=== PATIENT | male | born 1945 | race Caucasian/White ===

== ENCOUNTER → 2018-01-30 14:11 | Outpatient (CLI) | payer MEDICARE, OTHER, SELFPAY ==
[2018-01-30 15:28] LABS: Protein, Urine (Random) < 6.0 mg/dL (<11.9)
[2018-01-30 15:48] LABS: Albumin, Serum 3.8 g/dL (3.2-5.0); BUN 21 mg/dL (7-18); Calcium,Total 9.2 mg/dL (8.5-10.1); Chloride 103 mmol/L (98-107); EST Glomerular Filtration Rate 53 mL/min (>60); Est Glom Filt Rate - Afr Amer 64 mL/min (>60); Glucose 179 mg/dL (74-106); Phosphorus 3.5 mg/dL (2.5-4.9); Potassium 4.8 mmol/L (3.5-5.1); Sodium Level 140 mmol/L (136-145)
== END ==
PROVIDERS: Family Provider Family Medicine Geriatric Medicine; PCP Family Medicine Geriatric Medicine; Visit Provider Internal Medicine Nephrology
DX: E11.22 Type 2 diabetes mellitus with diabetic chronic kidney disease (principal); N18.3 Chronic kidney disease, stage 3 (moderate)
CPT/HCPCS: 36415; 80069; 82570; 84156

== ENCOUNTER → 2018-02-04 13:36 | Outpatient (CLI) | payer MEDICARE, OTHER, SELFPAY ==
[2018-02-04 14:59] LABS: Absolute Lymphocyte Count 1.59 X10^3/ul (0.83-4.51); Absolute Neutrophil Count 5.8 X10^3/uL (2.0-7.7); Basophil# 0.03 X10^3/uL; Basophil% 0.3 % (0-1); Eosinophil# 0.44 X10^3/uL; Eosinophils% 4.9 % (0-5); Hematocrit 45.6 % (40-54); Hemoglobin 15.1 g/dl (13.0-16.5); Lymphocyte # 1.59 X10^3/ul (4.0); Lymphocyte % 17.8 % (19-41); Mean Corp Hgb Conc 33.1 g/gl (32-36); Mean Corpuscular Hgb 29.5 pg (27.0-32.0); Mean Corpuscular Volume 89.1 fL (80-94); Mean Platelet Vol. 10.4 fl (6.2-12.0); Monocyte# 1.11 X10^3/uL; Monocyte% 12.4 % (0-10); Neutrophil # 5.75 X10^3/uL (2.7-7.7); Neutrophil % 64.5 % (47-70); Platelet Count 227 K/mm3 (150-450); RBC Distribution Width SD 45.8 fl (35.1-43.9); Red Blood Count 5.12 M/mm3 (4.6-6.2); White Blood Count 8.9 K/mm3 (4.4-11.0)
[2018-02-04 15:07] LABS: POSITIVE COUNT NO; POSITIVE DIFFERENTIAL NO; POSITIVE MORPHOLOGY NO
[2018-02-04 15:29] LABS: AST(SGOT) 20 U/L (15-37); Alanine Aminotransfer ALT/SGPT 24 U/L (16-61); Albumin, Serum 3.6 g/dL (3.2-5.0); Alkaline Phosphatase 62 U/L (45-117); Anion Gap 12 (5-15); BUN 24 mg/dL (7-18); BUN/Creat Ratio 16.7 RATIO (10-20); Calcium,Total 8.9 mg/dL (8.5-10.1); Chloride 101 mmol/L (98-107); Creatinine, Serum 1.44 mg/dL (0.70-1.30); EST Glomerular Filtration Rate 51 mL/min (>60); Est Glom Filt Rate - Afr Amer 62 mL/min (>60); Globulin 3.6 g/dL (2.2-4.2); Glucose 164 mg/dL (74-106); PSA,Total - Annual Screen 0.02 ng/mL (0.00-4.00); Potassium 4.7 mmol/L (3.5-5.1); Protein, Total 7.2 g/dL (6.4-8.2); Sodium Level 139 mmol/L (136-145); Thyroid Stim Hormone (TSH) 1.94 uIU/mL (0.358-3.74)
[2018-02-05 08:32] LABS: Vitamin D,25 Hydroxy 28.2 ng/mL (29.95-100.01)
== END ==
PROVIDERS: Family Provider Family Medicine Geriatric Medicine; PCP Family Medicine Geriatric Medicine; Visit Provider Family Medicine Geriatric Medicine
DX: E11.9 Type 2 diabetes mellitus without complications (principal); E55.9 Vitamin D deficiency, unspecified; F52.8 Other sexual dysfunction not due to a substance or known physiological condition
CPT/HCPCS: 36415; 80053; 82306; 84153; 84403; 84443; 85025; G0103

== ENCOUNTER → 2018-08-15 09:44 | Outpatient (CLI) | payer MEDICARE, OTHER, SELFPAY ==
[2018-08-15 12:05] LABS: Absolute Lymphocyte Count 2.57 X10^3/ul (0.83-4.51); Absolute Neutrophil Count 3.7 X10^3/uL (2.0-7.7); Basophil# 0.05 X10^3/uL; Basophil% 0.7 % (0-1); Eosinophil# 0.56 X10^3/uL; Eosinophils% 7.3 % (0-5); Hematocrit 44.8 % (40-54); Lymphocyte # 2.57 X10^3/ul (4.0); Lymphocyte % 33.5 % (19-41); Mean Corp Hgb Conc 33.5 g/gl (32-36); Mean Corpuscular Hgb 30.1 pg (27.0-32.0); Mean Platelet Vol. 10.5 fl (6.2-12.0); Monocyte# 0.75 X10^3/uL; Monocyte% 9.8 % (0-10); Neutrophil # 3.73 X10^3/uL (2.7-7.7); Neutrophil % 48.4 % (47-70); Platelet Count 255 K/mm3 (150-450); RBC Distribution Width CV 14.3 % (11.6-14.6); RBC Distribution Width SD 46.4 fl (35.1-43.9); Red Blood Count 4.98 M/mm3 (4.6-6.2); White Blood Count 7.7 K/mm3 (4.4-11.0)
[2018-08-15 12:08] LABS: POSITIVE COUNT NO; POSITIVE DIFFERENTIAL NO; POSITIVE MORPHOLOGY NO
[2018-08-15 12:19] LABS: Vitamin D,25 Hydroxy 33.4 ng/mL (29.95-100.01)
[2018-08-15 12:21] LABS: ALB/GLOB Ratio 1.1 RATIO (0.9-2.4); AST(SGOT) 19 U/L (15-37); Alanine Aminotransfer ALT/SGPT 30 U/L (16-61); Albumin, Serum 3.7 g/dL (3.2-5.0); Alkaline Phosphatase 68 U/L (45-117); Anion Gap 8 (5-15); BUN 21 mg/dL (7-18); BUN/Creat Ratio 13.5 RATIO (10-20); Calcium,Total 8.7 mg/dL (8.5-10.1); Chloride 103 mmol/L (98-107); Creatinine, Serum 1.55 mg/dL (0.70-1.30); EST Glomerular Filtration Rate 47 mL/min (>60); Est Glom Filt Rate - Afr Amer 57 mL/min (>60); Globulin 3.4 g/dL (2.2-4.2); Glucose 254 mg/dL (74-106); Potassium 4.9 mmol/L (3.5-5.1); Protein, Total 7.1 g/dL (6.4-8.2); Sodium Level 138 mmol/L (136-145); Thyroid Stim Hormone (TSH) 1.96 uIU/mL (0.358-3.74)
== END ==
PROVIDERS: Family Provider Family Medicine Geriatric Medicine; PCP Family Medicine Geriatric Medicine; Visit Provider Family Medicine Geriatric Medicine
DX: E11.9 Type 2 diabetes mellitus without complications (principal); E55.9 Vitamin D deficiency, unspecified; I10 Essential (primary) hypertension; F52.8 Other sexual dysfunction not due to a substance or known physiological condition; Z12.5 Encounter for screening for malignant neoplasm of prostate
CPT/HCPCS: 36415; 80053; 82306; 84403; 84443; 85025

== ENCOUNTER → 2018-10-10 12:17 | Outpatient (CLI) | payer MEDICARE, OTHER, SELFPAY ==
[2018-10-10 13:29] LABS: Albumin, Serum 3.8 g/dL (3.2-5.0); BUN 18 mg/dL (7-18); BUN/Creat Ratio 12.2 RATIO (10-20); Calcium,Total 9.1 mg/dL (8.5-10.1); Chloride 103 mmol/L (98-107); Creatinine, Serum 1.47 mg/dL (0.70-1.30); EST Glomerular Filtration Rate 50 mL/min (>60); Est Glom Filt Rate - Afr Amer 61 mL/min (>60); Glucose 274 mg/dL (74-106); Phosphorus 3.5 mg/dL (2.5-4.9); Potassium 4.5 mmol/L (3.5-5.1); Sodium Level 139 mmol/L (136-145)
== END ==
PROVIDERS: Family Provider Family Medicine Geriatric Medicine; PCP Family Medicine Geriatric Medicine; Referring Provider Internal Medicine Nephrology; Visit Provider Internal Medicine Nephrology
DX: N18.3 Chronic kidney disease, stage 3 (moderate) (principal)
CPT/HCPCS: 36415; 80069

== ENCOUNTER → 2018-10-14 12:13 | Outpatient (CLI) | payer MEDICARE, OTHER, SELFPAY ==
[2018-10-14 14:15] LABS: Protein:Creat Ratio 62 mg/g CRE (0-200)
--- OUTSIDE RECORDS SUMMARY | 2018-11-30 14:27 | XMS RPT_ITS ---
:1945 Author Organization [place] Support Name Relationship Address Phone SUZANNA SOUZA Unavailable [address] + [place] [address] [facility] Unavailable [address] + [place] [address] JAGDEEP VILLEGAS Unavailable [address] + [address] [place] [address] HARLEY SUZANNA Unavailable [address] + [place] [address] [facility] [place] Unavailable [address] + [place] [address] JAGDEEP VILLEGAS Unavailable [address] + [address] [place] [address] SUZANNA SOUZA Unavailable [address] + [facility] [address] [facility] [place] Unavailable [address] + [place] [address] JAGDEEP VILLEGAS Unavailable [address] + [address] [place] [address] SUZANNA SOUZA Unavailable [address] + [facility] [address] [facility] [place] Unavailable [address] + [place] [address] JAGDEEP VILLEGAS Unavailable [address] + [address] [place] [address] SUZANNA SOUZA Unavailable [address] + [facility] [place] [address] [facility] [place] Unavailable [address] + [place] [address] JAGDEEP VILLEGAS Unavailable [address] + [address] [place] [address] SUZANNA SOUZA Unavailable [address] + [place] [address] [facility] [place] Unavailable [address] + [place] [address] MAI VILLEGASH Unavailable [address] + [address] [place] [address] SUZANNA SOUZA Unavailable [address] + [place] [address] [facility] [place] Unavailable [address] + [place] [address] JAGDEEP VILLEGAS Unavailable [address] + [address] [place] [address] Care Team Providers Name Role Phone Jai, Zack Chi Primary Care Unavailable Kasia Allen Attending Unavailable Jai, Zack Chi Attending Unavailable Jai, Zack Chi Primary Care Unavailable AlejandroKasia Attending Unavailable Jai, Zack Chi Primary Care Unavailable Jai, Zack Chi Attending Unavailable Jai, Zack Chi Primary Care Unavailable Kasia Allen Attending Unavailable Jai, Zack Chi Primary Care Unavailable Alejandro Kasia Referring Unavailable Alejandro, Kasia Attending Unavailable Jai, Zack Chi Primary Care Unavailable Jai, Zack Chi Attending Unavailable Jai, Zack Chi Primary Care Unavailable PROBLEMS PROBLEMS DATE TYPE CONDITION / CODE ATTENDING STATUS SOURCE 10/14/2018 Unknown N18.3 - Chronic Jai, Zack Chi Active [place] kidney disease, Community stage 3 (moderate) Hospital / N18.3(ICD-10) Repository 02/04/2018 Unknown E11.9 - Type 2 Jai, Zack Chi Active [facility] diabetes mellitus Community without Hospital complications / Repository E11.9(ICD-10) 02/04/2018 Unknown E55.9 - Vitamin D Jai, Zack Chi Active [place] deficiency, Community unspecified / Hospital E55.9(ICD-10) Repository 02/04/2018 Unknown 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 mg/dL Normal UR CREAT 113.00 LAB L501.1930 <11.9 mg/dL Normal 7.0 PROTEIN,UR.R AN. LAB L501.1940 0-200 mg/g CRE Normal PROT:CRE 62 RATIO Performed By: #### L501.0900 #### [facility] [address] [facility] [place], [address] RENAL PROFILE Collected: 10/10/2018 Status: F Source: CHRISTIAN 12:24 PM [facility] REPOSITORY TYPE CODE TESTS RESULT OUT OF RANGE REFERENCE UNITS LAB L501.0100 74-106 mg/dL High GLU 274 Result Comment: Glucose result greater than or equal to 200 mg/dL suggests DIABETES MELLITUS per A.D.A. criteria. Please note revised GLUCOSE reference range effective 2017. LAB L501.1000 7-18 mg/dL Normal BUN 18 LAB L501.1100 0.70-1.30 mg/dL High CREAT,SERUM 1.47 Result Comment: The validity of the calculated GFR AND GFRAA in patients over 70 years has not been determined. Clinical correlation is essential. LAB L501.1110 >60 mL/min Low EST GFR 50 Result Comment: Non- GFR Calc LAB L501.1115 >60 mL/min Normal EST GFR - AA 61 Result Comment: GFR Calc LAB L501.1300 10-20 RATIO Normal BUN/CRE 12.2 LAB L501.1800 3.2-5.0 g/dL Normal ALB 3.8 LAB L501.2200 8.5-10.1 mg/dL CA Normal 9.1 LAB L501.2300 2.5-4.9 mg/dL Normal PHOS 3.5 LAB L501.5300 136-145 mmol/L NA Normal 139 LAB L501.5600 3.5-5.1 mmol/L K Normal 4.5 LAB L501.5900 98-107 mmol/L CL Normal 103 LAB L501.6100 21.0-32.0 mmol/L Normal CO2 29.0 Performed By: #### L500.3600 #### [facility] [address] [place], [place], [address] CBC W/DIFF, AUTOMATED Collected: 08/15/2018 Status: F Source: SCIO 9:45 AM [facility] REPOSITORY TYPE CODE TESTS RESULT OUT OF RANGE REFERENCE UNITS LAB L100.1000 4.4-11.0 K/mm3 Normal WBC 7.7 LAB L100.1200 4.6-6.2 M/mm3 Normal RBC 4.98 LAB L100.1300 13.0-16.5 g/dl Normal HGB 15.0 LAB L100.1400 40-54 % Normal HCT 44.8 LAB L100.1500 80-94 fL Normal MCV 90.0 LAB L100.1600 27.0-32.0 pg Normal MCH 30.1 LAB L100.1700 32-36 g/gl Normal MCHC 33.5 LAB L100.1810 11.6-14.6 % Normal RDW CV 14.3 LAB L100.1820 35.1-43.9 fl High RDW SD 46.4 LAB L100.1900 150-450 K/mm3 Normal PLT 255 LAB L100.2000 6.2-12.0 fl Normal MPV 10.5 LAB L100.2100 47-70 % Normal NEUT% 48.4 LAB L100.2200 19-41 % Normal LY% 33.5 LAB L100.2300 0-10 % Normal MONO% 9.8 LAB L100.2400 0-5 % High EO% 7.3 LAB L100.2500 0-1 % Normal BASO% 0.7 LAB L100.2550 0.0-0.9 % Normal IM GRAN % 0.300 Result Comment: IG% - Immature Granulocytes (promyelocytes, myelocytes and metamyelocytes) > 1% indicates that a LEFT SHIFT is Present. LAB L100.2620 2.0-7.7 X10 3/uL Normal Absolute Neut 3.7 LAB L100.2720 0.83-4.51 X10 3/ul Normal Absolute Lymph 2.57 Performed By: #### L100.0100 #### [facility] [address] [place], [address] VITAMIN D,25 HYDROXY Collected: 08/15/2018 Status: F Source: SCIO 9:45 AM [facility] REPOSITORY TYPE CODE TESTS RESULT OUT OF RANGE REFERENCE UNITS LAB L506.1000 29.95-100.01 ng/mL Normal Vitamin D 33.4 25-OH Result Comment: Vitamin D 25(OH) Status Range Deficiency <20 ng/mL (50nmol/L) Insuffciency 20 - 30 ng/mL (50 - 75 nmol/L) Sufficiency 30 - 100 ng/mL (75 - 250 nmol/L) Toxicity >100 ng/mL (>250 nmol/L) Performed By: #### L506.1000, L509.3000 #### [facility] [address] [place], [address] TESTOSTERONE, SERUM TOTAL Collected: 08/15/2018 Status: F Source: CHRISTIAN 9:45 AM [facility] REPOSITORY TYPE CODE TESTS RESULT OUT OF REFERENCE UNITS RANGE LAB L509.3000 ng/dL Testosterone Normal 95.76 Result Comment: NORMAL REFERENCE RANGES MALE AGE <50 123.06 - 813.86 ng/dL MALE AGE >50 89.98 - 780.10 ng/dL FEMALE PREMENOPAUSE AGE 21 - 60 9.01 - 47.94 ng/dL FEMALE POSTMENOPAUSE AGE 45 - 89 <7.00 - 45.62 ng/dL REFERENCE RANGE AND METHODOLOGY CHANGED 10/23/2017 Performed By: #### L506.1000, L509.3000 #### [facility] [address] [place], [address] COMPREHENSIVE METABOLIC Collected: 08/15/2018 Status: F Source: CHRISTIAN [facility] 9:45 AM [facility] REPOSITORY TYPE CODE TESTS RESULT OUT OF RANGE REFERENCE UNITS LAB L501.0100 74-106 mg/dL High GLU 254 Result Comment: Glucose result greater than or equal to 200 mg/dL suggests DIABETES MELLITUS per A.D.A. criteria. Please note revised GLUCOSE reference range effective 2017. LAB L501.1000 7-18 mg/dL High BUN 21 LAB L501.1100 0.70-1.30 mg/dL High CREAT,SERUM 1.55 Result Comment: The validity of the calculated GFR AND GFRAA in patients over 70 years has not been determined. Clinical correlation is essential. LAB L501.1110 >60 mL/min Low EST GFR 47 Result Comment: Non- GFR Calc LAB L501.1115 >60 mL/min Low EST GFR - AA 57 Result Comment: GFR Calc LAB L501.1300 10-20 RATIO Normal BUN/CRE 13.5 LAB L501.1500 6.4-8.2 g/dL T Normal PROT 7.1 LAB L501.1800 3.2-5.0 g/dL Normal ALB 3.7 LAB L501.1950 2.2-4.2 g/dL Normal GLOB 3.4 LAB L501.2000 0.9-2.4 RATIO Normal A/G 1.1 LAB L501.2200 8.5-10.1 mg/dL CA Normal 8.7 LAB L501.4100 15-37 U/L Normal AST 19 Result Comment: Slight Hemolysis, Result may be falsely increased. LAB L501.4305 45-117 U/L Normal ALK P 68 LAB L501.4405 16-61 U/L Normal ALT 30 LAB L501.4600 0.20-1.00 mg/dL Normal T BILI 0.50 LAB L501.5300 136-145 mmol/L Normal NA 138 LAB L501.5600 3.5-5.1 mmol/L Normal K 4.9 Result Comment: Slight Hemolysis, Result may be falsely increased. LAB L501.5900 98-107 mmol/L Normal CL 103 LAB L501.6100 21.0-32.0 mmol/L Normal CO2 27.0 LAB L501.6200 5-15 Normal 8 GAP Performed By: #### L500.4050, L501.9520 #### [facility] [address] [facility] [place], [place], [address] THYROID STIM HORMONE Collected: 08/15/2018 Status: F Source: SCIO (TSH) 9:45 AM [facility] REPOSITORY TYPE CODE TESTS RESULT OUT OF RANGE REFERENCE UNITS LAB L501.9520 0.358-3.74 uIU/mL Normal TSH 1.96 Performed By: #### L500.4050, L501.9520 #### [facility] [address] [facility]. [place], [place], [address] CBC W/DIFF, AUTOMATED Collected: 02/04/2018 Status: F Source: CHRISTIAN 1:39 PM [facility] REPOSITORY TYPE CODE TESTS RESULT OUT OF RANGE REFERENCE UNITS LAB L100.1000 4.4-11.0 K/mm3 Normal WBC 8.9 LAB L100.1200 4.6-6.2 M/mm3 Normal RBC 5.12 LAB L100.1300 13.0-16.5 g/dl Normal HGB 15.1 LAB L100.1400 40-54 % Normal HCT 45.6 LAB L100.1500 80-94 fL Normal MCV 89.1 LAB L100.1600 27.0-32.0 pg Normal MCH 29.5 LAB L100.1700 32-36 g/gl Normal MCHC 33.1 LAB L100.1810 11.6-14.6 % Normal RDW CV 14.0 LAB L100.1820 35.1-43.9 fl High RDW SD 45.8 LAB L100.1900 150-450 K/mm3 Normal PLT 227 LAB L100.2000 6.2-12.0 fl Normal MPV 10.4 LAB L100.2100 47-70 % Normal NEUT% 64.5 LAB L100.2200 19-41 % Low LY% 17.8 LAB L100.2300 0-10 % High MONO% 12.4 LAB L100.2400 0-5 % Normal EO% 4.9 LAB L100.2500 0-1 % Normal BASO% 0.3 LAB L100.2550 0.0-0.9 % Normal IM GRAN % 0.100 Result Comment: IG% - Immature Granulocytes (promyelocytes, myelocytes and metamyelocytes) > 1% indicates that a LEFT SHIFT is Present. LAB L100.2620 2.0-7.7 X10 3/uL Normal Absolute Neut 5.8 LAB L100.2720 0.83-4.51 X10 3/ul Normal Absolute Lymph 1.59 Performed By: #### L100.0100 #### [facility] [address] [place], [place], [address] COMPREHENSIVE METABOLIC Collected: 02/04/2018 Status: F Source: [facility]RISTIAN [facility] 1:39 PM [facility] REPOSITORY TYPE CODE TESTS RESULT OUT OF RANGE REFERENCE UNITS LAB L501.0100 74-106 mg/dL High GLU 164 Result Comment: Fasting Glucose result greater than or equal to 126 mg/dL suggests DIABETES MELLITUS per A.D.A. criteria. Please note revised GLUCOSE reference range effective 2017. LAB L501.1000 7-18 mg/dL High BUN 24 LAB L501.1100 0.70-1.30 mg/dL High CREAT,SERUM 1.44 Result Comment: The validity of the calculated GFR AND GFRAA in patients over 70 years has not been determined. Clinical correlation is essential. LAB L501.1110 >60 mL/min Low EST GFR 51 Result Comment: Non- GFR Calc LAB L501.1115 >60 mL/min Normal EST GFR - AA 62 Result Comment: GFR Calc LAB L501.1300 10-20 RATIO Normal BUN/CRE 16.7 LAB L501.1500 6.4-8.2 g/dL T Normal PROT 7.2 LAB L501.1800 3.2-5.0 g/dL Normal ALB 3.6 LAB L501.1950 2.2-4.2 g/dL Normal GLOB 3.6 LAB L501.2000 0.9-2.4 RATIO Normal A/G 1.0 LAB L501.2200 8.5-10.1 mg/dL CA Normal 8.9 LAB L501.4100 15-37 U/L Normal AST 20 LAB L501.4305 45-117 U/L Normal ALK P 62 LAB L501.4405 16-61 U/L Normal ALT 24 Result Comment: Please note revised ALT reference range effective 2017. LAB L501.4600 0.20-1.00 mg/dL Normal T BILI 0.40 LAB L501.5300 136-145 mmol/L Normal NA 139 LAB L501.5600 3.5-5.1 mmol/L Normal K 4.7 LAB L501.5900 98-107 mmol/L Normal CL 101 LAB L501.6100 21.0-32.0 mmol/L Normal CO2 26.0 LAB L501.6200 5-15 Normal GAP 12 Performed By: #### L500.4050, L501.9520, L501.9910 #### [facility] [address] [place], [place], [address] THYROID STIM HORMONE Collected: 02/04/2018 Status: F Source: CHRISTIAN (TSH) 1:39 PM [facility] REPOSITORY TYPE CODE TESTS RESULT OUT OF RANGE REFERENCE UNITS LAB L501.9520 0.358-3.74 uIU/mL Normal TSH 1.94 Performed By: #### L500.4050, L501.9520, L501.9910 #### [facility] [address] [place], [address] PSA,TOTAL - ANNUAL Collected: 02/04/2018 Status: F Source: CHRISTIAN SCREEN 1:39 PM [facility] REPOSITORY TYPE CODE TESTS RESULT OUT OF RANGE REFERENCE UNITS LAB L501.9910 0.00-4.00 ng/mL Normal PSA,TOT 0.02 SCREEN Result Comment: This test was performed using the TPSA assay method for the EvalYou chemistry system. Values obtained with different assay methods cannot be used interchangably. When changing PSA assays in the course of monitoring a patient, additional sequential testing should be carried out to confirm baseline values. Performed By: #### L500.4050, L501.9520, L501.9910 #### [facility] [address] [place], [address] VITAMIN D,25 HYDROXY Collected: 02/04/2018 Status: F Source: [facility]STIAN 1:39 PM [facility] REPOSITORY TYPE CODE TESTS RESULT OUT OF REFERENCE UNITS RANGE LAB L506.1000 29.95-100.01 ng/mL Low Vitamin D 28.2 25-OH Result Comment: Vitamin D 25(OH) Status Range Deficiency <20 ng/mL (50nmol/L) Insuffciency 20 - 30 ng/mL (50 - 75 nmol/L) Sufficiency 30 - 100 ng/mL (75 - 250 nmol/L) Toxicity >100 ng/mL (>250 nmol/L) Performed By: #### L506.1000, L509.3000 #### [facility] [address] [place], [address] TESTOSTERONE, SERUM TOTAL Collected: 02/04/2018 Status: F Source: [facility]STIAN 1:39 PM [facility] REPOSITORY TYPE CODE TESTS RESULT OUT OF REFERENCE UNITS RANGE LAB L509.3000 ng/dL Testosterone Normal 93.26 Result Comment: NORMAL REFERENCE RANGES MALE AGE <50 123.06 - 813.86 ng/dL MALE AGE >50 89.98 - 780.10 ng/dL FEMALE PREMENOPAUSE AGE 21 - 60 9.01 - 47.94 ng/dL FEMALE POSTMENOPAUSE AGE 45 - 89 <7.00 - 45.62 ng/dL REFERENCE RANGE AND METHODOLOGY CHANGED 10/23/2017 Performed By: #### L506.1000, L509.3000 #### [facility] [address] [facility] [place], [address] PROTEIN+CREATININE Collected: Status: F Source: SCIO RATIO,URINE 01/30/2018 2:37 PM [facility] REPOSITORY TYPE CODE TESTS RESULT OUT OF RANGE REFERENCE UNITS LAB L501.1200 NO RANGE EST. mg/dL 52.60 Normal UR CREAT LAB L501.1930 <11.9 mg/dL < 6.0 Normal PROTEIN,UR. RAN. LAB L501.1940 0-200 mg/g CRE Test Normal not performed PROT:CRE RATIO Performed By: #### L501.0900 #### [facility] [address] [place], [address] RENAL PROFILE Collected: 01/30/2018 Status: F Source: SCIO 2:37 PM [facility] REPOSITORY TYPE CODE TESTS RESULT OUT OF RANGE REFERENCE UNITS LAB L501.0100 74-106 mg/dL High GLU 179 Result Comment: Fasting Glucose result greater than or equal to 126 mg/dL suggests DIABETES MELLITUS per A.D.A. criteria. Please note revised GLUCOSE reference range effective 2017. LAB L501.1000 7-18 mg/dL High BUN 21 LAB L501.1100 0.70-1.30 mg/dL High CREAT,SERUM 1.40 Result Comment: The validity of the calculated GFR AND GFRAA in patients over 70 years has not been determined. Clinical correlation is essential. LAB L501.1110 >60 mL/min Low EST GFR 53 Result Comment: Non- GFR Calc LAB L501.1115 >60 mL/min Normal EST GFR - AA 64 Result Comment: GFR Calc LAB L501.1300 10-20 RATIO Normal BUN/CRE 15.0 LAB L501.1800 3.2-5.0 g/dL Normal ALB 3.8 LAB L501.2200 8.5-10.1 mg/dL CA Normal 9.2 LAB L501.2300 2.5-4.9 mg/dL Normal PHOS 3.5 LAB L501.5300 136-145 mmol/L NA Normal 140 LAB L501.5600 3.5-5.1 mmol/L K Normal 4.8 LAB L501.5900 98-107 mmol/L CL Normal 103 LAB L501.6100 21.0-32.0 mmol/L Normal CO2 31.0 Performed By: #### L500.3600 #### [facility] [address] [place], [address] ALLERGIES ALLERGIES DATE TYPE / CODE NAME / CODE REACTION SEVERITY SOURCE 10/13/2013 Drug Penicillins/ Rash Unknown [facility] Allergy/4160 [id number]([facility] 33171(SNOMED XNORM) Repository CT) ENCOUNTERS ENCOUNTERS ADMIT/DISCHARGE ACCOUNT ADMITTING ENCOUNTER LOCATION SOURCE NUMBER CLASS 10/14/2018 [id number] [facility] Repository 10/14/2018 [id number] Ambulatory [facility] ing:LAB.FUTUR Repository E 10/10/2018 [id number] [facility] ing:LAB.FUTUR Repository E 08/15/2018 [id number] Ambulatory [place] [facility] ing:POLAB3 Repository 02/10/2018 [id number] [facility] [place] [facility] ing:LAB.FUTUR Repository E 02/04/2018 [id number] [facility] [place] [facility] ing:POLAB3 Repository 01/30/2018 [id number] [facility]ulatory [facility] [place] [facility] ing:LAB Repository PAYERS PAYERS ENCOUNTER GUARANTOR PAYER SUBSCRIBER SOURCE 10/14/2018 RENATA Kimble Primary RENATA Shyanne [place] [id number] Insurance:MEDICARE FISHTERDOB: [facility] PART A [facility] [id number] Number: Repository [id number]: [phone] [id number] [phone] () Date:2018-10-14 10/14/2018 Secondary RENATA Gonzales Insurance:PHYSICIAN FISHTERDOB: Community MUTUAL INS [employer]icy [id number] Hospital Number: Repository [id number] Date:1672-10-91SN[address] [address]BO: 10/14/2018 Tertiary NOT GIVENUNK [facility] Insurance:SELF PAY [facility] Number: Effective Repository Date:2018-10-14 10/14/2018 RENATA Kimble Primary RENATA Gonzales [id number] Insurance:MEDICARE [facility] [id number] Number: Repository [id number]: [phone] [id number] [phone] () Date:2018-10-14 10/14/2018 Secondary RENATA Gonzales Insurance:PHYSICIAN FISHTERDOB: [facility] MUTUAL INS COPolicy [id number] Hospital Number: Repository [id number] Date:0611-64-79SX[address] [address]DE: 10/14/2018 Tertiary NOT GIVENUNK [place] Insurance:SELF PAY [facility] Number: Effective Repository Date:2018-10-14 10/10/2018 RENATA Kimble Primary RENATA oGnzales [id number] Insurance:MEDICARE FISHTERDOB[facility] [id number] Number: Repository [id number]: 330 [id number] [phone] () Date:2018-02-05 10/10/2018 Secondary RENATA Gonzales Insurance:PHYSICIAN FISHTERDOB: Community M[employer]UAL INS [employer] [id number] Hospital Number: Repository [id number] Date:6108-85-35SY[address] [address]HV: 10/10/2018 Tertiary NOT GIVENUNK [facility] Insurance:SELF PAY [facility] Effective Repository Date:2018-02-05 08/15/2018 RENATA Kimble Primary RENATA Gonzales [id number] Insurance:MEDICARE FISHTERDOB: Community [address] [facility] [id number] Number: Repository [id number]: [phone] [id number] [phone] (HP) Date:2018-08-15 08/15/2018 Secondary RENATA Kimble [facility] Insurance:PHYSICIAN FISHTERDOB: Community [facility] [id number] Hospital Number: Repository [id number] Date:7855-12-33JL [address] [address]ZV: 08/15/2018 Tertiary NOT GIVENUNK [facility] Insurance:SELF PAY [facility]: Effective Repository Date:2018-08-15 02/10/2018 RENATA Kimble Primary RENATA Gonzales [id number] Insurance:MEDICARE FISHTERDOB: Community [address] [facility] [id number] [place] Number: Repository [id number]: [id number] [phone] Date:2018-02-10 () 02/10/2018 Secondary RENATA Gonzales Insurance:PHYSICIAN FISHTERDOB: Community [facility] [id number] Hospital Number: Repository [id number] Date:2041-26-02OD [address] [address]PG: 02/10/2018 Tertiary NOT GIVENUNK [facility] Insurance:SELF PAY [facility] Hospital Number: Effective Repository Date:2018-02-10 02/04/2018 RENATA Kimble Primary RENATA Gonzales [id number] Insurance:MEDICARE FISHTERDOB: Community [address] [facility] [id number] [place] Number: Repository [id number]: [id number] [phone] Date:2018-02-04 () 02/04/2018 Secondary RENATA Gonzales Insurance:PHYSICIAN FISHTERDOB: Community [facility] INS [facility] [id number] Hospital Number: Repository [id number] Date:5799-69-18AI [address] [address]VD: 02/04/2018 Tertiary NOT GIVENUNK [facility] Insurance:SELF PAY [facility] Number: Effective Repository Date:2018-02-04 01/30/2018 RENATA Kimble Primary RENATA Gonzales [id number] Insurance:MEDICARE FISHTERDOB: [facility] [id number] Number: Repository [id number]: [id number] [phone] Date:2018-01-306 () 01/30/2018 Secondary RENATA Gonzales Insurance:PHYSICIAN FISHTERDOB: Community [facility] INS [facility] [id number] Hospital Number: Repository [id number] Date:5788-21-46DW [address] [address]TJ: 01/30/2018 Tertiary NOT GIVENUNK [place] Insurance:SELF PAY [facility] Number: Effective Repository Date:2018-01-30
== END ==
PROVIDERS: Family Provider Family Medicine Geriatric Medicine; PCP Family Medicine Geriatric Medicine; Visit Provider Internal Medicine Nephrology
DX: E11.22 Type 2 diabetes mellitus with diabetic chronic kidney disease (principal)
CPT/HCPCS: 82570; 84156

== ENCOUNTER → 2019-02-24 | Outpatient (CLI) | payer MEDICARE, OTHER, SELFPAY ==
[2019-02-24 16:57] LABS: Absolute Lymphocyte Count 2.71 X10^3/ul (0.83-4.51); Absolute Neutrophil Count 5.1 X10^3/uL (2.0-7.7); Basophil# 0.03 X10^3/uL; Basophil% 0.3 % (0-1); Eosinophil# 0.14 X10^3/uL; Eosinophils% 1.6 % (0-5); Hematocrit 45.6 % (40-54); Hemoglobin 15.3 g/dl (13.0-16.5); Lymphocyte # 2.71 X10^3/ul (4.0); Lymphocyte % 30.2 % (19-41); Mean Corp Hgb Conc 33.6 g/gl (32-36); Mean Corpuscular Hgb 29.8 pg (27.0-32.0); Mean Corpuscular Volume 88.7 fL (80-94); Mean Platelet Vol. 10.2 fl (6.2-12.0); Monocyte# 0.96 X10^3/uL; Monocyte% 10.7 % (0-10); Neutrophil # 5.12 X10^3/uL (2.7-7.7); Neutrophil % 57.1 % (47-70); Platelet Count 256 K/mm3 (150-450); RBC Distribution Width CV 13.8 % (11.6-14.6); RBC Distribution Width SD 44.6 fl (35.1-43.9); Red Blood Count 5.14 M/mm3 (4.6-6.2)
[2019-02-24 17:17] LABS: POSITIVE COUNT NO; POSITIVE DIFFERENTIAL NO; POSITIVE MORPHOLOGY NO
[2019-02-24 17:23] LABS: ALB/GLOB Ratio 1.2 RATIO (0.9-2.4); AST(SGOT) 17 U/L (15-37); Alanine Aminotransfer ALT/SGPT 28 U/L (16-61); Albumin, Serum 4.1 g/dL (3.2-5.0); Alkaline Phosphatase 75 U/L (45-117); Anion Gap 6 (5-15); BUN 22 mg/dL (7-18); BUN/Creat Ratio 14.8 RATIO (10-20); Calcium,Total 9.4 mg/dL (8.5-10.1); Chloride 103 mmol/L (98-107); Creatinine, Serum 1.49 mg/dL (0.70-1.30); EST Glomerular Filtration Rate 49 mL/min (>60); Est Glom Filt Rate - Afr Amer 60 mL/min (>60); Globulin 3.4 g/dL (2.2-4.2); Glucose 233 mg/dL (74-106); PSA,Total - Annual Screen 0.06 ng/mL (0.00-4.00); Potassium 4.7 mmol/L (3.5-5.1); Protein, Total 7.5 g/dL (6.4-8.2); Sodium Level 138 mmol/L (136-145); Thyroid Stim Hormone (TSH) 1.12 uIU/mL (0.358-3.74)
[2019-02-24 17:24] LABS: Vitamin D,25 Hydroxy 20.3 ng/mL (29.95-100.01)
== END | disposition home or self-care (01) ==
LOC: POLAB3 15:32
PROVIDERS: Family Provider Family Medicine Geriatric Medicine; PCP Family Medicine Geriatric Medicine; Visit Provider Family Medicine Geriatric Medicine
DX: I12.9 Hypertensive chronic kidney disease with stage 1 through stage 4 chronic kidney disease, or unspecified chronic kidney disease (principal); E55.9 Vitamin D deficiency, unspecified; F52.8 Other sexual dysfunction not due to a substance or known physiological condition; E11.22 Type 2 diabetes mellitus with diabetic chronic kidney disease; N18.3 Chronic kidney disease, stage 3 (moderate)
CPT/HCPCS: 36415; 80053; 82306; 84153; 84403; 84443; 85025; G0103

== ENCOUNTER 2019-05-01 22:42 | Emergency (ER) | payer MEDICARE, OTHER, SELFPAY ==
[2019-05-01 22:43] VITALS: BP 164/88; PULSE 95; RESP 16; TEMP 36.2; O2SAT 97; BMI 26.0
--- NOTE | 2019-05-01 23:04 | RAD_ITS ---
STUDY: X-RAY CHEST REASON FOR EXAM: Male, 74 years old. Chest pain. TECHNIQUE: Single AP portable view of the chest. COMPARISON: Prior comparison studies are not available for review at this time. FINDINGS: The lungs are clear and expanded. There is no demonstrated pleural abnormality. Normal size heart. Normal mediastinum and arleth. Normal visualized pulmonary arteries. There is atherosclerotic calcification of the aortic arch with tortuosity. There is dextroscoliosis of the thoracic spine. There is no demonstrated abnormality of the visualized soft tissue structures of the upper abdomen. RAD/Chest 1 View (Portable) IMPRESSION: No active pulmonary disease. Electronically Signed: Luis Miguel Parker MD at 15:10 EDT Tel , Service support ,
--- NOTE | 2019-05-01 23:04 | EKG12_ITS ---
Test Reason : PALPITATIONS Blood Pressure : / mmHG Vent. Rate : 093 BPM Atrial Rate : 093 BPM P-R Int : 166 ms QRS Dur : 086 ms QT Int : 358 ms P-R-T Axes : 035 026 040 degrees QTc Int : 445 ms Sinus rhythm with frequent Premature ventricular complexes Otherwise normal ECG Confirmed by NANI PEREA, DEIDRA ([id number]), field map editor AUSTIN TURNER ([id number]) on 05/04/2019 1:29:30 PM Referred By: CARINA PADILLA Confirmed By:DEIDRA CARDOZA MD
[2019-05-01 23:06] VITALS: BP 158/72; PULSE 89; RESP 17; O2SAT 98
[2019-05-01 23:12] VITALS: O2SAT 97
[2019-05-01] MEDS: Aspirin 81 MG TAB.CHEW 324 MG PO (23:17)
[2019-05-01 23:24] LABS: Absolute Lymphocyte Count 3.18 X10^3/ul (0.83-4.51); Absolute Neutrophil Count 4.7 X10^3/uL (2.0-7.7); Basophil# 0.04 X10^3/uL; Basophil% 0.4 % (0-1); Eosinophil# 0.16 X10^3/uL; Eosinophils% 1.8 % (0-5); Hemoglobin 14.8 g/dl (13.0-16.5); Lymphocyte # 3.18 X10^3/ul (4.0); Lymphocyte % 35.2 % (19-41); Mean Corp Hgb Conc 33.6 g/gl (32-36); Mean Corpuscular Hgb 29.7 pg (27.0-32.0); Mean Corpuscular Volume 88.2 fL (80-94); Mean Platelet Vol. 9.8 fl (6.2-12.0); Monocyte# 0.91 X10^3/uL; Monocyte% 10.1 % (0-10); Neutrophil # 4.72 X10^3/uL (2.7-7.7); Neutrophil % 52.3 % (47-70); Platelet Count 225 K/mm3 (150-450); RBC Distribution Width CV 13.7 % (11.6-14.6); RBC Distribution Width SD 43.6 fl (35.1-43.9); Red Blood Count 4.99 M/mm3 (4.6-6.2)
[2019-05-01 23:25] LABS: POSITIVE COUNT NO; POSITIVE DIFFERENTIAL NO; POSITIVE MORPHOLOGY NO
[2019-05-01 23:38] LABS: Anion Gap 6 (5-15); BUN 29 mg/dL (7-18); BUN/Creat Ratio 16.3 RATIO (10-20); Calcium,Total 8.5 mg/dL (8.5-10.1); Chloride 103 mmol/L (98-107); Creatinine, Serum 1.78 mg/dL (0.70-1.30); EST Glomerular Filtration Rate 40 mL/min (>60); Est Glom Filt Rate - Afr Amer 49 mL/min (>60); Estimated Creatinine Clearance 41.17 ml/min; Glucose 306 mg/dL (74-106); Sodium Level 135 mmol/L (136-145)
[2019-05-02] MEDS: 0.9% Normal Saline 1,000 ML 999 ML IV (00:13)
--- NOTE | 2019-05-02 00:32 | ED.DCSUM_ITS ---
- ER Visit Summary Date of Service: 05/02/19 Chief Complaint: Palpitations History of Present Illness: The patient is a 74 M who presents with palpitations. Is been ongoing for about 3 hours. He feels intermittently. He denies any chest pain, tightness or squeezing with this. He states his tinnitus is a little bit worse but denies any other symptoms. No shortness of breath. This has never happened previously. He felt his pulse and it was irregular at home and he was concerned. He is a diabetic. Physical Examination: Vital signs reviewed. HEENT exam unremarkable. Heart is regular rate and rhythm without murmurs. PVCs are noted. Lungs are clear to auscultation. Abdomen is soft and nontender. Extremities reveal no edema. Peripheral pulses are equal. Skin exam normal. Neurologic exam normal. Test Results: EKG is sinus rhythm with rate of 93. PVCs are noted. The morphology is unchanged from previous EKGs. Labs show a sodium 135, creatinine 1.78, troponin normal. Glucose 306 Emergency Department Course and Treatment: The patient was given aspirin. He was given IV fluids. At times he is in bigeminy on the monitor. Currently his monitor shows no PVCs. This is benign. Patient will be given follow-up with cardiology. Treatment Plan: [] Disposition: Discharge Impression: PVCs, hyperglycemia This note was generated with [employer] dictation software. It may contain incorrect words, spelling, and punctuation that were not noted in review of the chart prior to signing ED Disposition - Plan for ED Patient: Referrals: Zack Vergara Chi, MD [Primary Care Provider] -
--- NOTE | 2019-05-02 00:34 | ED.DEP ---
ED Disposition - Plan for ED Patient: Disposition: Home or Assisted Living Instructions: Premature Ventricular Contractions Referrals: Zack Vergara Chi, MD [Primary Care Provider] - Norm Treviño MD [STAFF PHYSICIAN] -
[2019-05-02 00:47] VITALS: BP 129/66; PULSE 81; RESP 14; O2SAT 96
== END 2019-05-02 00:47 | disposition home or self-care (01) ==
PROVIDERS: Emergency Provider Emergency Medicine; Family Provider Family Medicine Geriatric Medicine; PCP Family Medicine Geriatric Medicine
DX: I49.3 Ventricular premature depolarization (principal); E11.65 Type 2 diabetes mellitus with hyperglycemia; Z79.4 Long term (current) use of insulin
CPT/HCPCS: 71045; 80048; 84484; 85025; 93005; 96360; 99284; J7030; A4216

== ENCOUNTER → 2019-05-05 | Outpatient (CLI) | payer MEDICARE, OTHER, SELFPAY ==
[2019-05-01 22:43] VITALS: BMI 26.0
[2019-05-05 17:25] LABS: Anion Gap 9 (5-15); BUN 18 mg/dL (7-18); BUN/Creat Ratio 12.2 RATIO (10-20); Calcium,Total 9.7 mg/dL (8.5-10.1); Chloride 101 mmol/L (98-107); Creatinine, Serum 1.47 mg/dL (0.70-1.30); EST Glomerular Filtration Rate 50 mL/min (>60); Est Glom Filt Rate - Afr Amer 61 mL/min (>60); Glucose 90 mg/dL (74-106); Potassium 4.8 mmol/L (3.5-5.1); Sodium Level 140 mmol/L (136-145)
== END | disposition home or self-care (01) ==
LOC: POLAB3 15:31
PROVIDERS: Family Provider Family Medicine Geriatric Medicine; PCP Family Medicine Geriatric Medicine; Visit Provider Family Medicine Geriatric Medicine
DX: N18.3 Chronic kidney disease, stage 3 (moderate) (principal)
CPT/HCPCS: 36415; 80048

== ENCOUNTER → 2019-08-14 | Outpatient (CLI) | payer MEDICARE, OTHER, SELFPAY ==
[2019-08-14 13:35] LABS: Absolute Lymphocyte Count 2.11 X10^3/uL (0.83-4.51); Absolute Neutrophil Count 4.1 X10^3/uL (2.0-7.7); Basophil# 0.05 X10^3/uL; Basophil% 0.7 % (0-1); Eosinophil# 0.13 X10^3/uL; Eosinophils% 1.8 % (0-5); Hematocrit 45.2 % (40-54); Hemoglobin 14.9 g/dL (13.0-16.5); Lymphocyte # 2.11 X10^3/ul (4.0); Lymphocyte % 29.9 % (19-41); Mean Corpuscular Hgb 29.4 pg (27.0-32.0); Mean Corpuscular Volume 89.2 fL (80-94); Mean Platelet Vol. 10.3 fl (6.2-12.0); Monocyte# 0.65 X10^3/uL; Monocyte% 9.2 % (0-10); NRBC Flagged by Analyzer 0 % (0-5); Neutrophil # 4.11 X10^3/uL (2.7-7.7); Neutrophil % 58.3 % (47-70); Platelet Count 245 K/mm3 (150-450); RBC Distribution Width CV 13.6 % (11.6-14.6); RBC Distribution Width SD 43.8 fl (35.1-43.9); Red Blood Count 5.07 M/mm3 (4.6-6.2); White Blood Count 7.1 K/mm3 (4.4-11.0)
[2019-08-14 13:59] LABS: Microalbumin,Random Urine < 5.0 mg/L (NO RANGE EST.); Protein, Urine (Random) < 6.0 mg/dL (<11.9)
[2019-08-14 14:12] LABS: Hemoglobin A1c 7.7 % (4.2-6.3)
[2019-08-14 14:13] LABS: ALB/GLOB Ratio 1.2 RATIO (0.9-2.4); AST(SGOT) 18 U/L (15-37); Alanine Aminotransfer ALT/SGPT 29 U/L (16-61); Albumin, Serum 3.8 g/dL (3.2-5.0); Alkaline Phosphatase 78 U/L (45-117); Anion Gap 9 (5-15); BUN 20 mg/dL (7-18); BUN/Creat Ratio 13.3 RATIO (10-20); Calcium,Total 8.8 mg/dL (8.5-10.1); Chloride 104 mmol/L (98-107); Cholesterol 122 mg/dL (200); EST Glomerular Filtration Rate 49 mL/min (>60); Est Glom Filt Rate - Afr Amer 59 mL/min (>60); Globulin 3.3 g/dL (2.2-4.2); Glucose 235 mg/dL (74-106); High Density Lipoprotein 36 mg/dL; Phosphorus 3.7 mg/dL (2.5-4.9); Potassium 4.6 mmol/L (3.5-5.1); Protein, Total 7.1 g/dL (6.4-8.2); Sodium Level 140 mmol/L (136-145); Thyroid Stim Hormone (TSH) 1.45 uIU/mL (0.358-3.74); Triglycerides 220 mg/dL; Very Low Density Lipoprotein 44 mg/dL (5-40)
[2019-08-14 14:15] LABS: Vitamin D,25 Hydroxy 33.1 ng/mL (29.95-100.01)
[2019-08-14 14:16] LABS: PTHIN 79.7 pg/mL (18.4-80.1)
== END | disposition home or self-care (01) ==
PROVIDERS: Family Provider Family Medicine Geriatric Medicine; PCP Family Medicine Geriatric Medicine; Referring Provider Internal Medicine Nephrology; Visit Provider Internal Medicine Nephrology
DX: E55.9 Vitamin D deficiency, unspecified (principal); I12.9 Hypertensive chronic kidney disease with stage 1 through stage 4 chronic kidney disease, or unspecified chronic kidney disease; N18.3 Chronic kidney disease, stage 3 (moderate); E11.22 Type 2 diabetes mellitus with diabetic chronic kidney disease; E78.5 Hyperlipidemia, unspecified
CPT/HCPCS: 36415; 80053; 80061; 82043; 82306; 82570; 83036; 83970; 84100; 84156; 84443; 85025

== ENCOUNTER → 2019-11-16 11:15 | Outpatient (CLI) | payer MEDICARE, OTHER, SELFPAY ==
[2019-11-16 13:05] LABS: Absolute Lymphocyte Count 2.93 X10^3/uL (0.83-4.51); Absolute Neutrophil Count 4.6 X10^3/uL (2.0-7.7); Basophil# 0.06 X10^3/uL; Basophil% 0.7 % (0-1); Eosinophil# 0.18 X10^3/uL; Eosinophils% 2.1 % (0-5); Hematocrit 48.6 % (40-54); Lymphocyte # 2.93 X10^3/ul (4.0); Lymphocyte % 33.8 % (19-41); Mean Corp Hgb Conc 32.9 g/dL (32-36); Mean Corpuscular Hgb 29.3 pg (27.0-32.0); Mean Corpuscular Volume 88.8 fL (80-94); Mean Platelet Vol. 10.1 fl (6.2-12.0); Monocyte# 0.85 X10^3/uL; Monocyte% 9.8 % (0-10); NRBC Flagged by Analyzer 0 % (0-5); Neutrophil # 4.62 X10^3/uL (2.7-7.7); Neutrophil % 53.3 % (47-70); Platelet Count 303 K/mm3 (150-450); RBC Distribution Width CV 13.2 % (11.6-14.6); RBC Distribution Width SD 42.9 fl (35.1-43.9); Red Blood Count 5.47 M/mm3 (4.6-6.2); White Blood Count 8.7 K/mm3 (4.4-11.0)
[2019-11-16 13:23] LABS: Vitamin D,25 Hydroxy 23.5 ng/mL (29.95-100.01)
[2019-11-16 13:28] LABS: ALB/GLOB Ratio 1.1 RATIO (0.9-2.4); AST(SGOT) 18 U/L (15-37); Alanine Aminotransfer ALT/SGPT 39 U/L (16-61); Alkaline Phosphatase 88 U/L (45-117); Anion Gap 5 (5-15); BUN 22 mg/dL (7-18); BUN/Creat Ratio 13.9 RATIO (10-20); Calcium,Total 9.6 mg/dL (8.5-10.1); Chloride 104 mmol/L (98-107); Creatinine, Serum 1.58 mg/dL (0.70-1.30); EST Glomerular Filtration Rate 46 mL/min (>60); Est Glom Filt Rate - Afr Amer 56 mL/min (>60); Globulin 3.6 g/dL (2.2-4.2); Glucose 179 mg/dL (74-106); Protein, Total 7.6 g/dL (6.4-8.2); Sodium Level 139 mmol/L (136-145); Thyroid Stim Hormone (TSH) 2.32 uIU/mL (0.358-3.74)
== END ==
PROVIDERS: Family Provider Family Medicine Geriatric Medicine; PCP Family Medicine Geriatric Medicine; Visit Provider Family Medicine Geriatric Medicine
DX: E11.9 Type 2 diabetes mellitus without complications (principal); E55.9 Vitamin D deficiency, unspecified; I10 Essential (primary) hypertension; F52.8 Other sexual dysfunction not due to a substance or known physiological condition
CPT/HCPCS: 36415; 80053; 82306; 84403; 84443; 85025

== ENCOUNTER → 2020-05-10 | Outpatient (CLI) | payer MEDICARE, OTHER, SELFPAY ==
[2020-05-10 15:40] LABS: Absolute Lymphocyte Count 2.56 X10^3/uL (0.83-4.51); Absolute Neutrophil Count 5.2 X10^3/uL (2.0-7.7); Basophil# 0.05 X10^3/uL; Basophil% 0.6 % (0-1); Eosinophil# 0.27 X10^3/uL; Hematocrit 44.3 % (40-54); Hemoglobin 14.5 g/dL (13.0-16.5); Lymphocyte # 2.56 X10^3/ul (4.0); Lymphocyte % 28.6 % (19-41); Mean Corp Hgb Conc 32.7 g/dL (32-36); Mean Corpuscular Hgb 29.8 pg (27.0-32.0); Mean Corpuscular Volume 91.2 fL (80-94); Monocyte# 0.86 X10^3/uL; Monocyte% 9.6 % (0-10); NRBC Flagged by Analyzer 0 % (0-5); Neutrophil # 5.18 X10^3/uL (2.7-7.7); Neutrophil % 57.9 % (47-70); Platelet Count 308 K/mm3 (150-450); RBC Distribution Width CV 13.6 % (11.6-14.6); RBC Distribution Width SD 45.1 fl (35.1-43.9); Red Blood Count 4.86 M/mm3 (4.6-6.2)
[2020-05-10 15:55] LABS: Vitamin D,25 Hydroxy 26.5 ng/mL
[2020-05-10 16:05] LABS: AST(SGOT) 18 U/L (15-37); Alanine Aminotransfer ALT/SGPT 36 U/L (16-61); Albumin, Serum 3.8 g/dL (3.2-5.0); Alkaline Phosphatase 102 U/L (45-117); Anion Gap 6 (5-15); BUN 27 mg/dL (7-18); BUN/Creat Ratio 13.2 RATIO (10-20); Calcium,Total 9.1 mg/dL (8.5-10.1); Chloride 101 mmol/L (98-107); Creatinine, Serum 2.04 mg/dL (0.70-1.30); EST Glomerular Filtration Rate 34 mL/min (>60); Est Glom Filt Rate - Afr Amer 41 mL/min (>60); Globulin 3.7 g/dL (2.2-4.2); Glucose 202 mg/dL (74-106); PSA,Total - Annual Screen 0.91 ng/mL (0.00-4.00); Potassium 5.3 mmol/L (3.5-5.1); Protein, Total 7.5 g/dL (6.4-8.2); Sodium Level 136 mmol/L (136-145); Thyroid Stim Hormone (TSH) 1.67 uIU/mL (0.358-3.74)
== END | disposition home or self-care (01) ==
LOC: POLAB3 14:08
PROVIDERS: PCP Family Medicine Geriatric Medicine; Visit Provider Family Medicine Geriatric Medicine
DX: E11.9 Type 2 diabetes mellitus without complications (principal); E55.9 Vitamin D deficiency, unspecified; F52.8 Other sexual dysfunction not due to a substance or known physiological condition; I10 Essential (primary) hypertension
CPT/HCPCS: 36415; 80053; 82306; 84153; 84403; 84443; 85025; G0103

== ENCOUNTER → 2020-05-13 | Outpatient (CLI) | payer MEDICARE, OTHER, SELFPAY ==
[2020-05-13 14:19] LABS: Anion Gap 8 (5-15); BUN 29 mg/dL (7-18); BUN/Creat Ratio 14.5 RATIO (10-20); Calcium,Total 8.8 mg/dL (8.5-10.1); Chloride 101 mmol/L (98-107); EST Glomerular Filtration Rate 35 mL/min (>60); Est Glom Filt Rate - Afr Amer 42 mL/min (>60); Glucose 293 mg/dL (74-106); Potassium 4.1 mmol/L (3.5-5.1); Sodium Level 136 mmol/L (136-145)
== END | disposition home or self-care (01) ==
LOC: LAB 13:31
PROVIDERS: PCP Family Medicine Geriatric Medicine; Referring Provider Family Medicine Geriatric Medicine; Visit Provider Family Medicine Geriatric Medicine
DX: I10 Essential (primary) hypertension (principal)
CPT/HCPCS: 36415; 80048

== ENCOUNTER → 2020-05-24 | Outpatient (CLI) | payer MEDICARE, OTHER, SELFPAY ==
[2020-05-24 18:04] LABS: Absolute Lymphocyte Count 3.33 X10^3/uL (0.83-4.51); Absolute Neutrophil Count 6.5 X10^3/uL (2.0-7.7); Basophil# 0.06 X10^3/uL; Basophil% 0.5 % (0-1); Eosinophil# 0.23 X10^3/uL; Hematocrit 44.9 % (40-54); Hemoglobin 14.6 g/dL (13.0-16.5); Lymphocyte # 3.33 X10^3/ul (4.0); Lymphocyte % 28.8 % (19-41); Mean Corp Hgb Conc 32.5 g/dL (32-36); Mean Corpuscular Hgb 29.9 pg (27.0-32.0); Mean Corpuscular Volume 91.8 fL (80-94); Mean Platelet Vol. 9.4 fl (6.2-12.0); Monocyte# 1.42 X10^3/uL; Monocyte% 12.3 % (0-10); NRBC Flagged by Analyzer 0 % (0-5); Neutrophil # 6.49 X10^3/uL (2.7-7.7); Neutrophil % 56.2 % (47-70); Platelet Count 341 K/mm3 (150-450); RBC Distribution Width CV 13.2 % (11.6-14.6); RBC Distribution Width SD 44.6 fl (35.1-43.9); Red Blood Count 4.89 M/mm3 (4.6-6.2); White Blood Count 11.6 K/mm3 (4.4-11.0)
[2020-05-24 19:00] LABS: ALB/GLOB Ratio 0.8 RATIO (0.9-2.4); AST(SGOT) 20 U/L (15-37); Alanine Aminotransfer ALT/SGPT 24 U/L (16-61); Albumin, Serum 3.7 g/dL (3.2-5.0); Alkaline Phosphatase 117 U/L (45-117); Amylase 144 U/L (25-115); Anion Gap 5 (5-15); BUN 28 mg/dL (7-18); BUN/Creat Ratio 15.2 RATIO (10-20); Calcium,Total 9.5 mg/dL (8.5-10.1); Chloride 102 mmol/L (98-107); Creatinine, Serum 1.84 mg/dL (0.70-1.30); EST Glomerular Filtration Rate 39 mL/min (>60); Est Glom Filt Rate - Afr Amer 47 mL/min (>60); Globulin 4.6 g/dL (2.2-4.2); Glucose 76 mg/dL (74-106); Lipase 304 U/L (73-393); Protein, Total 8.3 g/dL (6.4-8.2); Sodium Level 136 mmol/L (136-145)
== END | disposition home or self-care (01) ==
PROVIDERS: PCP Family Medicine Geriatric Medicine; Referring Provider Family Medicine Geriatric Medicine; Visit Provider Family Medicine Geriatric Medicine
DX: N18.3 Chronic kidney disease, stage 3 (moderate) (principal)
CPT/HCPCS: 36415; 80053; 82150; 83690; 84443; 85025; 87086

== ENCOUNTER → 2020-05-27 | Outpatient (CLI) | payer MEDICARE, OTHER, SELFPAY ==
--- NOTE | 2020-05-27 13:44 | CT_ITS ---
STUDY: CT LUMBAR SPINE WITHOUT CONTRAST REASON FOR EXAM: Male, 75 years old. LOW BACK and sacral pain. Hx of prostate cancer with prostatectomy. No heart, lung, stroke or sz RADIATION DOSAGE (If Supplied By Facility): CTDIvol = ( 31.38 ) mGy, DLP = ( 1092.30 ) mGycm TECHNIQUE: The patient was scanned in a multi detector CT scanner. High resolution transaxial imaging was performed. Images were obtained from L1 to L5. Sagittal and coronal images were reconstructed. Individualized dose optimization techniques were used for this CT. COMPARISON: None FINDINGS: Normal lumbar lordosis. There is no substantial scoliosis. Normal vertebrae of the lumbar spine. L1-2: Normal endplates. Normal disc height and morphology. Normal bilateral facet joints. Normal central canal and bilateral lateral recesses. Normal bilateral intervertebral neural foramina. L2-3: Normal endplates. Normal disc height and morphology. Normal bilateral facet joints. Normal central canal and bilateral lateral recesses. Normal bilateral intervertebral neural foramina. L3-4: Bulging annulus with mild central canal stenosis. L4-5: Bulging annulus and bilateral facet hypertrophy with moderate central canal and bilateral foraminal stenoses. L5-S1: Disc osteophyte complex with moderate left foraminal stenosis. Normal visualized paraspinous soft tissue structures. 10 mm sclerotic focus in the left ilium could be related to a blastic metastatic lesion. Vascular calcifications. Left sided hydroureteronephrosis. CT/Spine Lumbar without Contrast IMPRESSION: Multilevel degenerative disease as described. Moderate foraminal stenoses are present bilaterally at L4-5 and on the left at L5-S1. 10 mm sclerotic focus in the left ilium could be related to a blastic metastatic lesion. Left sided hydroureteronephrosis. Electronically Signed: Radames Grijalva MD at 21:25 EDT Tel , Service support ,
--- NOTE | 2020-05-27 13:45 | US_ITS ---
STUDY: SUPERFICIAL ULTRASOUND - RIGHT LOWER BACK REASON FOR EXAM: Male, 75 years old. Dx:lipoma, soft tissue lump x 30 years TECHNIQUE: A superficial ultrasound was performed with real-time and static whiting-scale imaging. COMPARISON: None. FINDINGS: Multiple ultrasound images of the right lower back soft tissues were obtained in the region of palpable lump. No masses or fluid collections are seen. US/Ext Non Vasc Limited/Soft Tiss IMPRESSION: No masses or fluid collections are detected by ultrasound in the region of interest. Electronically Signed: Radames Grijalva MD at 19:35 EDT Tel , Service support ,
== END | disposition home or self-care (01) ==
LOC: US 13:42
PROVIDERS: PCP Family Medicine Geriatric Medicine; Referring Provider Family Medicine Geriatric Medicine; Visit Provider Family Medicine Geriatric Medicine
DX: M54.5 Low back pain (principal); D17.9 Benign lipomatous neoplasm, unspecified
CPT/HCPCS: 72131; 76882

== ENCOUNTER → 2020-05-30 | Outpatient (CLI) | payer MEDICARE, OTHER, SELFPAY ==
[2020-05-30 15:11] LABS: Amylase 154 U/L (25-115); Anion Gap 7 (5-15); BUN 32 mg/dL (7-18); BUN/Creat Ratio 15.3 RATIO (10-20); Calcium,Total 8.9 mg/dL (8.5-10.1); Chloride 101 mmol/L (98-107); Creatinine, Serum 2.09 mg/dL (0.70-1.30); EST Glomerular Filtration Rate 33 mL/min (>60); Est Glom Filt Rate - Afr Amer 40 mL/min (>60); Glucose 296 mg/dL (74-106); Potassium 4.8 mmol/L (3.5-5.1); Sodium Level 135 mmol/L (136-145)
== END | disposition home or self-care (01) ==
LOC: POLAB3 13:34
PROVIDERS: PCP Family Medicine Geriatric Medicine; Visit Provider Family Medicine Geriatric Medicine
DX: R94.4 Abnormal results of kidney function studies (principal)
CPT/HCPCS: 36415; 80048; 82150

== ENCOUNTER → 2020-06-06 | Outpatient (CLI) | payer MEDICARE, OTHER, SELFPAY ==
--- NOTE | 2020-06-06 09:55 | NM_ITS ---
CLINICAL: 75-year-old male with reported history of carcinoma of the prostate with elevation of the serum PSA level. WHOLE BODY 99m Tc MDP RADIONUCLIDE BONE SCINTIGRAPHY COMPARISON: Previous whole body bone scintigraphy study dated 08/19/2013 FINDINGS: Following the intravenous administration of 25.6 mCi of 99m Tc MDP, whole body bone images reveal: 1. Intense increased radiopharmaceutical concentration is newly identified in the left acetabulum-inferior pubic ramus, left ischium, right anterior iliac wing, left sacroiliac joint. 2. Facilitated tracer uptake is defined in the dorsal lateral compartment of the right ankle, acromioclavicular compartments of both shoulders, mid cervical spine posteriorly on the right. 3. The remaining skeletal structures are scintigraphically unremarkable with right-left renal images and urinary bladder activity identified. The left kidney demonstrates an overall increase in tracer distribution. NM/Bone Scan Whole Body IMPRESSION: 1. The increase in radiopharmaceutical distribution currently identified in the left acetabulum, left inferior pubic ramus, left posterior ischium, right anterior iliac wing and left sacroiliac joint is most consistent with osteoblastic turnover attributed to skeletal metastatic disease. Plain film radiography correlation may be of benefit. 2. Degenerative arthritis is defined in the right ankle, bilateral shoulders, cervical spine. 3. Overall compared to the previous whole body bone scintigraphy study dated 08/19/2013, there is apparent interim development of defined skeletal metastatic disease. Electronically Signed: Art Cuevas DO at 23:01 EDT Tel , Service support ,
== END | disposition home or self-care (01) ==
LOC: NM 09:54
PROVIDERS: PCP Family Medicine Geriatric Medicine; Referring Provider Family Medicine Geriatric Medicine; Visit Provider Family Medicine Geriatric Medicine
DX: C76.51 Malignant neoplasm of right lower limb (principal)
CPT/HCPCS: 78306

== ENCOUNTER → 2020-06-14 16:27 | Outpatient (CLI) | payer MEDICARE, OTHER, SELFPAY ==
[2020-06-14 17:29] LABS: Anion Gap 4 (5-15); BUN 33 mg/dL (7-18); BUN/Creat Ratio 15.3 RATIO (10-20); Calcium,Total 9.2 mg/dL (8.5-10.1); Chloride 109 mmol/L (98-107); Creatinine, Serum 2.15 mg/dL (0.70-1.30); EST Glomerular Filtration Rate 32 mL/min (>60); Est Glom Filt Rate - Afr Amer 39 mL/min (>60); Glucose 60 mg/dL (74-106); Potassium 4.4 mmol/L (3.5-5.1); Sodium Level 141 mmol/L (136-145)
== END ==
PROVIDERS: PCP Family Medicine Geriatric Medicine; Visit Provider Family Medicine Geriatric Medicine
DX: E87.5 Hyperkalemia (principal)
CPT/HCPCS: 36415; 80048

== ENCOUNTER → 2020-06-17 | Outpatient (CLI) | payer MEDICARE, OTHER, SELFPAY ==
--- NOTE | 2020-06-17 07:45 | MRI_ITS ---
STUDY: MRI BILATERAL HIPS T PELVIS REASON FOR EXAM: Prostate carcinoma, left back/hip pain, status post prostatectomy, evaluate for osseous metastatic disease. TECHNIQUE: Standardized fat and water weighted pulse sequences were obtained in all 3 orthogonal planes. COMPARISON: Bone scan 06/06/2020. FINDINGS: RIGHT HIP Normal hip joint without articular joint space narrowing. Normal right acetabulum. Normal right labrum. Normal right femoral head. Normal right femoral neck and intratrochanteric region. Normal right gluteus minimus, medius and iliopsoas tendons and distal insertions. Normal right superior and inferior pubic rami. Normal right pubic symphysis. Normal right ischial tuberosity. Normal origin of the right hamstring tendons. Normal visualized right iliac wing, sacroiliac joint, and sacral ala. There is a soft tissue mass at the posterior aspect of the urinary bladder (T2 sagittal images 23-26; T2 axial images 24-26) measuring 3.8 cm in length and approximately 3.1 cm in transverse dimension. LEFT HIP Normal left hip joint without articular joint space narrowing. Normal left acetabulum. Normal left labrum. Normal left femoral head. Normal left femoral neck and intratrochanteric region. Normal left gluteus minimus, medius and iliopsoas tendons and distal insertions. There is bone marrow replacement of the left inferior pubic ramus and left ischial tuberosity (T1 axial series 31-34; inversion recovery coronal images 9-12) consistent with metastatic disease. Normal origin of the left hamstring tendons. There is a lesion in the left iliac wing adjacent to the sacroiliac joint measuring 1.2 cm in length (T1 coronal images 7, 8; inversion recovery coronal images 7, 8) consistent with metastatic disease. MRI/Pelvis (Routine) IMPRESSION: Metastatic disease involving the left inferior pubic ramus, left ischial tuberosity and left ilium. Soft tissue mass at the posterior aspect of the urinary bladder. Electronically Signed: Jayesh Craig MD at 9:11 EDT Tel , Service support ,
== END | disposition home or self-care (01) ==
LOC: MRI 07:10
PROVIDERS: PCP Family Medicine Geriatric Medicine; Referring Provider Radiology Radiation Oncology; Visit Provider Radiology Radiation Oncology
DX: C79.51 Secondary malignant neoplasm of bone (principal); Z85.46 Personal history of malignant neoplasm of prostate; Z79.51 Long term (current) use of inhaled steroids
CPT/HCPCS: 72195

== ENCOUNTER → 2020-07-12 | Outpatient (CLI) | payer MEDICARE, OTHER, SELFPAY ==
[2020-07-12 12:25] LABS: Absolute Lymphocyte Count 2.09 X10^3/uL (0.83-4.51); Absolute Neutrophil Count 4.6 X10^3/uL (2.0-7.7); Basophil# 0.05 X10^3/uL; Basophil% 0.7 % (0-1); Eosinophil# 0.22 X10^3/uL; Eosinophils% 2.9 % (0-5); Hematocrit 41.3 % (40-54); Hemoglobin 13.7 g/dL (13.0-16.5); Lymphocyte # 2.09 X10^3/ul (4.0); Lymphocyte % 27.3 % (19-41); Mean Corp Hgb Conc 33.2 g/dL (32-36); Mean Corpuscular Hgb 29.8 pg (27.0-32.0); Mean Platelet Vol. 10.2 fl (6.2-12.0); Monocyte# 0.69 X10^3/uL; NRBC Flagged by Analyzer 0 % (0-5); Neutrophil # 4.57 X10^3/uL (2.7-7.7); Neutrophil % 59.6 % (47-70); Platelet Count 316 K/mm3 (150-450); RBC Distribution Width CV 13.4 % (11.6-14.6); RBC Distribution Width SD 43.8 fl (35.1-43.9); Red Blood Count 4.59 M/mm3 (4.6-6.2); White Blood Count 7.7 K/mm3 (4.4-11.0)
[2020-07-12 12:36] LABS: Creatinine, Serum 2.29 mg/dL (0.70-1.30); EST Glomerular Filtration Rate 30 mL/min (>60); Est Glom Filt Rate - Afr Amer 36 mL/min (>60)
== END | disposition home or self-care (01) ==
LOC: BIMLAB 10:40
PROVIDERS: PCP Family Medicine Geriatric Medicine; Visit Provider Radiology Radiation Oncology
DX: Z01.818 Encounter for other preprocedural examination (principal); C61 Malignant neoplasm of prostate
CPT/HCPCS: 36415; 82565; 85025

== ENCOUNTER → 2020-07-13 | Outpatient (CLI) | payer MEDICARE, OTHER, SELFPAY ==
--- NOTE | 2020-07-13 10:26 | CT_ITS ---
STUDY: CT PELVIS WITHOUT CONTRAST REASON FOR EXAM: Male, 75 years old. Prostate cancer radiation treatment planning. Prior prostatectomy, diabetes. RADIATION DOSAGE (If Supplied By Facility): CTDIvol = ( 24.30 ) mGy, DLP = ( 839.35 ) mGycm TECHNIQUE: Transaxial imaging of the pelvis was performed with oral contrast, and without intravenous administration of contrast material. Individualized dose optimization techniques were used for this CT. COMPARISON: None. FINDINGS: Asymmetrical enlargement of the prostate. It measures 3.6 cm x 4.2 cm. This is more prominent on the left side with involvement of the base of the bladder on the left side. There is diffuse bladder wall thickening more prominent along its left lateral wall. Calcifications are seen within the prostate. Metallic radiation seeds are seen along the posterior left side of the prostate. Normal visualized small intestine. There are multiple colonic diverticula of the sigmoid colon consistent with chronic diverticulosis. There is no pelvic fluid. There is no pelvic mass lesion or lymphadenopathy. There is diffuse atherosclerotic calcification of the pelvic arteries. Normal abdominal wall. Sclerotic changes are seen along the left inferior pubic ramus extending into the posterior aspect of the left acetabulum. There is a 1.2 cm sclerotic focus along the medial aspect of the left iliac wing adjacent to the left sacroiliac joint. CT/CT Pelvis w/o Cont/Therapy IMPRESSION: Irregular enlargement of the prostate as described with involvement of the left side of the bladder and diffuse bladder wall thickening worse on the left side. Sclerosis of the inferior pubic ramus on the left side as well as focal sclerotic focus in the medial aspect of the left ilium at the level of the sacroiliac joint. Electronically Signed: Bartolome Berrios, at 14:48 EDT , Service support ,
== END | disposition home or self-care (01) ==
PROVIDERS: PCP Family Medicine Geriatric Medicine; Referring Provider Radiology Radiation Oncology; Visit Provider Radiology Radiation Oncology
DX: C61 Malignant neoplasm of prostate (principal)
CPT/HCPCS: 51600; 72192; Q9965

== ENCOUNTER 2020-08-03 10:00 | Day surgery (SDC) | payer MEDICARE, OTHER, SELFPAY ==
--- NOTE | 2020-07-27 16:09 | EKG12_ITS ---
Test Reason : PRE OP Blood Pressure : / mmHG Vent. Rate : 077 BPM Atrial Rate : 077 BPM P-R Int : 164 ms QRS Dur : 086 ms QT Int : 386 ms P-R-T Axes : 047 039 052 degrees QTc Int : 436 ms Normal sinus rhythm with sinus arrhythmia Normal ECG Confirmed by ELEN PEREA, MARIO ([id number]), film editor AUSTIN TURNER ([id number]) on 08/04/2020 8:32:08 AM Referred By: Tani Grey Confirmed By:CHRISTIE MYRICK MD
--- NOTE | 2020-08-03 | IMM_PTH ---
PATIENT: RENATA SOUZA [place] [facility] [place][id number] AGE/SX: 75/M ROOM: RE08/03/[address]: Dr. Tani Grey MD : 1945 BED: DIS: 08/03/2020 SPEC #: [id number] RECD: 08/05/20 12:06 STATUS: ANNAMARIA REQ #: [id number] CORAL: 08/03/20 00:[address]: Tani Grey DEPT: IMMUNOHISTOCHEMISTRY RECD BY: Estelle Hand ENTERED: 08/05/20 12:07 SP TYPE: IMMUNO OTHR DR: Dr. Zack Vergara MD Tissues: Pelvis, NOS Procedures: RCC (add) NAPSIN A (add) CK20 (add) CK5-6 (add) CK7 (add) CK8 (add) HEP PAR (add) TTF1 (add) Pankeratin (initial) P40 (add) PSAP (add) PHYSICIAN & [address] [address] SPECIMEN INFORMATION: Tissue Source: Pelvic mass Clinical Info: Recurrent prostate cancer Specimen Number: [id number] CPT code: 47078, 86623 x10 METHODOLOGY: Deparaffinized sections of prefer/formalin-fixed tissue or PAP/DQ stained slides are incubated with monoclonal/polyclonal antibodies/oligonucleotide probes. Localization is made via biotin free immunoperoxidase method. Appropriate controls are performed and reacted as expected. Results on target cell population are indicated in the following table: RESULTS: ANTIBODY / CLONE RESULT AE1-3 (AE1/AE3/PCK26) positive CK7 (OV-TL12/30) positive CK8 (11fzpeC52) positive CK20 (KS20.8) positive, focal TTF-1 (8G7G3/1) negative Napsin A (Rabbit Polyclonal) negative HepPar (OCh1E5) negative RCC (PN-15) negative PSAP (PASE/4LJ) positive, focal, dim CK5-6 (D5 & 1684) positive, rare P40 (BC28) negative These tests were developed and their performance characteristics determined by [facility]. They may not have been cleared or approved by the U.S. Food and Drug Administration. The FDA has determined that such clearance or approval is not necessary. The above immunohistochemical/dualISH markers are ordered and reviewed by the Pathologist. INTERPRETATION: Pelvic mass, core biopsy: Metastatic adenocarcinoma. See comment. AM:braeden 08/08/20 Comment: A prostatic primary is likely.
[2020-08-03 10:17] VITALS: BP 148/80; PULSE 87; RESP 16; TEMP 36.3; O2SAT 99; BMI 25.9
[2020-08-03] MEDS: Lactated Ringers 1,000 ML 100 ML IV ×2 (10:38→14:04)
[2020-08-03 10:45] LABS: Bedside Glucose 249 mg/dL (70-110)
[2020-08-03] MEDS: Insulin Lispro 100 UNIT/ML INSULN.PEN SC (11:27)
--- NOTE | 2020-08-03 11:55 | MASS_PTH ---
PATIENT: RENATA SOUZA LOC: [facility] – [place] U#:[id number] AGE/SX: 75/M ROOM: RE08/03/[address]: Dr. Tani Grey MD : 1945 BED: DIS: 08/03/2020 SPEC #: [id number] RECD: 08/04/20 07:39 STATUS: ANNAMARIA REChele #: [id number] CORAL: 08/03/20 11:[address]: Tani Grey DEPT: SURGICAL PATHOLOGY RECD BY: José Miguel Hernandez ENTERED: 08/04/20 09:16 SP TYPE: Mass OTHR DR: Dr. Zack Vergara MD Tissues: Pelvis, NOS Procedures: Surgery Specimen Level IV HEADER OPERATION: Cysto, transrectal biopsy of mass finger guided PRE-OP DIAGNOSIS: Recurrent prostate cancer TISSUE SUBMITTED: Biopsy of pelvic mass MICROSCOPIC DIAGNOSIS Pelvic mass, core biopsy: Metastatic non-small cell carcinoma. See comment. SJ:braeden 08/05/20 COMMENT Immunohistochemistry ([id number]) is consistent with a metastatic prostate carcinoma. Please make reference to previous specimen ([id number]), radical prostatectomy with diagnosis of prostatic adenocarcinoma. Case has been reviewed in consultation with Dr. Lee who concurs with the above diagnosis. IDC:[email or web address] MICROSCOPIC DESCRIPTION Slides are reviewed. GROSS DESCRIPTION Received in fixative is one container labeled with the patient's name and designated biopsy of pelvic mass. The specimen consists of multiple elongated fragments of ga soft tissue that in aggregate measure 2 x 0.2 x 0.1 cm. The specimen is totally submitted in one cassette. / Ej 08/04/20 TC:0 CPT: 78877
--- NOTE | 2020-08-03 13:03 | DCINST_ITS ---
Discharge Diet: No Restrictions Discharge Activity: Return to Normal Activity, May Not Drive - for 2 days. Instructions: Ureteral Stents Allergies/Adverse Reactions: Allergies Penicillins Allergy (Verified 07/27/20 08:12) Rash tadalafil [From Cialis] Adverse Reaction (Verified 07/27/20 08:14) PT UNSURE OF REACTION HEADACHE,BLURRY VISION Medications to take at Discharge Insulin Detemir [Levemir] 60 units SC DAILY 10/13/13 Lisinopril 2.5 mg PO DAILY 10/13/13 Multivitamins,Therapeutic [Multivitamin] 1 tablet PO DAILY 10/13/13 Glimepiride [Amaryl] 4 mg PO BID 05/02/19 Insulin Detemir [Levemir (BKC)] 63 units SUBCUT QHS 05/02/19 Rosuvastatin Calcium [Crestor] 20 mg PO QHS 05/02/19 Ascorbic Acid [Vitamin C] 500 mg PO BID 07/27/20 Calcium Carbonate/Vitamin D3 [Calcium 500 mg-Vit D3 5 Mcg Tb] 1 ea PO DAILY 07/27/20 Enzalutamide [Xtandi] 160 mg PO DAILY 07/27/20 Glutamine [Endari] 5 gm PO DAILY 07/27/20 Leuprolide Acetate [Eligard] 7.5 mg SQ X1 07/27/20 Semaglutide [Ozempic] 1 mg SQ QWEEK 07/27/20 Primary Care Physician: Zack Vergara Chi, MD [Primary Care Provider] - Test Results: Test results from this visit will be discussed in further detail at your follow- up appointment, if applicable. Please Follow Up With: Tani Grey MD When: in 2 weeks, please call to make an appointment.
--- NOTE | 2020-08-03 13:04 | PCM.HP.STD ---
History of Present Illness Date of Admission: 08/03/20 Chief Complaint: Recurrent prostate cancer The patient is a 75 year old male with a history of prostate cancer underwent a radical prostatectomy about 10 years ago and suddenly the PSA has gone up a little bit on CAT scan he has a mass prostate rectal area bone scan was positive with metastatic disease he was started on salvage radiation therapy and he started on hormone deprivation therapy plus Xtandi. Today working to place a stent on the left side because he is got some hydronephrosis and obstruction of the left kidney there also could do a transrectal prostate biopsy of the mass next to the bladder. Past Medical History Allergies Penicillins Allergy (Verified 07/27/20 08:12) Rash tadalafil [From Cialis] Adverse Reaction (Verified 07/27/20 08:14) PT UNSURE OF REACTION HEADACHE,BLURRY VISION Home Medications: Ambulatory Orders Medication Instructions Recorded Insulin Detemir [Levemir] 60 units SC DAILY 10/13/13 Lisinopril 2.5 mg PO DAILY 10/13/13 Multivitamins,Therapeutic 1 tablet PO DAILY 10/13/13 [Multivitamin] Glimepiride [Amaryl] 4 mg PO BID 05/02/19 Insulin Detemir [Levemir (BKC)] 63 units SUBCUT QHS 05/02/19 Rosuvastatin Calcium [Crestor] 20 mg PO QHS 05/02/19 Ascorbic Acid [Vitamin C] 500 mg PO BID 07/27/20 Calcium Carbonate/Vitamin D3 1 ea PO DAILY 07/27/20 [Calcium 500 mg-Vit D3 5 Mcg Tb] Enzalutamide [Xtandi] 160 mg PO DAILY 07/27/20 Glutamine [Endari] 5 gm PO DAILY 07/27/20 Leuprolide Acetate [Eligard] 7.5 mg SQ X1 07/27/20 Semaglutide [Ozempic] 1 mg SQ QWEEK 07/27/20 Surgical History: no surgical history Smoking Status: Never smoker Review of Systems Constitutional: Denies: Chills, Fever, Weight Change HEENT: Denies: Head Aches, Sinus Congestion, Sinus Drainage Cardiovascular: Denies: Chest Pain, Palpitations Respiratory: Denies: Cough, Shortness of breath at rest, Sputum production Gastrointestinal: Denies: Abdominal Pain, Nausea, Vomiting Genitourinary: Denies: Dysuria Musculoskeletal: Denies: Joint Pain, Joint Tenderness Skin: Denies: Rash, Wounds Neurological: Denies: Numbness, Tingling, Focal weakness Psychiatric: Denies: Anxiety, Depression, Homicidal Ideations, Suicidal Ideations Hematologic/ Lymphatic: Denies: Easy Bruising, Easy Bleeding VTE Information - Inpt Only VTE Present on Admission: No - Physical Exam Vitals/I&O's: Vital Signs Temp Pulse Resp BP Pulse Ox 97.3 F L 87 16 148/80 H 99 08/03/20 10:17 08/03/20 10:17 08/03/20 10:17 08/03/20 10:17 08/03/20 10:17 Oxygen Delivery Method Room Air Weight: 86.6 kg Body Mass Index (BMI) 25.9 Finger Stick Blood Glucose 335 General: Alert, Oriented x3, Cooperative HEENT: Atraumatic, PERRLA, EOMI, Normocephalic Neck: Supple, No JVD, Negative Carotid Bruits Lungs: Clear to auscultation, Normal air movement Cardiovascular: Regular rate, No murmurs Abdomen: Bowel Sounds Present, Soft, Non Tender Extremities: No edema, Capillary Refill Less than 3 Seconds Skin: No rashes, No breakdown Musculoskeletal: No Tenderness to Palpation of Joints or Extremities Neurological: Cranial nerves II-XII grossly intact Psych/Mental Status: Normal Affect, Appropriate Laboratory Results 08/03/20 10:33: POC Glucose 249 H Current Medications Lactated Ringer's () 1,000 mls @ 100 mls/hr IV .Q10H HAILE Last Admin: 08/03/20 10:38 Dose: 100 mls/hr Documented by: Assessment/Plan 75-year-old male with recurrent prostate cancer positive metastatic disease positive bone scan he is undergoing salvage radiation therapy right now we are going to biopsy a mass in the pelvis to confirm the diagnosis of prostate cancer he also has hydronephrosis of the left side we will place a stent to relieve obstruction of the left kidney. We also look in the bladder and check the bladder.
[2020-08-03] MEDS: Cefazolin 2 GM in 0.9% Normal Saline 100 ML IV (13:15)
--- NOTE | 2020-08-03 13:37 | OP.PCM_ITS ---
Report of Operation Date of Procedure: 08/03/20 Pre-Operative Diagnosis: Recurrent prostate cancer Post-Operative Diagnosis: Same Surgery/Procedure Performed:: Cystoscopy and left retrograde pyelogram interpretation fluoroscopic images and left stent placement. Transrectal finger guided biopsy of pelvic mass next the bladder Description of Surgical Findings:: 75-year-old male who underwent a radical prostatectomy for prostate cancer long time ago on follow-up he was found to have a rising PSA bone scan was done that demonstrated positive bony metastasis he had a CAT scan done that demonstrated left hydronephrosis with signs of obstruction of the left distal ureter and a mass in the pelvis next of the bladder compressing the ureters. Today we plan to place a stent on the left side to alleviate the obstruction and also do a transrectal finger guided biopsy of this pelvic mass to confirm the diagnosis of suspected recurrent prostate cancer. Patient was taken back to the operating room after smooth induction of general anesthesia he was placed in dorsolithotomy position, the penis and testicles are prepped and draped in usual sterile fashion went into the bladder with a 21 Maltese rigid cystourethroscope, once in the bladder the trigone had some trigonitis identified the left and right ureteral orifice the left ureteral orifice was cannulated with a Glidewire retrograde was performed to see contrast going up there is a column of fluid within the ureter consistent with obstruction when the catheter was removed there was no drainage of the fluid within the left ureter at this point I placed a stent on the left side because of the obstruction over the wire place a stent 6 Maltese by 26 and the bladder was drained I then double gloved and put a finger guide through the the glove and did a rectal exam could palpate a firm mass in the left area of the of the pelvis that was below the bladder hard firm mass biopsies of the mass were taken finger guided biopsies using a biopsy gun 21- gauge after 5 or 6 biopsies were completed since sufficient samples were taken then we ended the procedure the biopsies were sent off as a specimen stent was in place bladder was drained anesthetic was versed and taken back to PACU in go od condition we will have him see us in the office in about 2 weeks to review the biopsies. Type of Anesthesia:: General Drains: stent left side 6 x 26 cm - Admit VTE Documentation VTE Present on Admission: No VTE Mechan Device Prophylaxis: SCD's
[2020-08-03 13:47] VITALS: BP 141/78; BP 148/80; PULSE 76; RESP 16; TEMP 36.3; O2SAT 95
[2020-08-03 14:00] VITALS: BP 135/74; BP 148/80; PULSE 74; RESP 16; O2SAT 96
[2020-08-03 14:15] VITALS: BP 141/74; BP 148/80; PULSE 72; RESP 16; TEMP 36.6; O2SAT 97
[2020-08-03 14:16] LABS: Bedside Glucose 123 mg/dL (70-110)
[2020-08-03] MEDS: oxyCODONE 5 MG Tablet PO (15:05)
[2020-08-03 16:25] VITALS: BP 135/66; BP 148/80; PULSE 84; RESP 16; TEMP 36.6; O2SAT 98
== END 2020-08-03 16:46 | disposition home or self-care (01) ==
LOC: SDC 10:00 → AC 10:01
PROVIDERS: Anesthesiology; PCP Family Medicine Geriatric Medicine; Referring Provider Urology; Visit Provider Urology
PROC: (CPT 49180; principal; 2020-08-03 11:45)
DX: C61 Malignant neoplasm of prostate (principal); C79.89 Secondary malignant neoplasm of other specified sites; N13.5 Crossing vessel and stricture of ureter without hydronephrosis; E78.00 Pure hypercholesterolemia, unspecified; E11.9 Type 2 diabetes mellitus without complications; I10 Essential (primary) hypertension; Z11.59 Encounter for screening for other viral diseases; Z79.4 Long term (current) use of insulin; Z79.899 Other long term (current) drug therapy
CPT/HCPCS: 00910; 49180; 52005; 52332; 76000; 82962; 87635; 88305; 88341; 88342; 93005; C9803; J7120; C1769; C2617; J2405; U0003

== ENCOUNTER → 2020-08-12 | Outpatient (CLI) | payer MEDICARE, OTHER, SELFPAY ==
[2020-08-03 10:17] VITALS: BMI 25.9
[2020-08-12 15:21] LABS: Absolute Lymphocyte Count 0.65 X10^3/uL (0.83-4.51); Basophil# 0.03 X10^3/uL; Basophil% 0.7 % (0-1); Eosinophil# 0.22 X10^3/uL; Eosinophils% 4.9 % (0-5); Hematocrit 37.2 % (40-54); Hemoglobin 12.5 g/dL (13.0-16.5); Lymphocyte # 0.65 X10^3/ul (4.0); Lymphocyte % 14.4 % (19-41); Mean Corp Hgb Conc 33.6 g/dL (32-36); Mean Corpuscular Hgb 30.3 pg (27.0-32.0); Mean Corpuscular Volume 90.1 fL (80-94); Mean Platelet Vol. 9.2 fl (6.2-12.0); Monocyte# 0.58 X10^3/uL; Monocyte% 12.8 % (0-10); NRBC Flagged by Analyzer 0 % (0-5); Neutrophil # 3.01 X10^3/uL (2.7-7.7); Neutrophil % 66.5 % (47-70); Platelet Count 226 K/mm3 (150-450); RBC Distribution Width CV 14.6 % (11.6-14.6); RBC Distribution Width SD 46.5 fl (35.1-43.9); Red Blood Count 4.13 M/mm3 (4.6-6.2); White Blood Count 4.5 K/mm3 (4.4-11.0)
== END | disposition home or self-care (01) ==
LOC: BIMLAB 12:09
PROVIDERS: PCP Family Medicine Geriatric Medicine; Referring Provider Radiology Radiation Oncology; Visit Provider Radiology Radiation Oncology
DX: C61 Malignant neoplasm of prostate (principal)
CPT/HCPCS: 36415; 85025

== ENCOUNTER → 2020-08-18 | Outpatient (CLI) | payer MEDICARE, OTHER, SELFPAY ==
[2020-08-03 10:17] VITALS: BMI 25.9
[2020-08-18 15:35] LABS: EST Glomerular Filtration Rate 37 mL/min (>60); Est Glom Filt Rate - Afr Amer 45 mL/min (>60)
== END | disposition home or self-care (01) ==
LOC: BIMLAB 11:56
PROVIDERS: PCP Family Medicine Geriatric Medicine; Referring Provider Radiology Radiation Oncology; Visit Provider Radiology Radiation Oncology
DX: Z01.818 Encounter for other preprocedural examination (principal); C61 Malignant neoplasm of prostate
CPT/HCPCS: 36415; 82565

== ENCOUNTER → 2020-08-19 | Outpatient (CLI) | payer MEDICARE, OTHER, SELFPAY ==
[2020-08-03 10:17] VITALS: BMI 25.9
--- NOTE | 2020-08-19 11:29 | CT_ITS ---
STUDY: CT PELVIS WITHOUT CONTRAST REASON FOR EXAM: Male, 75 years old. PROSTATE CA- RADIATION PLANNING. . PROSTATECTOMY RADIATION DOSAGE (If Supplied By Facility): CTDIvol = ( 24.58 ) mGy, DLP = ( 1538.17 ) mGycm TECHNIQUE: Transaxial imaging of the pelvis was performed with oral contrast, and without intravenous administration of contrast material. Individualized dose optimization techniques were used for this CT. COMPARISON: 07/13/2020 FINDINGS: Normal urinary bladder. Left-sided ureteral stent. Normal visualized small intestine. Normal visualized colon. There is no pelvic fluid. There is no pelvic mass lesion or lymphadenopathy. Radiation seeds within the prostate gland. Normal visualized pelvic arteries. Normal abdominal wall. Sclerosis of the left ischium with a small sclerotic lesion of the left ilium at the sacroiliac joint consistent with blastic metastases. CT/CT Pelvis w/o Cont/Therapy IMPRESSION: Radiation seeds within the prostate gland with blastic metastases. Electronically Signed: Art Govea MD at 14:56 EDT Tel , Service support ,
== END | disposition home or self-care (01) ==
LOC: CT 11:28
PROVIDERS: PCP Family Medicine Geriatric Medicine; Referring Provider Radiology Radiation Oncology; Visit Provider Radiology Radiation Oncology
DX: C61 Malignant neoplasm of prostate (principal)
CPT/HCPCS: 51600; 72192

== ENCOUNTER → 2020-08-24 | Outpatient (CLI) | payer MEDICARE, OTHER, SELFPAY ==
[2020-08-03 10:17] VITALS: BMI 25.9
[2020-08-24 16:38] LABS: Absolute Lymphocyte Count 0.55 X10^3/uL (0.83-4.51); Absolute Neutrophil Count 3.9 X10^3/uL (2.0-7.7); Basophil# 0.03 X10^3/uL; Basophil% 0.6 % (0-1); Eosinophil# 0.22 X10^3/uL; Eosinophils% 4.1 % (0-5); Hematocrit 35.5 % (40-54); Hemoglobin 11.9 g/dL (13.0-16.5); Lymphocyte # 0.55 X10^3/ul (4.0); Lymphocyte % 10.2 % (19-41); Mean Corp Hgb Conc 33.5 g/dL (32-36); Mean Corpuscular Hgb 29.9 pg (27.0-32.0); Mean Corpuscular Volume 89.2 fL (80-94); Mean Platelet Vol. 9.4 fl (6.2-12.0); Monocyte# 0.71 X10^3/uL; Monocyte% 13.2 % (0-10); NRBC Flagged by Analyzer 0 % (0-5); Neutrophil # 3.85 X10^3/uL (2.7-7.7); Neutrophil % 71.3 % (47-70); POSITIVE DIFFERENTIAL YES; Platelet Count 277 K/mm3 (150-450); RBC Distribution Width CV 14.9 % (11.6-14.6); RBC Distribution Width SD 47.8 fl (35.1-43.9); Red Blood Count 3.98 M/mm3 (4.6-6.2); White Blood Count 5.4 K/mm3 (4.4-11.0)
[2020-08-24 16:53] LABS: Differential Indicated SCAN CRITERIA MET
[2020-08-24 17:01] LABS: Vitamin D,25 Hydroxy 39.6 ng/mL
[2020-08-24 17:06] LABS: ALB/GLOB Ratio 0.9 RATIO (0.9-2.4); AST(SGOT) 17 U/L (15-37); Alanine Aminotransfer ALT/SGPT 29 U/L (16-61); Albumin, Serum 3.3 g/dL (3.2-5.0); Alkaline Phosphatase 81 U/L (45-117); Anion Gap 9 (5-15); BUN 33 mg/dL (7-18); Calcium,Total 9.5 mg/dL (8.5-10.1); Chloride 106 mmol/L (98-107); Creatinine, Serum 1.65 mg/dL (0.70-1.30); EST Glomerular Filtration Rate 44 mL/min (>60); Est Glom Filt Rate - Afr Amer 53 mL/min (>60); Globulin 3.7 g/dL (2.2-4.2); Glucose 236 mg/dL (74-106); Potassium 4.6 mmol/L (3.5-5.1); Sodium Level 139 mmol/L (136-145); Thyroid Stim Hormone (TSH) 1.84 uIU/mL (0.358-3.74)
== END | disposition home or self-care (01) ==
LOC: POLAB3 13:31
PROVIDERS: PCP Family Medicine Geriatric Medicine; Visit Provider Family Medicine Geriatric Medicine
DX: E11.9 Type 2 diabetes mellitus without complications (principal); E55.9 Vitamin D deficiency, unspecified; I10 Essential (primary) hypertension; F52.8 Other sexual dysfunction not due to a substance or known physiological condition
CPT/HCPCS: 36415; 80053; 82306; 84403; 84443; 85025

== ENCOUNTER → 2020-09-05 12:12 | Outpatient (CLI) | payer MEDICARE, OTHER, SELFPAY ==
[2020-09-05 15:09] LABS: Absolute Lymphocyte Count 0.41 X10^3/uL (0.83-4.51); Basophil# 0.03 X10^3/uL; Basophil% 0.7 % (0-1); Eosinophil# 0.17 X10^3/uL; Hematocrit 35.3 % (40-54); Hemoglobin 11.6 g/dL (13.0-16.5); Lymphocyte # 0.41 X10^3/ul (4.0); Lymphocyte % 9.7 % (19-41); Mean Corp Hgb Conc 32.9 g/dL (32-36); Mean Corpuscular Hgb 30.2 pg (27.0-32.0); Mean Corpuscular Volume 91.9 fL (80-94); Mean Platelet Vol. 9.2 fl (6.2-12.0); Monocyte# 0.56 X10^3/uL; Monocyte% 13.3 % (0-10); NRBC Flagged by Analyzer 0 % (0-5); Neutrophil % 71.3 % (47-70); POSITIVE DIFFERENTIAL YES; Platelet Count 253 K/mm3 (150-450); RBC Distribution Width CV 15.3 % (11.6-14.6); RBC Distribution Width SD 50.7 fl (35.1-43.9); Red Blood Count 3.84 M/mm3 (4.6-6.2); White Blood Count 4.2 K/mm3 (4.4-11.0)
[2020-09-05 15:52] LABS: Anion Gap 6 (5-15); BUN 27 mg/dL (7-18); BUN/Creat Ratio 17.6 RATIO (10-20); Calcium,Total 9.3 mg/dL (8.5-10.1); Chloride 101 mmol/L (98-107); Creatinine, Serum 1.53 mg/dL (0.70-1.30); Differential Indicated SCAN CRITERIA MET; EST Glomerular Filtration Rate 48 mL/min (>60); Est Glom Filt Rate - Afr Amer 58 mL/min (>60); Glucose 261 mg/dL (74-106); PSA,Total- Diagnostic 0.03 ng/mL (0.0-4.0); Sodium Level 136 mmol/L (136-145)
[2020-09-05 16:04] LABS: Differential Comment SCANNED
[2020-09-06 14:52] LABS: Pathologist Review Reviewed
== END ==
PROVIDERS: Radiology Radiation Oncology; PCP Family Medicine Geriatric Medicine; Referring Provider Urology; Visit Provider Urology
DX: C61 Malignant neoplasm of prostate (principal); N13.5 Crossing vessel and stricture of ureter without hydronephrosis; R97.21 Rising PSA following treatment for malignant neoplasm of prostate
CPT/HCPCS: 36415; 80048; 84153; 85025

== ENCOUNTER → 2020-10-18 12:27 | Outpatient (CLI) | payer MEDICARE, OTHER, SELFPAY ==
[2020-10-18 15:33] LABS: Creatinine, Serum 1.63 mg/dL (0.70-1.30); EST Glomerular Filtration Rate 44 mL/min (>60); Est Glom Filt Rate - Afr Amer 54 mL/min (>60)
== END ==
PROVIDERS: PCP Family Medicine Geriatric Medicine; Referring Provider Radiology Radiation Oncology; Visit Provider Radiology Radiation Oncology
DX: N13.30 Unspecified hydronephrosis (principal); R94.4 Abnormal results of kidney function studies
CPT/HCPCS: 36415; 82565

== ENCOUNTER → 2020-11-08 13:16 | Outpatient (CLI) | payer MEDICARE, OTHER, SELFPAY ==
[2020-11-08 13:44] LABS: Absolute Lymphocyte Count 0.67 X10^3/uL (0.83-4.51); Absolute Neutrophil Count 4.1 X10^3/uL (2.0-7.7); Basophil# 0.05 X10^3/uL; Basophil% 0.9 % (0-1); Eosinophil# 0.25 X10^3/uL; Eosinophils% 4.4 % (0-5); Hematocrit 37.2 % (40-54); Hemoglobin 12.4 g/dL (13.0-16.5); Lymphocyte # 0.67 X10^3/ul (4.0); Lymphocyte % 11.9 % (19-41); Mean Corp Hgb Conc 33.3 g/dL (32-36); Mean Corpuscular Hgb 31.2 pg (27.0-32.0); Mean Corpuscular Volume 93.5 fL (80-94); Mean Platelet Vol. 9.1 fl (6.2-12.0); Monocyte# 0.58 X10^3/uL; Monocyte% 10.3 % (0-10); NRBC Flagged by Analyzer 0 % (0-5); Neutrophil # 4.07 X10^3/uL (2.7-7.7); Platelet Count 300 K/mm3 (150-450); RBC Distribution Width CV 12.7 % (11.6-14.6); RBC Distribution Width SD 43.8 fl (35.1-43.9); Red Blood Count 3.98 M/mm3 (4.6-6.2); White Blood Count 5.7 K/mm3 (4.4-11.0)
[2020-11-08 14:14] LABS: Vitamin D,25 Hydroxy 35.3 ng/mL
[2020-11-08 14:24] LABS: ALB/GLOB Ratio 0.9 RATIO (0.9-2.4); AST(SGOT) 10 U/L (15-37); Alanine Aminotransfer ALT/SGPT 16 U/L (16-61); Albumin, Serum 3.5 g/dL (3.2-5.0); Alkaline Phosphatase 84 U/L (45-117); Anion Gap 7 (5-15); BUN 27 mg/dL (7-18); BUN/Creat Ratio 17.6 RATIO (10-20); Calcium,Total 9.7 mg/dL (8.5-10.1); Chloride 105 mmol/L (98-107); Creatinine, Serum 1.53 mg/dL (0.70-1.30); EST Glomerular Filtration Rate 48 mL/min (>60); Est Glom Filt Rate - Afr Amer 58 mL/min (>60); Globulin 3.7 g/dL (2.2-4.2); Glucose 222 mg/dL (74-106); Potassium 4.5 mmol/L (3.5-5.1); Protein, Total 7.2 g/dL (6.4-8.2); Sodium Level 139 mmol/L (136-145)
== END ==
PROVIDERS: PCP Family Medicine Geriatric Medicine; Visit Provider Family Medicine Geriatric Medicine
DX: E11.9 Type 2 diabetes mellitus without complications (principal); E55.9 Vitamin D deficiency, unspecified; F52.8 Other sexual dysfunction not due to a substance or known physiological condition; I10 Essential (primary) hypertension
CPT/HCPCS: 36415; 80053; 82306; 84403; 84443; 85025

== ENCOUNTER 2020-11-16 07:48 | Day surgery (SDC) | payer MEDICARE, OTHER, SELFPAY ==
[2020-11-16] VITALS (7 sets, daily range): BP systolic 126–149; BP diastolic 70–84; PULSE 73–92; RESP 14–16; TEMP 36.1–36.7; O2SAT 96–100; BMI 26.3
[2020-11-16] MEDS: Lactated Ringers 1,000 ML 100 ML IV (08:35)
[2020-11-16] MEDS: Cefazolin 2 GM in 0.9% Normal Saline 100 ML IV (09:16)
--- NOTE | 2020-11-16 09:17 | PCM.HP.STD ---
Problem List (1) Ureteral obstruction, left Status: Acute (2) Prostate cancer Status: Acute (3) Prostate cancer metastatic to bone Status: Acute History of Present Illness Date of Admission: 11/16/20 Chief Complaint: Left ureter obstruction with a stent plan for stent change The patient is a 75 year old male who was found to have advanced prostate cancer with metastatic disease he has obstruction of the left kidney and he had a stent placed for this obstruction due to lymph nodes pressing on the ureter because of this working to proceed today with a change of the stent since the stents been under quite some time he started to have more pain in the back and the stent is needs to be changed. So again taken today for cystoscopy retrograde pyelogram and possible stent change possible removal of stent if there is good drainage of contrast on the left kidney. Past Medical History Allergies Penicillins Allergy (Verified 11/09/20 14:00) Rash tadalafil [From Cialis] Adverse Reaction (Verified 11/09/20 14:00) PT UNSURE OF REACTION HEADACHE,BLURRY VISION Home Medications: Ambulatory Orders Medication Instructions Recorded Insulin Detemir [Levemir] 60 units SC DAILY 10/13/13 Lisinopril 2.5 mg PO DAILY 10/13/13 Multivitamins,Therapeutic 1 tablet PO DAILY 10/13/13 [Multivitamin] Glimepiride [Amaryl] 4 mg PO BID 05/02/19 Insulin Detemir [Levemir (BKC)] 58 units SUBCUT QHS 05/02/19 Rosuvastatin Calcium [Crestor] 20 mg PO QHS 05/02/19 Ascorbic Acid [Vitamin C] 500 mg PO BID 07/27/20 Calcium Carbonate/Vitamin D3 1 ea PO DAILY 07/27/20 [Calcium 500 mg-Vit D3 5 Mcg Tb] Enzalutamide [Xtandi] 160 mg PO DAILY 07/27/20 Leuprolide Acetate [Eligard] 7.5 mg SQ X1 07/27/20 Semaglutide [Ozempic] 1 mg SQ QWEEK 07/27/20 Surgical History: no surgical history Smoking Status: Never smoker Review of Systems Constitutional: Denies: Chills, Fever, Weight Change HEENT: Denies: Head Aches, Sinus Congestion, Sinus Drainage Cardiovascular: Denies: Chest Pain, Palpitations Respiratory: Denies: Cough, Shortness of breath at rest, Sputum production Gastrointestinal: Denies: Abdominal Pain, Nausea, Vomiting Genitourinary: Denies: Dysuria Musculoskeletal: Denies: Joint Pain, Joint Tenderness Skin: Denies: Rash, Wounds Neurological: Denies: Numbness, Tingling, Focal weakness Psychiatric: Denies: Anxiety, Depression, Homicidal Ideations, Suicidal Ideations Hematologic/ Lymphatic: Denies: Easy Bruising, Easy Bleeding VTE Information - Inpt Only VTE Present on Admission: No - Physical Exam Vitals/I&O's: Vital Signs Temp Pulse Resp BP Pulse Ox 97.1 F L 80 14 136/73 H 98 11/16/20 08:31 11/16/20 08:31 11/16/20 08:31 11/16/20 08:31 11/16/20 08:31 Oxygen Delivery Method Room Air Weight: 88 kg Body Mass Index (BMI) 26.3 Finger Stick Blood Glucose 335 General: Alert, Oriented x3, Cooperative HEENT: Atraumatic, PERRLA, EOMI, Normocephalic Neck: Supple, No JVD, Negative Carotid Bruits Lungs: Clear to auscultation, Normal air movement Cardiovascular: Regular rate, No murmurs Abdomen: Bowel Sounds Present, Soft, Non Tender Extremities: No edema, Capillary Refill Less than 3 Seconds Skin: No rashes, No breakdown Musculoskeletal: No Tenderness to Palpation of Joints or Extremities Neurological: Cranial nerves II-XII grossly intact Psych/Mental Status: Normal Affect, Appropriate Microbiology Past 72 Hours 11/15/20 12:20 Interface Orders SARS-CoV-2 Antigen (Rapid) - Final Current Medications Lactated Ringer's () 1,000 mls @ 100 mls/hr IV .Q10H HAILE Last Admin: 11/16/20 08:35 Dose: 100 mls/hr Documented by: Assessment/Plan All Active Problems Ureteral obstruction, left (Acute) Prostate cancer (Acute) Prostate cancer metastatic to bone (Acute) Plan for cystoscopy left retrograde pyelogram and left stent change.
--- NOTE | 2020-11-16 09:19 | DCINST_ITS ---
Discharge Diet: Light diet - advance as tolerated Discharge Activity: Return to Normal Activity Call your doctor if you observe: Fever of 101 or Higher Suture Line Care: Avoid Pulling/Pushing, Avoid Pinching/Bending Allergies/Adverse Reactions: Allergies Penicillins Allergy (Verified 11/09/20 14:00) Rash tadalafil [From Cialis] Adverse Reaction (Verified 11/09/20 14:00) PT UNSURE OF REACTION HEADACHE,BLURRY VISION Medications to take at Discharge Insulin Detemir [Levemir] 60 units SC DAILY 10/13/13 Lisinopril 2.5 mg PO DAILY 10/13/13 Multivitamins,Therapeutic [Multivitamin] 1 tablet PO DAILY 10/13/13 Glimepiride [Amaryl] 4 mg PO BID 05/02/19 Insulin Detemir [Levemir (BKC)] 58 units SUBCUT QHS 05/02/19 Rosuvastatin Calcium [Crestor] 20 mg PO QHS 05/02/19 Ascorbic Acid [Vitamin C] 500 mg PO BID 07/27/20 Calcium Carbonate/Vitamin D3 [Calcium 500 mg-Vit D3 5 Mcg Tb] 1 ea PO DAILY 07/27/20 Enzalutamide [Xtandi] 160 mg PO DAILY 07/27/20 Leuprolide Acetate [Eligard] 7.5 mg SQ X1 07/27/20 Semaglutide [Ozempic] 1 mg SQ QWEEK 07/27/20 Ciprofloxacin [Cipro] 500 mg PO BID #6 tab 11/16/20 Hydrocodone Bitart/Apap 5-325 [[place] 5MG-325MG] 1 tablet PO Q4H PRN PRN 7 Days #14 tablet 11/16/20 Primary Care Physician: Zack Vergara Chi, MD [Primary Care Provider] - Test Results: Test results from this visit will be discussed in further detail at your follow- up appointment, if applicable. Please Follow Up With: Tani Grey MD When: Keep scheduled appointment
--- NOTE | 2020-11-16 09:38 | OP.PCM_ITS ---
Problem List (1) Ureteral obstruction, left Status: Acute (2) Prostate cancer Status: Acute (3) Prostate cancer metastatic to bone Status: Acute Report of Operation Date of Procedure: 11/16/20 Pre-Operative Diagnosis: Left ureteral obstruction and prostate cancer Post-Operative Diagnosis: The same Surgery/Procedure Performed:: Cystoscopy, left retrograde pyelogram, left stent placement, new stent Description of Surgical Findings:: Patient was taken back to the operating room after induction of general anesthesia, the patient was placed in dorsolithotomy position. The urethra and genitals were prepped and draped in usual sterile fashion. Using a 21 [place] African rigid cystourethroscope the entire length of the urethra was normal then went into the bladder. Identified the trigone the left and right ureteral orifice. I then cannulated the left orifice and advanced a wire up into the kidney. Around the left ureteral orifice there was a mass pushing up on the ureter from the trigone area of the bladder. I then backloaded a 5 [place] African open ended catheter over the wire and injected contrast to delineate the anatomy. The patient still had hydronephrosis on the left side and he had a hydronephrotic drip when I advanced the Pollack catheter into the kidney the kidney was still obstructed from this mass. After the retrograde was performed I then used fluoroscopic images and guidance to advanced a wire up into the kidney and over the 0.038 glidewire I advanced a 6 [place] African by 26 cm double pigtail stent. I then pulled the 0.038 Glidewire off and the stent coiled in the kidney bladder good position. The bladder was then drained. We confirmed the position of the stent by fluoroscopy. Patient anesthetic was reversed and was taken back to the PACU in good condition. Type of Anesthesia:: General Drains: 6 x 26 cm stent left side - Admit VTE Documentation VTE Present on Admission: No VTE Mechan Device Prophylaxis: SCD's
[2020-11-16 09:41] LABS: Bedside Glucose 137 mg/dL (70-110)
[2020-11-16] MEDS: HYDROcodone Bitartrate/Apap 5/325 Tablet PO (10:50)
--- NOTE | 2020-11-16 11:40 | SUR.PHASEII ---
RELUCTANT TO VOID, VERBALIZES FEAR OF PAIN WITH URINATION, ASSISTED TO BATHROOM, ONLY VOIDED DROPS PER PATIENT BUT HE FLUSHED TOILET. AMBULATED AROUND UNIT, ENCOURAGED PO INTAKE.
== END 2020-11-16 13:22 | disposition home or self-care (01) ==
LOC: SDC 07:50 → AC 07:51
PROVIDERS: PCP Family Medicine Geriatric Medicine; Referring Provider Urology; Visit Provider Urology
PROC: (CPT 52332; principal; 2020-11-16 09:35)
DX: N13.1 Hydronephrosis with ureteral stricture, not elsewhere classified (principal); C61 Malignant neoplasm of prostate; C79.51 Secondary malignant neoplasm of bone; I10 Essential (primary) hypertension; E78.00 Pure hypercholesterolemia, unspecified; E11.9 Type 2 diabetes mellitus without complications; Z79.4 Long term (current) use of insulin; Z79.899 Other long term (current) drug therapy; Z20.822 Contact with and (suspected) exposure to COVID-19
CPT/HCPCS: 52332; 76000; 82962; 87426; C9803; J7120; C1769; J2405

== ENCOUNTER → 2020-12-02 13:23 | Outpatient (CLI) | payer MEDICARE, OTHER, SELFPAY ==
[2020-11-16 08:31] VITALS: BMI 26.3
[2020-12-02 16:04] LABS: PSA,Total- Diagnostic < 0.01 ng/mL (0.0-4.0)
== END ==
PROVIDERS: PCP Family Medicine Geriatric Medicine; Referring Provider Urology; Visit Provider Urology
DX: C61 Malignant neoplasm of prostate (principal)
CPT/HCPCS: 36415; 84153

== ENCOUNTER → 2021-02-08 14:11 | Outpatient (CLI) | payer MEDICARE, OTHER, SELFPAY ==
[2020-11-16 08:31] VITALS: BMI 26.3
--- NOTE | 2021-02-08 14:20 | RAD_ITS ---
STUDY: X-RAY - LUMBAR SPINE REASON FOR EXAM: Male, 75 years old. LOW BACK PAIN TECHNIQUE: 3 view(s) of the lumbar spine were obtained. COMPARISON: None FINDINGS: Normal lumbar lordosis. There is no substantial scoliosis. There is a normal alignment of the vertebrae. There is multilevel endplate spondylosis of the lumbar vertebrae. There is multi-level degenerative disc disease with multi-level disc space narrowing. There is no demonstrated fracture. The soft tissue structures are unremarkable. Left-sided ureteral stent catheter RAD/Lumbar Spine 2 or 3 Views IMPRESSION: Degenerative changes of the spine, as detailed above. Electronically Signed: Aftab Roca DO at 22:28 EDT Tel , Service support ,
[2021-02-08 16:12] LABS: Absolute Lymphocyte Count 0.67 X10^3/uL (0.83-4.51); Absolute Neutrophil Count 4.1 X10^3/uL (2.0-7.7); Basophil# 0.04 X10^3/uL; Basophil% 0.7 % (0-1); Eosinophil# 0.19 X10^3/uL; Eosinophils% 3.3 % (0-5); Hematocrit 34.2 % (40-54); Hemoglobin 11.6 g/dL (13.0-16.5); Lymphocyte # 0.67 X10^3/ul (4.0); Lymphocyte % 11.8 % (19-41); Mean Corp Hgb Conc 33.9 g/dL (32-36); Mean Corpuscular Hgb 31.2 pg (27.0-32.0); Mean Corpuscular Volume 91.9 fL (80-94); Mean Platelet Vol. 9.5 fl (6.2-12.0); Monocyte# 0.62 X10^3/uL; Monocyte% 10.9 % (0-10); NRBC Flagged by Analyzer 0 % (0-5); Neutrophil # 4.14 X10^3/uL (2.7-7.7); Neutrophil % 72.6 % (47-70); Platelet Count 294 K/mm3 (150-450); RBC Distribution Width CV 13.9 % (11.6-14.6); Red Blood Count 3.72 M/mm3 (4.6-6.2); White Blood Count 5.7 K/mm3 (4.4-11.0)
[2021-02-08 16:53] LABS: ALB/GLOB Ratio 0.9 RATIO (0.9-2.4); AST(SGOT) 8 U/L (15-37); Alanine Aminotransfer ALT/SGPT 16 U/L (16-61); Albumin, Serum 3.4 g/dL (3.2-5.0); Alkaline Phosphatase 85 U/L (45-117); Anion Gap 5 (5-15); BUN 21 mg/dL (7-18); BUN/Creat Ratio 13.5 RATIO (10-20); Calcium,Total 9.6 mg/dL (8.5-10.1); Chloride 104 mmol/L (98-107); Creatinine, Serum 1.56 mg/dL (0.70-1.30); EST Glomerular Filtration Rate 47 mL/min (>60); Est Glom Filt Rate - Afr Amer 56 mL/min (>60); Globulin 3.8 g/dL (2.2-4.2); Glucose 190 mg/dL (74-106); Potassium 4.6 mmol/L (3.5-5.1); Protein, Total 7.2 g/dL (6.4-8.2); Sodium Level 137 mmol/L (136-145); Thyroid Stim Hormone (TSH) 2.04 uIU/mL (0.358-3.74)
[2021-02-08 17:14] LABS: Vitamin D,25 Hydroxy 37.2 ng/mL
== END ==
PROVIDERS: PCP Family Medicine Geriatric Medicine; Visit Provider Family Medicine Geriatric Medicine
DX: E11.9 Type 2 diabetes mellitus without complications (principal); E55.9 Vitamin D deficiency, unspecified; F52.8 Other sexual dysfunction not due to a substance or known physiological condition; I10 Essential (primary) hypertension
CPT/HCPCS: 36415; 72100; 80053; 82306; 84403; 84443; 85025

== ENCOUNTER 2021-03-08 14:00 | Outpatient (RCR) | payer MEDICARE, OTHER, SELFPAY ==
[2020-11-16 08:31] VITALS: BMI 26.3
--- NOTE | 2021-02-13 14:58 | HP.PTEVAL_ITS ---
Patient's Visit Information RENATA SOUZA is a 75 year old M referred to Physical Therapy by Dr. Zack Vergara MD with a diagnosis of LBP. Date of Evaluation: 02/13/21 Physical Therapist: Jose Luis Moreno DPT, OCS, CSCS - Visit Plan Frequency: 2x /Week Duration: 4-6 Weeks Plan: 2x/week for 4-6 weeks for. 1. rollout and stretch HS adn hip flexors, teach tretches for HEP. 2. NS core mat strength and HEP. 3. gym based general strength LE adn posture in NS adn teach for community center. Postural focus. - Subjective Back pain off and on for 40 years. Swelling in lower discs. Last 6 month has been a litany of treatments adn recovery. Cancer from 6 yrs ago returned prostate and getting more radiationa dn a kidney stent. No real limitation prior to 6 months ago. Up and down last 6 months with radiation. Has lipoma on R LB which doesn't seem to bother him. Currently has general LBP, has an x ray and more swelling and misalignment. Will see chiropractor in April and wants PT in the meantime. Bending over to do anything for any length of time gives him a hard time and lots of pain straightening back up. is pushing self to do more now that weather changes walking 1/2 mile 1-2x/day. Can do some light lifting but then needs to sit due to pain. Prior to weather change was sitting alot more than usual. Sleeping is fine as far as back pain goes. Pain not present with sitting, heating pad helps. Basic Are getting done. 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 Sitting hobby. - Pain LBP Pain Intensity (Out of 10): 0 Pain Intensity Range: 0, 5 - Objective R lipoma palpable in parspinal area of Lumbar. Posture is flat lordosis adn kyphosis in thoracic spine, tend to hunch. Max tightness in HS and hip flexors B. Painful to lie flat on back in LB. Tender lipoma to sit with LB at chair so hunches forward. LB AROM ext min limitd, flexion mod limited, SB min limited. reflexes 2/3 patella adna chilles. Sensation LE WNL to gross light touch. Strength LE 4/5, core 4-/5. able to find pelvic tilt NS on own, trasnfer to sit with pain and needs VC to do through sidelie. - Balance Scores Functional Gait Assessment Score: 27 % Disability: 10.0000 - Goals Goal 1:: Pt feel 50% better with pain no greater than 1/10 in LB Goal Time Frame: 4-6 Weeks Goal 2:: I approp HEP for hip flexor stretch, core NS strength and ROM adn general strength at home and community center. Goal Time Frame: 4-6 Weeks Goal 3:: Oswestry score 6 or less Goal Time Frame: 4-6 Weeks Goal 4:: Pt walk one mile and bend and recover without increasing pain Goal Time Frame: 4-6 Weeks - Rehabilitation Potential Physical Therapy Diagnosis: LBP inhibiting lifestyle. Rehabilitation Potential: Fair - Anticipated Interventions Patient/Client Instruction: Educate patient on: Condition, Plan of Care For the Purpose of:: To decrease pain, To increase ROM, To increase tolerance to activity/condition/position, To improve gait and locomotor functions, To improve health of tissue Therapeutic Exercise to Include: Strength training, Flexibilty training, Gait and locomotor training, Neuromotor development, Passive ROM, Active ROM, Dynamic Lumbar Stabilization For the Purpose of:: To decrease pain, To improve muscle performance and motor function Thank you for the opportunity to evaluate your patient. For Medicare and Medicare HMO plans, please review the plan of care and approve it. It will need to be FAXED BACK to us at [phone] for Medicare purposes. For Medicare only, by signing this I certify the plan of care. Please let me know if there are questions or concerns regarding this plan of care. Physician Signature: Date:
--- NOTE | 2021-05-16 17:47 | HP.PT.NRP ---
RENATA SOUZA was seen in my office for initial evaluation on 02/13/21. The following Plan of Care was established for this patient: Initial Frequency: 2x /Week Initial Duration: 4-6 Weeks Patient/Client Instruction: Educate patient on: Condition, Plan of Care For the Purpose of:: To decrease pain, To increase ROM, To increase tolerance to activity/condition/position, To improve gait and locomotor functions, To improve health of tissue Therapeutic Exercise to Include: Strength training, Flexibilty training, Gait and locomotor training, Neuromotor development, Passive ROM, Active ROM, Dynamic Lumbar Stabilization For the Purpose of:: To decrease pain, To improve muscle performance and motor function This patient was last seen in our office 03/08/21. Pertinent comments regarding their Physical therapy will appear below: Pt seen for 8 visits of his plan of care but cancelled his last recheck and neglected to reschedule. at this point, it has been over two months and I will discontinue due to nonattendance. At this point I will be discontinuing this patient from physical therapy. I would be happy to see this patient again in the future if found appropriate by the physician. Thank you! Jose Luis Moreno, DPT, OCS, CSCS
== END 2021-03-08 19:00 | disposition home or self-care (01) ==
LOC: PT 14:00
PROVIDERS: PCP Family Medicine Geriatric Medicine; Referring Provider Family Medicine Geriatric Medicine; Visit Provider Family Medicine Geriatric Medicine
DX: M54.5 Low back pain (principal)
CPT/HCPCS: 97110; 97162

== ENCOUNTER → 2021-03-08 14:44 | Outpatient (CLI) | payer MEDICARE, OTHER, SELFPAY ==
[2020-11-16 08:31] VITALS: BMI 26.3
[2021-03-08 17:12] LABS: Anion Gap 9 (5-15); BUN 21 mg/dL (7-18); BUN/Creat Ratio 12.7 RATIO (10-20); Calcium,Total 9.5 mg/dL (8.5-10.1); Chloride 105 mmol/L (98-107); Creatinine, Serum 1.66 mg/dL (0.70-1.30); EST Glomerular Filtration Rate 43 mL/min (>60); Est Glom Filt Rate - Afr Amer 52 mL/min (>60); Glucose 144 mg/dL (74-106); PSA,Total- Diagnostic < 0.01 ng/mL (0.0-4.0); Potassium 4.2 mmol/L (3.5-5.1); Sodium Level 140 mmol/L (136-145)
== END ==
PROVIDERS: PCP Family Medicine Geriatric Medicine; Referring Provider Urology; Visit Provider Urology
DX: C61 Malignant neoplasm of prostate (principal)
CPT/HCPCS: 36415; 80048; 84153; 84403

== ENCOUNTER 2021-03-29 06:47 | Day surgery (SDC) | payer MEDICARE, OTHER, SELFPAY ==
[2020-11-16 08:31] VITALS: BMI 26.3
[2021-03-29] VITALS (7 sets, daily range): BP systolic 130–146; BP diastolic 63–83; PULSE 54–76; RESP 16; TEMP 36.1–36.6; O2SAT 92–97; BMI 27.3
[2021-03-29] MEDS: Lactated Ringers 1,000 ML 100 ML IV ×2 (07:19→10:18)
[2021-03-29 07:55] LABS: Bedside Glucose 171 mg/dL (70-110)
[2021-03-29] MEDS: Cefazolin 2 GM in 0.9% Normal Saline 100 ML IV (08:16)
--- NOTE | 2021-03-29 08:22 | PCM.HP.STD ---
HPI - General HPI Narrative RENATA SOUZA, is a 76 M who presents for a cystoscopy left stent in left retrograde pyelogram his history of prostate cancer with obstruction of the ureter with a large lymph node. PFSH Medical History Back pain Cancer Dietary restriction High cholesterol History of prostate cancer History of renal disease Hypertension Insulin dependent diabetes mellitus Non-smoker Home Medications Levemir U-100 Insulin 60 units SUBCUT DAILY 10/13/13 [History Last Taken 05/01/19] lisinopril 2.5 mg PO DAILY 10/13/13 [History Last Taken 05/01/19] multivitamin with folic acid [Thera] 1 tab PO DAILY 10/13/13 [History Last Taken 05/01/19] glimepiride 4 mg PO BID 05/02/19 [History Last Taken 05/01/19] insulin detemir U-100 58 units SUBCUT QHS 05/02/19 [History Last Taken 05/01/19] rosuvastatin 20 mg PO QHS 05/02/19 [History Last Taken 05/01/19] ascorbic acid (vitamin C) 500 mg PO BID 07/27/20 [History Last Taken Unknown] calcium carbonate-vitamin D3 1 ea PO DAILY 07/27/20 [History Last Taken Unknown] enzalutamide 160 mg PO DAILY 07/27/20 [History Last Taken Unknown] leuprolide 7.5 mg SQ X1 07/27/20 [History Last Taken Unknown] semaglutide 1 mg SQ QWEEK 07/27/20 [History Last Taken Unknown] ciprofloxacin HCl [Cipro] 500 mg PO BID #6 tab 03/29/21 [Rx Last Taken Unknown] oxycodone-acetaminophen [Percocet] 1 tab PO Q6H PRN 7 Days #7 tab 03/29/21 [Rx Last Taken Unknown] Allergy/AdvReac Type Severity Reaction Status Date / Time Penicillins Allergy Rash Verified 03/22/21 10:06 tadalafil [From Cialis] AdvReac PT UNSURE Verified 03/22/21 10:06 OF REACTION Surgical History (Updated 03/22/21 @ 10:18 by Shanna Moses) History of radical prostatectomy Hx of colonoscopy Hx of right cataract extraction S/P cystoscopy with ureteral stent placement Social History Smoking Status: Never smoker Vital Signs Vital Signs Vital Signs: 03/29/21 07:14 Temperature 97.5 F L Temperature Source Temporal Pulse Rate 54 L Respiratory Rate 16 Respiratory Pattern Normal Blood Pressure 140/70 H Blood Pressure Mean 93 Blood Pressure Source Monitor Blood Pressure Position Semi-Fowlers Blood Pressure Location Right Arm Pulse Ox 92 Oxygen Delivery Method Room Air Weight Weight: 89.1 kg Body Mass Index (BMI) 27.3 Physical Exam Const alert and oriented x3 General Appearance: cooperative HEENT normocephalic, head/scalp atraumatic, EAC's normal and TM's normal bilaterally Eyes PERRL and EOMs intact bilaterally Pupil: sluggish Neck no lymphadenopathy, supple and no JVD General: trachea midline Lymph Lymphatic: no lymphadenopathy noted, lymphedema and lymphadenopathy Resp normal respiratory effort, normal air movement and clear to auscultation bilaterally Cardio regular rate, regular rhythm and peripheral pulses 2+ throughout GI soft to palpation, non-tender and non-distended Extremity normal capillary refill and no clubbing, cyanosis or edema General Extremity: no tenderness to palpation of joints or extremities Skin no rashes or lesions noted General Skin Exam: turgor normal Lesions: no lesions Rashes: no rashes Neuro CN's II-XII intact bilaterally Speech: speech normal Motor Exam: strength 5/5 throughout; Negative for general weakness Psych thought process normal, cooperative and affect normal Appearance: appropriate Lab / Micro Data Labs: Laboratory Results - last 24 hr 03/29/21 07:15 POC Glucose 171 H Assessment & Plan Assessment/Plan (1) Ureteral obstruction, left: PLAN: Plan to proceed with cystoscopy left retrograde pyelogram and left stent placement. (2) Prostate cancer:
--- NOTE | 2021-03-29 08:23 | PCM.DC ---
Discharge Instructions Diet Discharge Diet: No restrictions Activity Discharge Activity: May not drive while taking narcotic pain medications. (for 3 days.) May shower in (days): 1 Dressing / Incision Call your doctor if your incision/area has: Continuous Slow Oozing, Increased Pain/ Swelling, Increased Redness and Foul Smelling Discharge Call your doctor if you observe: Fever of 101 or Higher, Numbness or Tingling, Shortness of breath, Dizziness, Calf discomfort and Uncontrolled pain Cleanse incision/area with: Keep Dressing Clean & Dry Follow Up Care Please Follow Up With: Tani Grey MD When: Call [phone] for an appointment Test Results: Test results from this visit will be discussed in further detail at your follow-up appointment, if applicable. Discharge Plan Admission Primary Reason for Your Visit: stent change Attending Provider: Tani Grey Primary Care Provider: Zack Vergara Chi Discharge Orders/Prescriptions Prescriptions: New ciprofloxacin HCl [Cipro] 500 mg tablet 500 mg PO BID Qty: 6 RF: 0 oxycodone-acetaminophen [Percocet] 5-325 mg tablet 1 tab PO Q6H PRN (Reason: pain) 7 Days Qty: 7 RF: 0 Continued lisinopril 10 MG tablet 2.5 mg PO DAILY RF: 0 Levemir U-100 Insulin 100 UNIT/ML solution 60 units subcut DAILY RF: 0 multivitamin with folic acid [Thera] 1 TABLET tablet 1 tab PO DAILY RF: 0 insulin detemir U-100 100 UNITS/ML insulin pen 58 units subcut QHS RF: 0 glimepiride 4 MG tablet 4 mg PO BID RF: 0 rosuvastatin 20 MG tablet 20 mg PO QHS RF: 0 leuprolide 7.5 MG syringe 7.5 mg SQ X1 RF: 0 enzalutamide 40 MG capsule 160 mg PO DAILY RF: 0 semaglutide 1 MG/0.75 ML pen injector 1 mg SQ QWEEK RF: 0 ascorbic acid (vitamin C) 500 MG tablet 500 mg PO BID RF: 0 calcium carbonate-vitamin D3 1 EACH tablet 1 ea PO DAILY RF: 0 Referrals / Follow Up: Tani Grey MD [STAFF PHYSICIAN] - Zack Vergara Chi, MD [Primary Care Provider] - Disposition Discharge Orders: Discharge Patient (Routine); Ordered 03/29/21 Ordered By: Dr. Tani Grey
[2021-03-29] MEDS: Lidocaine Jelly 2% 20 ML Syringe (URO-JET) 20 APPLIC (08:29)
--- NOTE | 2021-03-29 08:39 | OP.PCM_ITS ---
Report of Operation Date of Procedure: 03/29/21 Pre-Operative Diagnosis: Prostate cancer, obstruction of the left ureter from l ymph node Post-Operative Diagnosis: Same Surgery/Procedure Performed:: Cystoscopy left retrograde pyelogram left stent change. Description of Surgical Findings:: Patient was taken back to the operating room after induction of general anesthesia, the patient was placed in dorsolithotomy position. The urethra and genitals were prepped and draped in usual sterile fashion. Using a 21 [place] rigid cystourethroscope the entire length of the urethra was normal then went into the bladder. Identified the trigone the left and right ureteral orifice. I then cannulated the left orifice and advanced a wire up into the kidney. I then backloaded a 5 P[place] open ended catheter over the wire and injected contrast to delineate the anatomy. Contrast was injected into the ureter he can see contrast going up to the kidney in a smooth fashion there were no filling defects stones along the course of the ureter the kidney filled out nicely with no filling defects within the kidney. Still had significant hydronephrosis and poor drainage from the left kidney with a ureteral narrowing stricture in the distal left ureter. After the retrograde was performed I then used fluoroscopic images and guidance to advanced a wire up into the kidney and over the 0.038 glidewire I advanced a 6 P[place] by 26 cm double pigtail stent. I then pulled the 0.038 Glidewire off and the stent coiled in the kidney bladder good position. The bladder was then drained. We confirmed the position of the stent by fluoroscopy. Patient anesthetic was reversed and was taken back to the PACU in good condition. Type of Anesthesia: General Drains: left stent Admit VTE Documentation VTE Present on Admission: No VTE Mechan Device Prophylaxis: SCD's
== END 2021-03-29 11:25 ==
LOC: SDC 06:50 → AC 06:50
PROVIDERS: PCP Family Medicine Geriatric Medicine; Referring Provider Urology; Visit Provider Urology
PROC: (CPT 52005; principal; 2021-03-29 08:40)
DX: N13.1 Hydronephrosis with ureteral stricture, not elsewhere classified (principal); C61 Malignant neoplasm of prostate; E78.00 Pure hypercholesterolemia, unspecified; I10 Essential (primary) hypertension; E11.9 Type 2 diabetes mellitus without complications; Z79.4 Long term (current) use of insulin; Z79.899 Other long term (current) drug therapy
CPT/HCPCS: 00910; 52005; 52332; 76000; 82962; J7050; J7120; C1769; J2405

== ENCOUNTER → 2021-05-17 | Outpatient (CLI) | payer MEDICARE, OTHER, SELFPAY ==
[2021-05-11 16:10] VITALS: BMI 27.3
== END | disposition home or self-care (01) ==
LOC: LABSPEC 16:33
PROVIDERS: PCP Family Medicine Geriatric Medicine; Visit Provider Family Medicine Geriatric Medicine
DX: N39.0 Urinary tract infection, site not specified (principal)
CPT/HCPCS: 87086; 87088

== ENCOUNTER → 2021-05-25 11:43 | Outpatient (CLI) | payer MEDICARE, OTHER, SELFPAY ==
[2021-05-11 16:10] VITALS: BMI 27.3
[2021-05-25 17:27] LABS: Absolute Lymphocyte Count 0.88 X10^3/uL (0.83-4.51); Absolute Neutrophil Count 5.5 X10^3/uL (2.0-7.7); Basophil# 0.04 X10^3/uL; Basophil% 0.5 % (0-1); Eosinophil# 0.12 X10^3/uL; Eosinophils% 1.6 % (0-5); Hematocrit 38.1 % (40-54); Hemoglobin 12.8 g/dL (13.0-16.5); Lymphocyte # 0.88 X10^3/ul (0.83-4.51); Lymphocyte % 12.1 % (19-41); Mean Corp Hgb Conc 33.6 g/dL (32-36); Mean Corpuscular Hgb 31.4 pg (27.0-32.0); Mean Corpuscular Volume 93.4 fL (80-94); Mean Platelet Vol. 10.8 fl (6.2-12.0); Monocyte% 9.6 % (0-10); NRBC Flagged by Analyzer 0 % (0-5); Neutrophil # 5.46 X10^3/uL (2.7-7.7); Neutrophil % 74.8 % (47-70); POSITIVE COUNT YES; Platelet Count 288 K/mm3 (150-450); RBC Distribution Width CV 13.6 % (11.6-14.6); RBC Distribution Width SD 46.2 fl (35.1-43.9); Red Blood Count 4.08 M/mm3 (4.6-6.2); White Blood Count 7.3 K/mm3 (4.4-11.0)
[2021-05-25 17:56] LABS: Differential Indicated SCAN CRITERIA MET
[2021-05-25 18:03] LABS: Anisocytosis RARE; Macrocytosis RARE; Platelet Estimate ADEQUATE (ADEQ); Red Cell Morphology N CHROM NORMAL (NORM C&C)
[2021-05-25 18:25] LABS: AST(SGOT) 22 U/L (15-37); Alanine Aminotransfer ALT/SGPT 24 U/L (16-61); Albumin, Serum 3.6 g/dL (3.2-5.0); Alkaline Phosphatase 92 U/L (45-117); Anion Gap 10 (5-15); BUN 39 mg/dL (7-18); BUN/Creat Ratio 24.5 RATIO (10-20); Chloride 104 mmol/L (98-107); Creatinine, Serum 1.59 mg/dL (0.70-1.30); EST Glomerular Filtration Rate 45 mL/min (>60); Est Glom Filt Rate - Afr Amer 55 mL/min (>60); Globulin 3.6 g/dL (2.2-4.2); Glucose 249 mg/dL (74-106); Potassium 5.2 mmol/L (3.5-5.1); Protein, Total 7.2 g/dL (6.4-8.2); Sodium Level 137 mmol/L (136-145); Thyroid Stim Hormone (TSH) 1.53 uIU/mL (0.358-3.74)
[2021-05-26 08:22] LABS: Vitamin D,25 Hydroxy 53.8 ng/mL
== END ==
PROVIDERS: PCP Family Medicine Geriatric Medicine; Visit Provider Family Medicine Geriatric Medicine
DX: E11.9 Type 2 diabetes mellitus without complications (principal); E55.9 Vitamin D deficiency, unspecified; F52.8 Other sexual dysfunction not due to a substance or known physiological condition; I10 Essential (primary) hypertension
CPT/HCPCS: 36415; 80053; 82306; 84403; 84443; 85025

== ENCOUNTER → 2021-06-12 13:55 | Outpatient (CLI) | payer MEDICARE, OTHER, SELFPAY ==
[2021-06-08 16:00] VITALS: BMI 27.3
[2021-06-12 16:01] LABS: Anion Gap 7 (5-15); BUN 34 mg/dL (7-18); BUN/Creat Ratio 25.8 RATIO (10-20); Chloride 101 mmol/L (98-107); Creatinine, Serum 1.32 mg/dL (0.70-1.30); EST Glomerular Filtration Rate 56 mL/min (>60); Est Glom Filt Rate - Afr Amer 68 mL/min (>60); Glucose 362 mg/dL (74-106); PSA,Total- Diagnostic < 0.01 ng/mL (0.0-4.0); Potassium 4.9 mmol/L (3.5-5.1); Sodium Level 134 mmol/L (136-145)
== END ==
PROVIDERS: PCP Family Medicine Geriatric Medicine; Referring Provider Urology; Visit Provider Urology
DX: C61 Malignant neoplasm of prostate (principal)
CPT/HCPCS: 36415; 80048; 84153

== ENCOUNTER 2021-07-19 05:39 | Day surgery (SDC) | payer MEDICARE, OTHER, SELFPAY ==
[2021-07-19 06:05] VITALS: BP 126/88; PULSE 67; RESP 16; TEMP 36.3; O2SAT 99; BMI 26.9
[2021-07-19] MEDS: Lactated Ringers 1,000 ML 100 ML IV (06:05)
[2021-07-19] MEDS: Cefazolin 2 GM in 0.9% Normal Saline 100 ML IV (07:15)
[2021-07-19] MEDS: Lidocaine Jelly 2% 20 ML Syringe (URO-JET) 20 APPLIC (07:29)
[2021-07-19] MEDS: Lubricating Jelly 60 GM Tube 30 GM TOPICAL (07:30)
[2021-07-19 07:43] VITALS: BP 122/67; BP 126/88; PULSE 74; RESP 16; TEMP 36.2; O2SAT 93
--- NOTE | 2021-07-19 07:44 | OP.PCM_ITS ---
Report of Operation Date of Procedure: 07/19/21 Pre-Operative Diagnosis: Prostate cancer and left ureteral obstruction status p ost treatment Post-Operative Diagnosis: The same with resolution of obstruction Surgery/Procedure Performed:: Cystoscopy left retrograde pyelogram and left stent removal, interpretation of fluoroscopic images Description of Surgical Findings:: Indication is a 76-year-old male who has prostate cancer he has recurrence of prostate cancer now and is currently being treated with hormone therapy and also antiandrogens he has done really well with treatment his PSA is dropped significantly and now he comes in for possible stent change. He had developed obstruction of the left mid ureter due to a swollen lymph node and at this point were hoping of the lymph node as it goes down with treatment he may not need the stent anymore. 76-year-old male was taken back to the operating room at the smooth induction of general anesthesia he was placed in dorsolithotomy position. Penis and testicles were prepped and draped in usual sterile fashion. I went into the bladder with a 21 Turkmen rigid cystourethroscope the entire length the urethra is normal the prostate was absent the bladder there was a stent emanating from the left ureteral orifice I grabbed it with a grasper pulled out the meatus I try to put a wire up through the stent but it was too encrusted so then I went back and next the stent with the cystoscope and they could see the ureteral orifice there was a lot of bullous edema around the orifice itself. I then pulled out the stent and was able to then cannulated with a 5 Turkmen open-ended Pollack catheter and performed a retrograde pyelogram there was smooth contrast going up the ureter there was slight dilation of the renal pelvis but no mandeep swelling there is no blunting of the calyces there was no severe hydronephrosis we then injected contrast we watch the contrast come down and he could see the contrast slowly come down from the kidney and it looks like it was draining and again there was no mandeep hydronephrosis. Given the findings I decided not to place a stent at this point he will go with a stent will go with observation is possible he may need a stent placed if the swelling comes back. Patient's bladder was drained as anesthetic was reversed and will see him in 3 months for routine follow-up. Surgeon: samson Type of Anesthesia: General Drains: none Admit VTE Documentation VTE Present on Admission: No VTE Mechan Device Prophylaxis: SCD's
--- NOTE | 2021-07-19 07:44 | PCM.DC ---
Discharge Instructions Diet Discharge Diet: No restrictions Activity Discharge Activity: Return to Normal Activity and May Not Drive (while taking narcotic pain medications.) Dressing / Incision Call your doctor if you observe: Fever of 101 or Higher Follow Up Care Please Follow Up With: Tani Grey MD When: Call [phone] for an appointment Test Results: Test results from this visit will be discussed in further detail at your follow-up appointment, if applicable. Discharge Plan Admission Primary Reason for Your Visit: Cystoscopy left retrograde and left stent removal Attending Provider: Tani Grey Primary Care Provider: Zack Vergara Chi Discharge Orders/Prescriptions Prescriptions: New ciprofloxacin HCl [Cipro] 500 mg tablet 500 mg PO BID Qty: 6 RF: 0 No Action lisinopril 10 MG tablet 2.5 mg PO DAILY RF: 0 Levemir U-100 Insulin 100 UNIT/ML solution 70 units subcut 0800 RF: 0 multivitamin with folic acid [Thera] 1 TABLET tablet 1 tab PO DAILY RF: 0 Levemir FlexTouch U-100 Insuln 100 UNITS/ML insulin pen 53 units subcut QHS RF: 0 glimepiride 4 MG tablet 4 mg PO BID RF: 0 rosuvastatin 20 mg tablet 20 mg PO QHS RF: 0 Eligard 7.5 MG syringe 7.5 mg [id number] RF: 0 enzalutamide 40 MG capsule 160 mg PO DAILY RF: 0 ascorbic acid (vitamin C) 500 MG tablet 500 mg PO BID RF: 0 semaglutide 1 mg/dose (2 mg/1.5 mL) pen injector 1 mg subcut QWEEK RF: 0 oxycodone-acetaminophen [Percocet] 5-325 mg tablet 1 tab PO Q6H PRN (Reason: pain) 7 Days Qty: 7 RF: 0 Referrals / Follow Up: Tani Grey MD [STAFF PHYSICIAN] - Zack Vergara Chi, MD [Primary Care Provider] - Disposition Disposition (needs filled in before D/C Order can be placed): Home, Self Care
[2021-07-19 07:48] VITALS: BP 125/60; BP 126/88; PULSE 72; RESP 16; O2SAT 93
[2021-07-19 07:53] VITALS: BP 116/67; BP 126/88; PULSE 72; RESP 16; O2SAT 93
[2021-07-19 07:58] VITALS: BP 126/88; BP 128/66; PULSE 67; RESP 16; TEMP 36.1; O2SAT 97
[2021-07-19 10:14] VITALS: BP 126/88; BP 144/60; PULSE 68; RESP 16; TEMP 36.3; O2SAT 98
--- NOTE | 2021-07-23 14:30 | PCM.HP.STD ---
HPI - General HPI Narrative RENATA SOUZA, is a 76 M who presents for possible stent change. PFSH Medical History Back pain Cancer Dietary restriction High cholesterol History of prostate cancer History of renal disease Hypertension Insulin dependent diabetes mellitus Non-smoker Home Medications Levemir U-100 Insulin 70 units SUBCUT 0800 10/13/13 [History Last Taken 05/01/19] lisinopril 2.5 mg PO DAILY 10/13/13 [History Last Taken 05/01/19] multivitamin with folic acid [Thera] 1 tab PO DAILY 10/13/13 [History Last Taken 05/01/19] glimepiride 4 mg PO BID 05/02/19 [History Last Taken 05/01/19] insulin detemir U-100 [Levemir FlexTouch U-100 Insuln] 53 units SUBCUT QHS 05/02/19 [History Last Taken 05/01/19] ascorbic acid (vitamin C) 500 mg PO BID 07/27/20 [History Last Taken Unknown] enzalutamide 160 mg PO DAILY 07/27/20 [History Last Taken Unknown] leuprolide [Eligard] 7.5 mg [id number] 07/27/20 [History Last Taken Unknown] oxycodone-acetaminophen [Percocet] 1 tab PO Q6H PRN 7 Days #7 tab 03/29/21 [Rx Last Taken Unknown] rosuvastatin 20 mg tablet 20 mg PO QHS 04/20/21 [History Last Taken Unknown] semaglutide 1 mg/dose (2 mg/1.5 mL) subcutaneous pen injector 1 mg SUBCUT QWEEK 04/20/21 [History Last Taken Unknown] ciprofloxacin HCl [Cipro] 500 mg PO BID #6 tab 07/19/21 [Rx Last Taken Unknown] Allergy/AdvReac Type Severity Reaction Status Date / Time Penicillins Allergy Rash Verified 07/19/21 06:10 tadalafil [From Cialis] AdvReac PT UNSURE Verified 07/19/21 06:10 OF REACTION Surgical History History of radical prostatectomy Hx of colonoscopy Hx of cystoscopy Hx of right cataract extraction S/P cystoscopy with ureteral stent placement Social History Smoking Status: Never smoker Vital Signs Vital Signs Vital Signs: Weight Weight: 90 kg Body Mass Index (BMI) 26.9 Physical Exam Const alert and oriented x3 General Appearance: cooperative HEENT normocephalic, head/scalp atraumatic, EAC's normal and TM's normal bilaterally Eyes PERRL and EOMs intact bilaterally Pupil: sluggish Neck no lymphadenopathy, supple and no JVD General: trachea midline Lymph Lymphatic: no lymphadenopathy noted, lymphedema and lymphadenopathy Resp normal respiratory effort, normal air movement and clear to auscultation bilaterally Cardio regular rate, regular rhythm and peripheral pulses 2+ throughout GI soft to palpation, non-tender and non-distended Extremity normal capillary refill and no clubbing, cyanosis or edema General Extremity: no tenderness to palpation of joints or extremities Skin no rashes or lesions noted General Skin Exam: turgor normal Lesions: no lesions Rashes: no rashes Neuro CN's II-XII intact bilaterally Speech: speech normal Motor Exam: strength 5/5 throughout; Negative for general weakness Psych thought process normal, cooperative and affect normal Appearance: appropriate Assessment & Plan Assessment/Plan (1) Prostate cancer: (2) Ureteral obstruction, left:
== END 2021-07-19 10:16 | disposition home or self-care (01) ==
LOC: SDC 05:41 → AC 05:42
PROVIDERS: PCP Family Medicine Geriatric Medicine; Referring Provider Urology; Visit Provider Urology
PROC: (CPT 52005; principal; 2021-07-19 07:05)
DX: N13.5 Crossing vessel and stricture of ureter without hydronephrosis (principal); C61 Malignant neoplasm of prostate; E78.00 Pure hypercholesterolemia, unspecified; E11.9 Type 2 diabetes mellitus without complications; I10 Essential (primary) hypertension; Z79.4 Long term (current) use of insulin; Z79.899 Other long term (current) drug therapy
CPT/HCPCS: 00910; 52005; 76000; J7120; Q9967; C1769; J2405

== ENCOUNTER → 2021-08-24 11:29 | Outpatient (CLI) | payer MEDICARE, OTHER, SELFPAY ==
[2021-08-24 16:13] LABS: Absolute Lymphocyte Count 0.82 X10^3/uL (0.83-4.51); Absolute Neutrophil Count 3.5 X10^3/uL (2.0-7.7); Basophil# 0.04 X10^3/uL; Basophil% 0.8 % (0-1); Eosinophil# 0.18 X10^3/uL; Eosinophils% 3.4 % (0-5); Hematocrit 37.6 % (40-54); Hemoglobin 12.3 g/dL (13.0-16.5); Lymphocyte # 0.82 X10^3/ul (0.83-4.51); Lymphocyte % 15.6 % (19-41); Mean Corp Hgb Conc 32.7 g/dL (32-36); Mean Corpuscular Hgb 30.4 pg (27.0-32.0); Mean Corpuscular Volume 93.1 fL (80-94); Mean Platelet Vol. 9.7 fl (6.2-12.0); Monocyte# 0.64 X10^3/uL; Monocyte% 12.2 % (0-10); NRBC Flagged by Analyzer 0 % (0-5); Neutrophil # 3.53 X10^3/uL (2.7-7.7); Neutrophil % 67.2 % (47-70); Platelet Count 345 K/mm3 (150-450); RBC Distribution Width CV 13.4 % (11.6-14.6); Red Blood Count 4.04 M/mm3 (4.6-6.2); White Blood Count 5.3 K/mm3 (4.4-11.0)
[2021-08-24 16:40] LABS: Vitamin D,25 Hydroxy 40.3 ng/mL
[2021-08-24 16:41] LABS: ALB/GLOB Ratio 0.9 RATIO (0.9-2.4); AST(SGOT) 15 U/L (15-37); Alanine Aminotransfer ALT/SGPT 22 U/L (16-61); Albumin, Serum 3.6 g/dL (3.2-5.0); Alkaline Phosphatase 78 U/L (45-117); Anion Gap 9 (5-15); BUN 23 mg/dL (7-18); BUN/Creat Ratio 15.4 RATIO (10-20); Calcium,Total 9.7 mg/dL (8.5-10.1); Chloride 101 mmol/L (98-107); Creatinine, Serum 1.49 mg/dL (0.70-1.30); EST Glomerular Filtration Rate 49 mL/min (>60); Est Glom Filt Rate - Afr Amer 59 mL/min (>60); Glucose 199 mg/dL (74-106); Potassium 4.8 mmol/L (3.5-5.1); Protein, Total 7.6 g/dL (6.4-8.2); Sodium Level 138 mmol/L (136-145); Thyroid Stim Hormone (TSH) 2.06 uIU/mL (0.358-3.74)
== END ==
PROVIDERS: PCP Family Medicine Geriatric Medicine; Visit Provider Family Medicine Geriatric Medicine
DX: E11.9 Type 2 diabetes mellitus without complications (principal); E55.9 Vitamin D deficiency, unspecified; F52.8 Other sexual dysfunction not due to a substance or known physiological condition; I10 Essential (primary) hypertension
CPT/HCPCS: 36415; 80053; 82306; 84403; 84443; 85025

== ENCOUNTER → 2021-08-29 13:44 | Outpatient (CLI) | payer MEDICARE, OTHER, SELFPAY ==
--- NOTE | 2021-08-29 13:47 | US_ITS ---
HISTORY: Right testicular pain. TECHNIQUE: Realtime ultrasound of the testicles was performed with grayscale, Color Doppler and spectral Doppler analysis. # of images incl. paperwork: 84. COMPARISON: None. FINDINGS: RIGHT TESTIS: 2.4 x 3 x 1.5 cm. Heterogeneous echotexture with microlithiasis. RIGHT EPIDIDYMIS: 1.1 cm, also heterogeneous. LEFT TESTIS: 2.5 x 3.1 x 1.6 cm. heterogeneous echotexture with microlithiasis. LEFT EPIDIDYMIS: 1 cm with heterogeneity. COLOR DOPPLER: Vascular flow present in both testicles. No focal hyperemia. OTHER: Scrotal wall thickening. US/Testicular with Arterial Flow IMPRESSION: Vascular flow demonstrated to both testicles. Heterogeneity of the bilateral testicles with microlithiasis. Heterogeneous epididymides. Scrotal wall thickening. at 1509 Reported and signed by: aC Delgado MD Electronically Signed: Ca Delgado MD at 15:07 EDT Tel , Service support ,
== END ==
PROVIDERS: PCP Family Medicine Geriatric Medicine; Referring Provider Family Medicine Geriatric Medicine; Visit Provider Family Medicine Geriatric Medicine
DX: N50.811 Right testicular pain (principal)
CPT/HCPCS: 76870; 93976

== ENCOUNTER → 2021-09-25 07:56 | Outpatient (CLI) | payer MEDICARE, OTHER, SELFPAY ==
--- NOTE | 2021-09-25 08:14 | MRI_ITS ---
ACR Level 3 findings have been noted. An addendum which confirms receipt of the report will follow. STUDY: MRI LUMBAR SPINE WITHOUT CONTRAST REASON FOR EXAM: Male, 76 years old. BACK PAIN TECHNIQUE: Standardized fat and water weighted pulse sequences were obtained in the sagittal and axial planes. COMPARISON: X-ray dated 02/08/2021 FINDINGS: Lumbar lordosis maintained. No significant scoliosis. No acute fracture, dislocation or cortical destruction. Hemangiomas. Conus medullaris terminates normally at the T12-L1 level. Mild paraspinal muscle atrophy. Sacrum intact. Normal aorta. Nonspecific dilated left ureter (axial images 1 through 20 series 5). Marrow changes consistent with osteopenia/osteoporosis versus radiation therapy. T12-L1: Normal endplates. Disc desiccation. Normal bilateral facet joints. Normal central canal and bilateral lateral recesses. Normal bilateral intervertebral neural foramina. L1-2: Mild endplate spondylosis. Disc desiccation. Facet joint arthrosis. Normal central canal and bilateral lateral recesses. Normal bilateral intervertebral neural foramina. L2-3: Mild endplate spondylosis. Shallow disc bulge. Facet joint arthrosis. Normal central canal and bilateral lateral recesses. Normal bilateral intervertebral neural foramina. L3-4: Mild endplate spondylosis. Disc bulge, annular fissure, without central canal narrowing. Facet joint arthrosis. Normal central canal and bilateral lateral recesses. Mild neural foraminal narrowing. L4-5: Mild endplate spondylosis. Disc bulge with mild central canal narrowing. Facet joint arthrosis. Normal bilateral lateral recesses. Mild neural foraminal narrowing. L5-S1: Normal endplates. Disc bulge, annular fissure, without central canal narrowing. Facet joint arthrosis. Normal central canal and bilateral lateral recesses. Normal bilateral intervertebral neural foramina. 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
[2021-09-25 09:53] LABS: ALB/GLOB Ratio 0.9 RATIO (0.9-2.4); AST(SGOT) 11 U/L (15-37); Alanine Aminotransfer ALT/SGPT 19 U/L (16-61); Albumin, Serum 3.4 g/dL (3.2-5.0); Alkaline Phosphatase 81 U/L (45-117); Anion Gap 6 (5-15); BUN 22 mg/dL (7-18); BUN/Creat Ratio 15.5 RATIO (10-20); Calcium,Total 9.4 mg/dL (8.5-10.1); Chloride 106 mmol/L (98-107); Creatinine, Serum 1.42 mg/dL (0.70-1.30); EST Glomerular Filtration Rate 52 mL/min (>60); Est Glom Filt Rate - Afr Amer 63 mL/min (>60); Globulin 3.9 g/dL (2.2-4.2); Glucose 98 mg/dL (74-106); PSA,Total- Diagnostic < 0.01 ng/mL (0.0-4.0); Potassium 4.4 mmol/L (3.5-5.1); Protein, Total 7.3 g/dL (6.4-8.2); Sodium Level 141 mmol/L (136-145)
== END ==
PROVIDERS: PCP Family Medicine Geriatric Medicine; Referring Provider Anesthesiology Pain Medicine; Visit Provider Anesthesiology Pain Medicine
DX: C61 Malignant neoplasm of prostate (principal); M54.9 Dorsalgia, unspecified
CPT/HCPCS: 36415; 72148; 80053; 84153

== ENCOUNTER 2021-11-23 15:05 | Outpatient (CLI) | payer MEDICARE, OTHER, SELFPAY ==
[2021-11-23 16:58] LABS: Absolute Neutrophil Count 3.5 X10^3/uL (2.0-7.7); Basophil# 0.03 X10^3/uL; Basophil% 0.6 % (0-1); Eosinophil# 0.13 X10^3/uL; Eosinophils% 2.4 % (0-5); Hematocrit 38.1 % (40-54); Hemoglobin 12.8 g/dL (13.0-16.5); Lymphocyte % 18.7 % (19-41); Mean Corp Hgb Conc 33.6 g/dL (32-36); Mean Corpuscular Hgb 31.1 pg (27.0-32.0); Mean Corpuscular Volume 92.7 fL (80-94); Mean Platelet Vol. 9.6 fl (6.2-12.0); Monocyte# 0.64 X10^3/uL; Monocyte% 11.9 % (0-10); NRBC Flagged by Analyzer 0 % (0-5); Neutrophil # 3.53 X10^3/uL (2.7-7.7); Neutrophil % 65.8 % (47-70); Platelet Count 326 K/mm3 (150-450); RBC Distribution Width CV 13.7 % (11.6-14.6); RBC Distribution Width SD 46.5 fl (35.1-43.9); Red Blood Count 4.11 M/mm3 (4.6-6.2); White Blood Count 5.4 K/mm3 (4.4-11.0)
[2021-11-23 17:26] LABS: Vitamin D,25 Hydroxy 43.7 ng/mL
[2021-11-23 17:36] LABS: ALB/GLOB Ratio 0.9 RATIO (0.9-2.4); AST(SGOT) 22 U/L (15-37); Alanine Aminotransfer ALT/SGPT 26 U/L (16-61); Albumin, Serum 3.7 g/dL (3.2-5.0); Alkaline Phosphatase 85 U/L (45-117); Anion Gap 8 (5-15); BUN 24 mg/dL (7-18); BUN/Creat Ratio 16.4 RATIO (10-20); Calcium,Total 9.5 mg/dL (8.5-10.1); Chloride 103 mmol/L (98-107); Creatinine, Serum 1.46 mg/dL (0.70-1.30); EST Glomerular Filtration Rate 50 mL/min (>60); Est Glom Filt Rate - Afr Amer 61 mL/min (>60); Globulin 3.9 g/dL (2.2-4.2); Glucose 279 mg/dL (74-106); Potassium 4.5 mmol/L (3.5-5.1); Protein, Total 7.6 g/dL (6.4-8.2); Sodium Level 138 mmol/L (136-145); Thyroid Stim Hormone (TSH) 1.85 uIU/mL (0.358-3.74)
== END 2021-11-23 23:59 | disposition short-term general hospital (02) ==
PROVIDERS: PCP Family Medicine Geriatric Medicine; Visit Provider Family Medicine Geriatric Medicine
DX: E11.9 Type 2 diabetes mellitus without complications (principal); E55.9 Vitamin D deficiency, unspecified; F52.8 Other sexual dysfunction not due to a substance or known physiological condition; I10 Essential (primary) hypertension
CPT/HCPCS: 36415; 80053; 82306; 84403; 84443; 85025

== ENCOUNTER 2021-12-28 14:19 | Outpatient (CLI) | payer MEDICARE, OTHER, SELFPAY ==
[2021-12-28 16:32] LABS: PSA,Total- Diagnostic < 0.01 ng/mL (0.0-4.0)
== END 2021-12-28 23:59 | disposition home or self-care (01) ==
LOC: BIMLAB 14:19
PROVIDERS: PCP Family Medicine Geriatric Medicine; Referring Provider Urology; Visit Provider Urology
DX: C61 Malignant neoplasm of prostate (principal)
CPT/HCPCS: 36415; 84153; 84403

== ENCOUNTER 2022-02-05 14:57 | Outpatient (CLI) | payer MEDICARE, OTHER, SELFPAY ==
[2022-02-05 17:50] LABS: Absolute Lymphocyte Count 1.09 X10^3/uL (0.83-4.51); Basophil# 0.05 X10^3/uL; Basophil% 0.4 % (0-1); Eosinophil# 0.08 X10^3/uL; Eosinophils% 0.7 % (0-5); Hematocrit 38.1 % (40-54); Hemoglobin 12.9 g/dL (13.0-16.5); Lymphocyte # 1.09 X10^3/ul (0.83-4.51); Lymphocyte % 8.9 % (19-41); Mean Corp Hgb Conc 33.9 g/dL (32-36); Mean Corpuscular Hgb 31.5 pg (27.0-32.0); Mean Corpuscular Volume 92.9 fL (80-94); Mean Platelet Vol. 10.3 fl (6.2-12.0); Monocyte# 0.92 X10^3/uL; Monocyte% 7.6 % (0-10); NRBC Flagged by Analyzer 0 % (0-5); Neutrophil # 9.95 X10^3/uL (2.7-7.7); Neutrophil % 81.7 % (47-70); Platelet Count 332 K/mm3 (150-450); RBC Distribution Width CV 13.4 % (11.6-14.6); RBC Distribution Width SD 45.7 fl (35.1-43.9); White Blood Count 12.2 K/mm3 (4.4-11.0)
[2022-02-05 18:17] LABS: Vitamin D,25 Hydroxy 49.2 ng/mL
[2022-02-05 18:30] LABS: AST(SGOT) 16 U/L (15-37); Alanine Aminotransfer ALT/SGPT 26 U/L (16-61); Albumin, Serum 3.7 g/dL (3.2-5.0); Alkaline Phosphatase 86 U/L (45-117); Anion Gap 8 (5-15); BUN 27 mg/dL (7-18); BUN/Creat Ratio 18.5 RATIO (10-20); Chloride 102 mmol/L (98-107); Creatinine, Serum 1.46 mg/dL (0.70-1.30); EST Glomerular Filtration Rate 50 mL/min (>60); Est Glom Filt Rate - Afr Amer 61 mL/min (>60); Globulin 3.6 g/dL (2.2-4.2); Glucose 346 mg/dL (74-106); Potassium 4.6 mmol/L (3.5-5.1); Protein, Total 7.3 g/dL (6.4-8.2); Sodium Level 136 mmol/L (136-145); Thyroid Stim Hormone (TSH) 1.77 uIU/mL (0.358-3.74)
== END 2022-02-05 23:59 | disposition home or self-care (01) ==
LOC: POLAB3 15:04
PROVIDERS: PCP Family Medicine Geriatric Medicine; Visit Provider Family Medicine Geriatric Medicine
DX: I10 Essential (primary) hypertension (principal); E11.9 Type 2 diabetes mellitus without complications; F52.8 Other sexual dysfunction not due to a substance or known physiological condition; E55.9 Vitamin D deficiency, unspecified
CPT/HCPCS: 36415; 80053; 82306; 84403; 84443; 85025

== ENCOUNTER → 2022-03-21 | Outpatient (CLI) | payer MEDICARE, OTHER, SELFPAY ==
[2022-03-21 13:56] LABS: PSA,Total- Diagnostic < 0.01 ng/mL (0.0-4.0)
== END | disposition home or self-care (01) ==
LOC: LAB 12:41
PROVIDERS: PCP Family Medicine Geriatric Medicine; Referring Provider Urology; Visit Provider Urology
DX: C61 Malignant neoplasm of prostate (principal)
CPT/HCPCS: 36415; 84153

== ENCOUNTER → 2022-05-31 | Outpatient (CLI) | payer MEDICARE, OTHER, SELFPAY ==
[2022-05-31 15:07] LABS: Absolute Neutrophil Count 4.3 X10^3/uL (2.0-7.7); Basophil# 0.04 X10^3/uL; Basophil% 0.7 % (0-1); Eosinophil# 0.11 X10^3/uL; Eosinophils% 1.8 % (0-5); Hematocrit 36.9 % (40-54); Hemoglobin 12.8 g/dL (13.0-16.5); Lymphocyte % 16.3 % (19-41); Mean Corp Hgb Conc 34.7 g/dL (32-36); Mean Corpuscular Hgb 32.4 pg (27.0-32.0); Mean Corpuscular Volume 93.4 fL (80-94); Mean Platelet Vol. 9.8 fl (6.2-12.0); Monocyte# 0.69 X10^3/uL; Monocyte% 11.3 % (0-10); NRBC Flagged by Analyzer 0 % (0-5); Neutrophil # 4.26 X10^3/uL (2.7-7.7); Neutrophil % 69.4 % (47-70); Platelet Count 271 K/mm3 (150-450); RBC Distribution Width CV 13.4 % (11.6-14.6); RBC Distribution Width SD 45.8 fl (35.1-43.9); Red Blood Count 3.95 M/mm3 (4.6-6.2); White Blood Count 6.1 K/mm3 (4.4-11.0)
== END | disposition home or self-care (01) ==
LOC: POLAB3 13:05
PROVIDERS: PCP Family Medicine Geriatric Medicine; Visit Provider Family Medicine Geriatric Medicine
DX: I10 Essential (primary) hypertension (principal); E11.9 Type 2 diabetes mellitus without complications; F52.8 Other sexual dysfunction not due to a substance or known physiological condition; E55.9 Vitamin D deficiency, unspecified
CPT/HCPCS: 36415; 85025

== ENCOUNTER → 2022-06-01 | Outpatient (CLI) | payer MEDICARE, OTHER, SELFPAY ==
[2022-06-01 15:47] LABS: ALB/GLOB Ratio 1.1 RATIO (0.9-2.4); AST(SGOT) 20 U/L (15-37); Alanine Aminotransfer ALT/SGPT 23 U/L (16-61); Albumin, Serum 3.7 g/dL (3.2-5.0); Alkaline Phosphatase 88 U/L (45-117); Anion Gap 8 (5-15); BUN 24 mg/dL (7-18); BUN/Creat Ratio 14.2 RATIO (10-20); Calcium,Total 9.3 mg/dL (8.5-10.1); Chloride 105 mmol/L (98-107); Creatinine, Serum 1.69 mg/dL (0.70-1.30); EST Glomerular Filtration Rate 42 mL/min (>60); Est Glom Filt Rate - Afr Amer 51 mL/min (>60); Globulin 3.4 g/dL (2.2-4.2); Glucose 279 mg/dL (74-106); Potassium 4.8 mmol/L (3.5-5.1); Protein, Total 7.1 g/dL (6.4-8.2); Sodium Level 139 mmol/L (136-145); Thyroid Stim Hormone (TSH) 1.97 uIU/mL (0.358-3.74)
[2022-06-01 16:02] LABS: Vitamin D,25 Hydroxy 44.3 ng/mL
== END | disposition home or self-care (01) ==
LOC: LAB 14:38
PROVIDERS: PCP Family Medicine Geriatric Medicine; Visit Provider Family Medicine Geriatric Medicine
DX: I10 Essential (primary) hypertension (principal); E11.9 Type 2 diabetes mellitus without complications; F52.8 Other sexual dysfunction not due to a substance or known physiological condition; E55.9 Vitamin D deficiency, unspecified
CPT/HCPCS: 36415; 80053; 82306; 84403; 84443

== ENCOUNTER → 2022-07-24 | Outpatient (CLI) | payer MEDICARE, OTHER, SELFPAY ==
[2022-07-24 17:39] LABS: PSA,Total- Diagnostic < 0.01 ng/mL (0.0-4.0)
== END | disposition home or self-care (01) ==
LOC: BIMLAB 15:35
PROVIDERS: PCP Family Medicine Geriatric Medicine; Visit Provider Registered Nurse
DX: C61 Malignant neoplasm of prostate (principal)
CPT/HCPCS: 36415; 84153

== ENCOUNTER 2022-10-03 22:56 | Emergency (ER) | payer MEDICARE, OTHER, SELFPAY ==
[2022-10-03 22:57] VITALS: BP 188/92; PULSE 100; RESP 16; TEMP 35.6; O2SAT 97; BMI 27.3
--- NOTE | 2022-10-03 23:15 | CT_ITS ---
EXAM: CT HEAD WITHOUT INTRAVENOUS CONTRAST CLINICAL INDICATION: head injury TECHNIQUE: Multiple axial images were obtained of the head without intravenous contrast. CTDIvol = ( 44.99 ) mGy, DLP = ( 779.26 ) mGycm This CT exam was performed using one or more of the following dose reduction techniques: automated exposure control, adjustment of the mA and/or kV according to patient size, and/or use of iterative reconstruction technique. This report was created using [employer] report generation technology. COMPARISON: None. FINDINGS: BRAIN AND EXTRA-AXIAL SPACES: No acute intracranial hemorrhage, mass effect or edema. No evidence of acute cortical stroke. Periventricular small vessel ischemic change. No midline shift or hydrocephalus. Diffuse parenchymal atrophy. Posterior fossa structures are unremarkable. Basal cisterns are patent. BONES/JOINTS: Unremarkable. No discrete lytic or blastic abnormalities. VASCULATURE: Atherosclerotic calcifications of the carotid siphons. SINUSES: Unremarkable as visualized. Clear. MASTOID AIR CELLS: Visualized sinuses and mastoid air cells are clear. ORBITS: Right periorbital preseptal hematoma with evidence of adjacent laceration. Globes are intact. Retrobulbar soft tissues are normal. CT/Brain/Head without Contrast IMPRESSION: 1. No evidence of acute intracranial pathology. 2. Diffuse involutional changes and chronic ischemic small vessel white matter disease. Electronically Signed: Hemant Mendez MD at 23:45 EST ,
--- NOTE | 2022-10-03 23:15 | CT_ITS ---
EXAM: CT CERVICAL SPINE WITHOUT INTRAVENOUS CONTRAST CLINICAL INDICATION: injury TECHNIQUE: Helically acquired images were obtained of the cervical spine without intravenous contrast. 2D reformatted images were reviewed. CTDIvol = ( 23.13 ) mGy, DLP = ( 512.72 ) mGycm This CT exam was performed using one or more of the following dose reduction techniques: automated exposure control, adjustment of the mA and/or kV according to patient size, and/or use of iterative reconstruction technique. This report was created using [employer] report [employer] technology. COMPARISON: None. FINDINGS: VERTEBRAE: No evidence of acute or healing fracture or malalignment. No traumatic subluxation. No discrete lytic or blastic abnormality. Normal craniocervical junction and cervicothoracic junction. DISCS/SPINAL CANAL/NEURAL FORAMINA: Multilevel spine degenerative changes. No critical central canal stenosis or apical pneumothorax. SOFT TISSUES: Unremarkable. No prevertebral soft tissue swelling. VASCULATURE: Atherosclerotic calcifications of the internal carotid arteries of the neck. LYMPH NODES: Unremarkable. No cervical adenopathy. LUNG APICES: Unremarkable as visualized. Clear. CT/Spine Cervical without Contras IMPRESSION: No evidence of acute or healing fracture or malalignment. Electronically Signed: Hemant Mendez MD at 23:48 EST ,
--- NOTE | 2022-10-03 23:17 | EDS_ITS ---
HPI HPI - Fall History of Present Illness Chief Complaint: Fall Informant: patient and spouse/S.O. Occured/Mechanism Occurred: Today Narrative Narrative: Mechanical fall while walking the dog 45 minutes prior to arrival. States leaning over picking up dog place, when the wind scared the dog pulling him. He stumbled fell over hitting his head and his knee. Laceration to the face with b leeding controlled. Denies anticoagulation medications. Tetanus is unknown. Mild neck pain. No arm weakness or paresthesias. Denies loss of conscious. Denies nausea or vomiting. Tetanus Immunization: Unknown PFSH PFSH Medical History Back pain Cancer Dietary restriction High cholesterol History of prostate cancer History of renal disease Hypertension Insulin dependent diabetes mellitus Non-smoker Home Medications insulin detemir U-100 100 unit/mL subcutaneous solution (Levemir U-100 Insulin) 70 units subcut 0800 DIABETES 10/13/13 [History Last Taken 05/01/19] lisinopril 10 mg tablet 2.5 mg PO DAILY bp 10/13/13 [History Last Taken 05/01/19] multivitamin with folic acid 400 mcg tablet (Thera) 1 tab PO DAILY 10/13/13 [History Last Taken 05/01/19] glimepiride 4 mg tablet 4 mg PO BID DIABETES 05/02/19 [History Last Taken 05/01/19] insulin detemir U-100 100 unit/mL (3 mL) subcutaneous pen (Levemir FlexTouch U- 100 Insulin) 53 units subcut QHS DIABETES 05/02/19 [History Last Taken 05/01/19] ascorbic acid (vitamin C) 500 mg tablet 500 mg PO BID supplement 07/27/20 [History Last Taken Unknown] enzalutamide 40 mg capsule 160 mg PO DAILY cancer 07/27/20 [History Last Taken Unknown] leuprolide 7.5 mg (1 month) subcutaneous syringe (Eligard) 7.5 mg [id number] cancer/heomine repacement 07/27/20 [History Last Taken Unknown] oxycodone-acetaminophen 5 mg-325 mg tablet (Percocet) 1 tab PO Q6H PRN pain 7 days #7 tabs 03/29/21 [Rx Last Taken Unknown] rosuvastatin 20 mg tablet 20 mg PO QHS cholesterol 04/20/21 [History Last Taken Unknown] semaglutide 1 mg/dose (2 mg/1.5 mL) subcutaneous pen injector 1 mg subcut QWEEK DIABETES 04/20/21 [History Last Taken Unknown] ciprofloxacin HCl 500 mg tablet (Cipro) 500 mg PO BID #6 tabs 07/19/21 [Rx Last Taken Unknown] Allergy/AdvReac Type Severity Reaction Status Date / Time Penicillins Allergy Rash Verified 10/03/22 22:57 tadalafil [From Cialis] AdvReac PT UNSURE Verified 10/03/22 22:57 OF REACTION Surgical History History of radical prostatectomy Hx of colonoscopy Hx of cystoscopy Hx of right cataract extraction S/P cystoscopy with ureteral stent placement Social History Smoking Status: Never smoker ROS ROS ED Constitutional Constitutional ED: Denies chills, fever(s) or sweats Eyes Eyes: Denies change in vision ENT ENT ED: Denies dysphagia or sore throat Cardiovascular Cardiovascular: Denies chest pain, leg edema, palpitations or racing heartbeat Respiratory/Chest Respiratory/Chest: Denies cough, dyspnea or dyspnea on exertion Gastrointestinal Gastrointestinal: Denies abdominal pain, diarrhea, nausea or vomiting Genitourinary Genitourinary ED: Denies dysuria, hematuria or urinary frequency Musculoskeletal Musculoskeletal: Reports neck pain; Denies back pain or extremity pain Integumentary Reports wounds; Denies rash Neurologic Neurologic: Denies headache(s), paresthesias or weakness EXAM Physical Exam Const Vital Signs: 10/03/22 22:57 10/04/22 00:56 Temperature 96.0 F L Temperature Source Temporal Pulse Rate 100 Respiratory Rate 16 Respiratory Effort Normal Non-Labored Respiratory Depth Normal Respiratory Pattern Normal Blood Pressure 188/92 H Blood Pressure Mean 124 Pulse Ox 97 Oxygen Delivery Method Room Air Room Air Positive well nourished and well developed Constitutional Narrative: GCS 15. General Appearance ED: well developed and NAD HEENT Reports moist mucous membranes HEENT Narrative: No hemotympanums. Right brow 2 cm laceration with bleeding controlled. Superficial linear 3 cm laceration right maxillary, there is no active bleeding. No trismus. No bony tenderness of the face. normocephalic Eyes PERRL, EOMs intact bilaterally and conjunctivae normal Eyes Narrative: No proptosis or entrapment. General Eye ED: Yes normal appearance of both eyes Neck full ROM, no lymphadenopathy and supple Neck Narrative: Paracervical tenderness, no step-offs. General: Negative for tenderness Chest Wall Chest: Negative for tenderness Resp normal respiratory effort and normal air movement Effort and Inspection: symmetric chest movement; Negative for respiratory distress Cardio regular rate, regular rhythm and no murmurs Peripheral Pulses: pulses 2+ throughout GI normal to inspection, nondistended, normoactive bowel sounds and non-tender Palpation: Negative for guarding or rebound tenderness present Back/Spine no CVA tenderness and no thoracic nor lumbar tenderness Extremity Extremity Narrative: Upper extremities: Full range of motion without tenderness. Right lower extremity negative logroll, mild abrasion patella without tenderness. No deformities. Negative varus and valgus. Knee extensor intact. Distal pulses intact. Left lower extremity: Negative logroll. Nontender. Pulses intact distally. General Extremety ED: Negative for edema or tenderness General Extremity: Negative for edema Neuro oriented x3, CN's II-XII intact bilaterally and no sensory deficits noted Sensorium / Orientation: awake and alert Skin Skin Narrative: See above MDM MDM MDM Narrative Medical decision making narrative: Patient mechanical fall head injury with laceration above the right brow. Trauma scans head and neck were negative. Patient laceration was repaired however during reevaluation with laceration. Developed ecchymosis around upper and lower part of his eyes. Discussed this is expected and may worsen tomorrow. Wound care discussed with patient. Follow-up with PCP for suture removal. Tetanus was updated in the ED. Able to ambulate in the ED. Procedure note: Verbal consent. Normal sterile conditions. Initial LET was placed topically, additional 2 cc 1% lidocaine without epinephrine used for right supraorbital block. Good analgesia. Wound was cleansed with normal saline. Total 5, 6-0 simple interrupted nylon sutures placed good approximation of the right brow. Bacitracin placed. Patient tolerated procedure well. Radiography Diagnostic Testing: Clinical Impression(s) from Imaging Studies Brain CT 10/03/22 23:15 IMPRESSION: 1. No evidence of acute intracranial pathology. 2. Diffuse involutional changes and chronic ischemic small vessel white matter disease. Electronically Signed: Hemant Mendez MD at 23:45 EST Reading Location ID and State: [facility] / [place] Tel , Service support , Cervical Spine CT 10/03/22 23:15 IMPRESSION: No evidence of acute or healing fracture or malalignment. Electronically Signed: Hemant Mendez MD at 23:48 EST Reading Location ID and State: [address] [place] [address] Tel , Service support , Discharge Plan Triage Chief Complaint: Fall ED Provider: Jama Wilson Dx/Rx/DC Orders Clinical Impression: CHI (closed head injury), Face lacerations, Periorbital ecchymosis of right eye, Tetanus toxoid vaccination administered at current visit, Contusion of knee, right Instructions: ED Eye Contusion, ED Head Injury (Adult), ED FACIAL LACERATION Suture Tape Prescriptions: No Action lisinopril 10 MG tablet 2.5 mg PO DAILY Label Comments: heart, blood pressure Levemir U-100 Insulin 100 UNIT/ML solution 70 units subcut 0800 Label Comments: Diabetes multivitamin with folic acid [Thera] 1 TABLET tablet 1 tab PO DAILY Label Comments: multvitamin Levemir FlexTouch U-100 Insuln 100 UNITS/ML insulin pen 53 units subcut QHS glimepiride 4 MG tablet 4 mg PO BID rosuvastatin 20 mg tablet 20 mg PO QHS Eligard 7.5 MG syringe 7.5 mg SQ [id number] Label Comments: every 3 months/unsure of dose Rx Instructions: Once Every 3 months enzalutamide 40 MG capsule 160 mg PO DAILY ascorbic acid (vitamin C) 500 MG tablet 500 mg PO BID semaglutide 1 mg/dose (2 mg/1.5 mL) pen injector 1 mg subcut QWEEK oxycodone-acetaminophen [Percocet] 5-325 mg tablet 1 tab PO Q6H PRN (Reason: pain) 7 Days Qty: 7 0RF ciprofloxacin HCl [Cipro] 500 mg tablet 500 mg PO BID Qty: 6 0RF Primary Care Provider: Zack Vergara Chi Referrals: Zack Vergara Chi, MD [Primary Care Provider] - 5-7 Days Activity Restrictions/Additional Instructions: 5 sutures placed to right eyebrow. Wound care as discussed. Tylenol as needed. CT head and neck were negative. Disposition Disposition: Home, Self Care Discharge Date/Time: 10/04/22 01:44
[2022-10-03] MEDS: Lidocaine/Epi/Tetracaine 50 ML 1 APPLIC TOPICAL (23:20)
[2022-10-03] MEDS: Diphth,Pertuss(Acell),Tet Vac 0.5 ML Vial IM (23:43)
== END 2022-10-04 01:44 | disposition home or self-care (01) ==
PROVIDERS: Emergency Provider Emergency Medicine; PCP Family Medicine Geriatric Medicine; Visit Provider Emergency Medicine
DX: S01.81XA Laceration without foreign body of other part of head, initial encounter (principal); E11.9 Type 2 diabetes mellitus without complications; E78.00 Pure hypercholesterolemia, unspecified; S80.01XA Contusion of right knee, initial encounter; I10 Essential (primary) hypertension; S01.111A Laceration without foreign body of right eyelid and periocular area, initial encounter; S05.11XA Contusion of eyeball and orbital tissues, right eye, initial encounter; Z23 Encounter for immunization; W01.0XXA Fall on same level from slipping, tripping and stumbling without subsequent striking against object, initial encounter
CPT/HCPCS: 12013; 70450; 72125; 90471; 90715; 99283

== ENCOUNTER → 2022-10-31 | Outpatient (CLI) | payer MEDICARE, OTHER, SELFPAY ==
[2022-10-31 15:30] LABS: PSA,Total- Diagnostic < 0.01 ng/mL (0.0-4.0)
== END | disposition home or self-care (01) ==
LOC: BIMLAB 14:15
PROVIDERS: PCP Family Medicine Geriatric Medicine; Referring Provider Urology; Visit Provider Urology
DX: C61 Malignant neoplasm of prostate (principal)
CPT/HCPCS: 36415; 84153

== ENCOUNTER → 2022-11-27 | Outpatient (CLI) | payer MEDICARE, OTHER, SELFPAY ==
[2022-11-27 17:30] LABS: Absolute Lymphocyte Count 1.22 X10^3/uL (0.83-4.51); Absolute Neutrophil Count 4.1 X10^3/uL (2.0-7.7); Basophil# 0.05 X10^3/uL; Basophil% 0.8 % (0-1); Eosinophil# 0.17 X10^3/uL; Eosinophils% 2.7 % (0-5); Hematocrit 36.8 % (40-54); Hemoglobin 12.4 g/dL (13.0-16.5); Lymphocyte # 1.22 X10^3/ul (0.83-4.51); Lymphocyte % 19.7 % (19-41); Mean Corp Hgb Conc 33.7 g/dL (32-36); Mean Corpuscular Hgb 30.7 pg (27.0-32.0); Mean Corpuscular Volume 91.1 fL (80-94); Mean Platelet Vol. 10.3 fl (6.2-12.0); Monocyte# 0.62 X10^3/uL; NRBC Flagged by Analyzer 0 % (0-5); Neutrophil # 4.11 X10^3/uL (2.7-7.7); Neutrophil % 66.3 % (47-70); Platelet Count 314 K/mm3 (150-450); RBC Distribution Width CV 13.3 % (11.6-14.6); RBC Distribution Width SD 44.5 fl (35.1-43.9); Red Blood Count 4.04 M/mm3 (4.6-6.2); White Blood Count 6.2 K/mm3 (4.4-11.0)
[2022-11-27 17:57] LABS: Vitamin D,25 Hydroxy 47.5 ng/mL
[2022-11-27 18:05] LABS: ALB/GLOB Ratio 1.1 RATIO (0.9-2.4); AST(SGOT) 18 U/L (15-37); Alanine Aminotransfer ALT/SGPT 20 U/L (16-61); Albumin, Serum 3.8 g/dL (3.2-5.0); Alkaline Phosphatase 103 U/L (45-117); Anion Gap 9 (5-15); BUN 24 mg/dL (7-18); BUN/Creat Ratio 17.1 RATIO (10-20); Calcium,Total 9.8 mg/dL (8.5-10.1); Chloride 105 mmol/L (98-107); EST Glomerular Filtration Rate 52 mL/min (>60); Est Glom Filt Rate - Afr Amer 63 mL/min (>60); Globulin 3.5 g/dL (2.2-4.2); Glucose 247 mg/dL (74-106); Potassium 4.9 mmol/L (3.5-5.1); Protein, Total 7.3 g/dL (6.4-8.2); Sodium Level 138 mmol/L (136-145); Thyroid Stim Hormone (TSH) 2.48 uIU/mL (0.358-3.74)
== END | disposition home or self-care (01) ==
LOC: POLAB3 13:35
PROVIDERS: PCP Family Medicine Geriatric Medicine; Visit Provider Family Medicine Geriatric Medicine
DX: I10 Essential (primary) hypertension (principal); E11.65 Type 2 diabetes mellitus with hyperglycemia; E55.9 Vitamin D deficiency, unspecified
CPT/HCPCS: 36415; 80053; 82306; 84403; 84443; 85025

== ENCOUNTER → 2023-02-04 | Outpatient (CLI) | payer MEDICARE, OTHER, SELFPAY ==
[2023-02-04 15:47] LABS: PSA,Total- Diagnostic < 0.01 ng/mL (0.0-4.0)
== END | disposition home or self-care (01) ==
LOC: LAB 14:20
PROVIDERS: PCP Family Medicine Geriatric Medicine; Referring Provider Registered Nurse; Visit Provider Registered Nurse
DX: C61 Malignant neoplasm of prostate (principal)
CPT/HCPCS: 36415; 84153

== ENCOUNTER → 2023-05-08 | Outpatient (CLI) | payer MEDICARE, OTHER, SELFPAY ==
[2023-05-08 17:17] LABS: PSA,Total- Diagnostic < 0.01 ng/mL (0.0-4.0)
== END | disposition home or self-care (01) ==
LOC: BIMLAB 15:25
PROVIDERS: PCP Family Medicine Geriatric Medicine; Referring Provider Urology; Visit Provider Urology
DX: C61 Malignant neoplasm of prostate (principal)
CPT/HCPCS: 36415; 84153

== ENCOUNTER → 2023-06-03 | Outpatient (CLI) | payer MEDICARE, OTHER, SELFPAY ==
[2023-06-03 17:14] LABS: Absolute Lymphocyte Count 0.97 X10^3/uL (0.83-4.51); Absolute Neutrophil Count 3.9 X10^3/uL (2.0-7.7); Basophil# 0.05 X10^3/uL; Basophil% 0.9 % (0-1); Eosinophil# 0.11 X10^3/uL; Hemoglobin 11.7 g/dL (13.0-16.5); Lymphocyte # 0.97 X10^3/ul (0.83-4.51); Lymphocyte % 17.5 % (19-41); Mean Corp Hgb Conc 32.5 g/dL (32-36); Mean Corpuscular Hgb 30.5 pg (27.0-32.0); Mean Corpuscular Volume 93.8 fL (80-94); Monocyte# 0.52 X10^3/uL; Monocyte% 9.4 % (0-10); NRBC Flagged by Analyzer 0 % (0-5); Neutrophil # 3.85 X10^3/uL (2.7-7.7); Neutrophil % 69.7 % (47-70); Platelet Count 295 K/mm3 (150-450); RBC Distribution Width CV 13.5 % (11.6-14.6); RBC Distribution Width SD 45.5 fl (35.1-43.9); Red Blood Count 3.84 M/mm3 (4.6-6.2); White Blood Count 5.5 K/mm3 (4.4-11.0)
[2023-06-03 17:53] LABS: AST(SGOT) 15 U/L (15-37); Alanine Aminotransfer ALT/SGPT 20 U/L (16-61); Albumin, Serum 3.4 g/dL (3.2-5.0); Alkaline Phosphatase 98 U/L (45-117); Anion Gap 8 (5-15); BUN 27 mg/dL (7-18); BUN/Creat Ratio 16.8 RATIO (10-20); Chloride 104 mmol/L (98-107); Creatinine, Serum 1.61 mg/dL (0.70-1.30); EST Glomerular Filtration Rate 45 mL/min (>60); Est Glom Filt Rate - Afr Amer 54 mL/min (>60); Globulin 3.4 g/dL (2.2-4.2); Glucose 340 mg/dL (74-106); Protein, Total 6.8 g/dL (6.4-8.2); Sodium Level 137 mmol/L (136-145); Thyroid Stim Hormone (TSH) 2.28 uIU/mL (0.358-3.74)
[2023-06-03 17:54] LABS: Vitamin D,25 Hydroxy 42.5 ng/mL
== END | disposition home or self-care (01) ==
LOC: POLAB3 13:19
PROVIDERS: PCP Family Medicine Geriatric Medicine; Visit Provider Family Medicine Geriatric Medicine
DX: E11.65 Type 2 diabetes mellitus with hyperglycemia (principal); E55.9 Vitamin D deficiency, unspecified; I10 Essential (primary) hypertension
CPT/HCPCS: 36415; 80053; 82306; 84443; 85025

== ENCOUNTER → 2023-08-12 | Outpatient (CLI) | payer MEDICARE, OTHER, SELFPAY ==
[2023-08-12 17:03] LABS: PSA,Total- Diagnostic < 0.01 ng/mL (0.0-4.0)
== END | disposition home or self-care (01) ==
LOC: BIMLAB 14:36
PROVIDERS: PCP Family Medicine Geriatric Medicine; Referring Provider Urology; Visit Provider Urology
DX: C61 Malignant neoplasm of prostate (principal)
CPT/HCPCS: 36415; 84153

== ENCOUNTER → 2023-11-12 | Outpatient (CLI) | payer MEDICARE, OTHER, SELFPAY ==
[2023-11-12 18:28] LABS: PSA,Total- Diagnostic < 0.01 ng/mL (0.0-4.0)
== END | disposition home or self-care (01) ==
LOC: LAB 16:32
PROVIDERS: PCP Family Medicine Geriatric Medicine; Visit Provider Nurse Practitioner
DX: C61 Malignant neoplasm of prostate (principal)
CPT/HCPCS: 36415; 84153

== ENCOUNTER → 2023-12-02 | Outpatient (CLI) | payer MEDICARE, OTHER, SELFPAY ==
--- NOTE | 2023-12-02 14:20 | RAD_ITS ---
EXAM: XR CHEST, 2 VIEWS CLINICAL INDICATION: SOB TECHNIQUE: Frontal and lateral views of the chest. COMPARISON: May 01, 2019 FINDINGS: LUNGS AND PLEURAL SPACES: Small calcified granuloma at the right upper lobe. Pleural parenchymal scarring at the left base. No pneumothorax. No effusion. HEART: Unremarkable. Cardiac silhouette not enlarged. MEDIASTINUM: Central airways and mediastinal contour are unremarkable. BONES/JOINTS: Degenerative changes acromioclavicular joints and spine. No acute fracture. SOFT TISSUES: Unremarkable. VASCULATURE: Atherosclerotic calcifications of the nonenlarged thoracic arch. RAD/Chest PA and Lateral IMPRESSION: No acute disease. Electronically Signed: Hemant Mendez MD at 0:14 EST ,
[2023-12-02 14:27] LABS: Absolute Lymphocyte Count 1.28 X10^3/uL (0.83-4.51); Absolute Neutrophil Count 4.2 X10^3/uL (2.0-7.7); Basophil# 0.05 X10^3/uL; Basophil% 0.8 % (0-1); Eosinophil# 0.17 X10^3/uL; Eosinophils% 2.7 % (0-5); Hematocrit 36.7 % (40-54); Hemoglobin 12.2 g/dL (13.0-16.5); Lymphocyte # 1.28 X10^3/ul (0.83-4.51); Lymphocyte % 20.1 % (19-41); Mean Corp Hgb Conc 33.2 g/dL (32-36); Mean Corpuscular Hgb 30.2 pg (27.0-32.0); Mean Corpuscular Volume 90.8 fL (80-94); Mean Platelet Vol. 9.4 fl (6.2-12.0); Monocyte# 0.62 X10^3/uL; Monocyte% 9.7 % (0-10); NRBC Flagged by Analyzer 0 % (0-5); Neutrophil % 65.9 % (47-70); Platelet Count 352 K/mm3 (150-450); RBC Distribution Width CV 13.3 % (11.6-14.6); Red Blood Count 4.04 M/mm3 (4.6-6.2); White Blood Count 6.4 K/mm3 (4.4-11.0)
[2023-12-02 14:44] LABS: Vitamin D,25 Hydroxy 49.6 ng/mL
[2023-12-02 14:52] LABS: ALB/GLOB Ratio 0.9 RATIO (0.9-2.4); AST(SGOT) 12 U/L (15-37); Alanine Aminotransfer ALT/SGPT 20 U/L (16-61); Albumin, Serum 3.5 g/dL (3.2-5.0); Alkaline Phosphatase 116 U/L (45-117); Anion Gap 7 (5-15); BUN 27 mg/dL (7-18); BUN/Creat Ratio 18.5 RATIO (10-20); Calcium,Total 9.4 mg/dL (8.5-10.1); Chloride 102 mmol/L (98-107); Creatinine, Serum 1.46 mg/dL (0.70-1.30); EST Glomerular Filtration Rate 50 mL/min (>60); Est Glom Filt Rate - Afr Amer 60 mL/min (>60); Globulin 3.8 g/dL (2.2-4.2); Glucose 266 mg/dL (74-106); Potassium 4.8 mmol/L (3.5-5.1); Protein, Total 7.3 g/dL (6.4-8.2); Sodium Level 135 mmol/L (136-145); Thyroid Stim Hormone (TSH) 2.65 uIU/mL (0.358-3.74)
== END | disposition home or self-care (01) ==
PROVIDERS: PCP Family Medicine Geriatric Medicine; Referring Provider Family Medicine Geriatric Medicine; Visit Provider Family Medicine Geriatric Medicine
DX: R06.02 Shortness of breath (principal); E11.65 Type 2 diabetes mellitus with hyperglycemia; I10 Essential (primary) hypertension; E55.9 Vitamin D deficiency, unspecified
CPT/HCPCS: 36415; 71046; 80053; 82306; 84443; 85025

== ENCOUNTER → 2023-12-13 | Outpatient (CLI) | payer MEDICARE, OTHER, SELFPAY | END | disposition home or self-care (01) | LOC: PSN 12:47 | PROVIDERS: PCP Family Medicine Geriatric Medicine; Referring Provider Family Medicine Geriatric Medicine; Visit Provider Family Medicine Geriatric Medicine | DX: R06.02 Shortness of breath (principal) | CPT/HCPCS: 94060 ==

== ENCOUNTER → 2023-12-25 | Outpatient (CLI) | payer MEDICARE, OTHER, SELFPAY ==
--- NOTE | 2023-12-25 10:49 | ECHOCS_ITS ---
Reason For Study: SOB Procedure This was a 2D Doppler, Color Flow transthoracic echocardiogram. Contrast injection was performed. Exam performed in department. Left Ventricle Normal LV size. Left ventricular systolic function is normal. The estimated ejection fraction is 50 %. Stage 1 diastolic dysfunction. Mild segmental systolic dysfunction (see wall motion). Lateral Bradford : Hypokinetic. Anterior Bradford : Hypokinetic. Right Ventricle Normal RV size. Normal systolic function. Atria Normal left atrium. Normal right atrium. Mitral Valve Normal mitral valve. Tricuspid Valve Normal tricuspid valve. Mild (1+) tricuspid valve insufficiency. Pulmonary artery systolic pressure is 28 mmHg. Aortic Valve The aortic valve is not well visualized. Mild (1+) eccentric aortic valve insufficiency. Pulmonic Valve The pulmonic valve is not well visualized. Great Vessels Normal aortic root. The pulmonary artery is normal size. Inferior vena cava collapse with respiration. Pericardium/Pleural No pericardial effusion. Medication Diluted definity 4ml given slow IV push to enhance endocardial definition. MMode/2D Measurements & Calculations LVIDd: 4.0 cm IVSd: 1.1 cm Ao root diam: 3.3 cm LVIDs: 2.4 cm LVPWd: 1.1 cm RVDd: 3.5 cm FS: 40.4 % LAV(MOD-bp): 33.5 ml LVAd ap4: 36.3 cm2 SV(MOD-sp4): 64.9 ml LAV(MOD-bp) Indexed: 15.9 ml/m2 LVLd ap4: 8.6 cm LAV(MOD-sp2): 36.5 ml EDV(MOD-sp4): 125.5 ml LAV(MOD-sp4): 30.6 ml EDV(sp4-el): 130.1 ml LVAs ap4: 23.6 cm2 LVLs ap4: 7.5 cm ESV(MOD-sp4): 60.6 ml ESV(sp4-el): 63.2 ml EF(MOD-sp4): 51.7 % EF(sp4-el): 51.4 % SV(sp4-el): 66.9 ml LA A4 area: 13.1 cm2 LA dimension(2D): 3.3 cm RA A4 area: 10.7 cm2 TAPSE: 2.4 cm Time Measurements MV dec time: 0.24 sec Doppler Measurements & Calculations MV E max preston: 67.2 cm/sec Lat Peak E' Preston: 6.7 cm/sec Med Peak E' Preston: 5.8 cm/sec MV A max preston: 93.9 cm/sec E/E' lat: 10.1 E/E' med: 11.6 MV E/A: 0.72 MV dec slope: 277.4 cm/sec2 Ao V2 max: 126.0 cm/sec AI max preston: 348.0 cm/sec Ao max P.4 mmHg AI max P.4 mmHg Ao V2 mean: 94.0 cm/sec AI dec slope: 200.6 cm/sec2 Ao mean P.7 mmHg AI P1/2t: 508.0 msec Ao V2 VTI: 24.0 cm LV V1 max: 92.3 cm/sec PA V2 max: 88.3 cm/sec TR max preston: 244.4 cm/sec LV V1 max P.4 mmHg TR max P.9 mmHg ECHO/Echo Complete W/ Contrast Interpretation Summary Normal LV size. The estimated ejection fraction is 50 %. Left ventricular systolic function is normal. Stage 1 diastolic dysfunction. Mild segmental systolic dysfunction (see wall motion). Mild (1+) eccentric aortic valve insufficiency. Pulmonary artery systolic pressure is 28 mmHg. Contrast injection was performed. Ordering Physician: Zack Vergara Chi Referring Physician: Zack Vergara Chi Performed By: Anni Hills, LORA, RVT
== END | disposition home or self-care (01) ==
LOC: CVS 10:48
PROVIDERS: PCP Family Medicine Geriatric Medicine; Referring Provider Family Medicine Geriatric Medicine; Visit Provider Family Medicine Geriatric Medicine
DX: R06.02 Shortness of breath (principal)
CPT/HCPCS: 93306; Q9957; A4216; C8929

== ENCOUNTER → 2024-02-05 | Outpatient (CLI) | payer MEDICARE, OTHER, SELFPAY ==
[2024-02-05 16:29] LABS: Absolute Lymphocyte Count 1.14 X10^3/uL (0.83-4.51); Basophil# 0.04 X10^3/uL; Basophil% 0.7 % (0-1); Eosinophil# 0.14 X10^3/uL; Eosinophils% 2.3 % (0-5); Hematocrit 36.2 % (40-54); Hemoglobin 12.3 g/dL (13.0-16.5); Lymphocyte # 1.14 X10^3/ul (0.83-4.51); Lymphocyte % 18.8 % (19-41); Mean Corpuscular Hgb 30.6 pg (27.0-32.0); Mean Platelet Vol. 9.1 fl (6.2-12.0); Monocyte% 11.5 % (0-10); NRBC Flagged by Analyzer 0 % (0-5); Neutrophil # 4.03 X10^3/uL (2.7-7.7); Neutrophil % 66.2 % (47-70); Platelet Count 260 K/mm3 (150-450); Red Blood Count 4.02 M/mm3 (4.6-6.2); White Blood Count 6.1 K/mm3 (4.4-11.0)
[2024-02-05 16:56] LABS: Anion Gap 7 (5-15); BUN 24 mg/dL (7-18); Calcium,Total 9.3 mg/dL (8.5-10.1); Chloride 107 mmol/L (98-107); Creatinine, Serum 1.33 mg/dL (0.70-1.30); EST Glomerular Filtration Rate 55 mL/min (>60); Est Glom Filt Rate - Afr Amer 67 mL/min (>60); Glucose 285 mg/dL (74-106); Potassium 4.5 mmol/L (3.5-5.1); Sodium Level 138 mmol/L (136-145)
== END | disposition home or self-care (01) ==
LOC: LAB 15:25
PROVIDERS: PCP Family Medicine Geriatric Medicine; Referring Provider Internal Medicine Cardiovascular Disease; Visit Provider Internal Medicine Cardiovascular Disease
DX: R06.09 Other forms of dyspnea (principal); R93.1 Abnormal findings on diagnostic imaging of heart and coronary circulation; N13.5 Crossing vessel and stricture of ureter without hydronephrosis
CPT/HCPCS: 36415; 80048; 85025

== ENCOUNTER 2024-02-18 06:56 | Day surgery (SDC) | payer MEDICARE, OTHER, SELFPAY ==
[2024-02-17 08:33] VITALS: BMI 27.5
--- NOTE | 2024-02-18 09:04 | CL.D_ITS ---
Patient Name: RENATA SOUZA Study Date: 02/18/2024 Performing: Eyad Obregon MD Ht: 72 inches 182.88 cm : 1945 Wt: 203 lbs 92.08 kg Age: 78 Gender: male BSA: 2.14 PROCEDURE(S) PERFORMED [id number])LHC/COR/LV CLINICAL PROFILE AND INDICATIONS Indications: Suspected CAD Heart Failure: None Stress/Imaging Stress/Image Study Performed: No CAD Presentations: Other: fatigue CONCLUSIONS Severe ostial and distal left main coronary artery stenosis and ostial circumflex artery stenosis. Mild apical hypokinesis on echocardiogram RECOMMENDATIONS Surgery consult for coronary revascularization DESCRIPTION OF PROCEDURE The patient arrived to the procedure lab. The risks and benefits of the procedure as well as a full description of our services here and current unavailability of surgical backup were fully explained to the patient and/or their significant other prior to the catheterization. The Timeout was completed, verifying the correct patient and procedure. The patient's procedural site was prepped and draped in the usual fashion. Local anesthetic was given subcutaneously to right radial region with Lidocaine 2%. Using a modified Seldinger technique, arterial access was obtained via the right radial artery, a 6Fr sheath was inserted. Left Coronary Artery selective angiography was performed in multiple views using a 5 Fr. 4.0 Bath catheter. Right Coronary Artery selective angiography was then performed in multiple views using a 5 Fr. JR 5 catheter. Left Ventriculography was performed in SORIANO projection using a 5 Fr. Pigtail catheter. LV to AO pullback pressures were then recorded.The arterial sheath was pulled and a TR Band was applied for hemostasis CORONARY ANGIOGRAPHY DOMINANCE: Right Dominant LEFT HEART ASSESSMENT Left Ventricular Ejection Fraction: by LV Gram 50 % Apical Hypokinesis - Moderate Depressed Left Ventricular systolic function LEFT MAIN: Calcified vessel with ostial 80% stenosis and 95% distal stenosis. LEFT ANTERIOR DESCENDING ARTERY: Mild luminal irregularities less than 30% CIRCUMFLEX ARTERY: Mildly calcified with ostial 80% stenosis and then 2 obtuse marginal branches and an AV groove branch noted. RIGHT CORONARY ARTERY: Dominant right coronary artery with mild calcification and mild diffuse nonobstructive disease present. COMPLICATIONS No Complications PROCEDURE MEDICATIONS Versed 1 mg IV Fentanyl 50 mcg IV Oxygen: 2 L/min via nasal cannula Aspirin (325mg) 1 Tabs PO @ 02/18/2024 07:15:39 Heparin given IA 02/18/2024 08:08:59 IV Bolus: .9 NaCl 100 ml total 02/18/2024 08:37:58 SUMMARY OF HEMODYNAMIC DATA Time AIR REST ECG 07:22:51 AO 119/65 (89) SA 08:12:53 LV 115/10, 23 08:25:41 LV 113/11, 23 08:25:49 LV 108/19, 25 08:27:03 LVp 101/14, 24 08:27:08 AOp 103/58 (78) 08:27:15 Signed By Eyad Obregon MD On 02/18/2024 09:04:04 Eyad Obregon MD
== END 2024-02-18 16:00 | disposition home or self-care (01) ==
LOC: CLSP 06:58
PROVIDERS: PCP Family Medicine Geriatric Medicine; Referring Provider Internal Medicine Cardiovascular Disease; Visit Provider Internal Medicine Cardiovascular Disease
DX: I25.10 Atherosclerotic heart disease of native coronary artery without angina pectoris (principal); Z79.4 Long term (current) use of insulin; E11.9 Type 2 diabetes mellitus without complications; Z79.899 Other long term (current) drug therapy; Z79.82 Long term (current) use of aspirin; Z79.84 Long term (current) use of oral hypoglycemic drugs; I10 Essential (primary) hypertension; E78.5 Hyperlipidemia, unspecified; I70.8 Atherosclerosis of other arteries
CPT/HCPCS: 93458; 99152; 99153; J7040; Q9967; C1769; C1894

== ENCOUNTER 2024-02-28 15:45 | Inpatient (IN) | payer MEDICARE, OTHER, SELFPAY ==
[2024-02-28 16:40] VITALS: BMI 27.7
[2024-02-28 16:50] VITALS: BP 106/54; PULSE 94; RESP 18; TEMP 36.4; O2SAT 96
[2024-02-28] MEDS: Glimepiride 4 MG Tablet PO (17:30)
[2024-02-28 20:30] VITALS: O2SAT 98
[2024-02-28] MEDS: Ascorbic Acid 500 MG Tablet PO (21:58)
[2024-02-28 21:59] VITALS: BP 131/63; PULSE 86
[2024-02-28] MEDS: Atorvastatin Calcium 40 MG Tablet PO (21:59)
[2024-02-28] MEDS: Metoprolol Tartrate 25 MG Tablet PO (21:59)
[2024-02-28] MEDS: Senna/Docusate Sodium 1 Tablet 2 TABLET PO (21:59)
[2024-02-28] MEDS: ENZALUTAMIDE 40 MG TABLET 160 MG PO (22:00)
[2024-02-28] MEDS: Insulin Lispro 100 UNIT/ML INSULN.PEN SC (22:02)
[2024-02-28] MEDS: Insulin Glargine-YFGN 100 UNIT/ML Pen 48 UNIT SC (22:03)
[2024-02-28 22:10] VITALS: BP 131/63; PULSE 86; RESP 18; TEMP 36.6; O2SAT 98
[2024-02-28 22:29] LABS: Bedside Glucose 229 mg/dL (74-106)
[2024-02-28] MEDS: oxyCODONE 5 MG Tablet PO (23:37)
[2024-02-29] VITALS (8 sets, daily range): BP systolic 110–128; BP diastolic 56–61; PULSE 74–83; RESP 16–18; TEMP 36.1–36.7; O2SAT 94–99; BMI 27.6
[2024-02-29] MEDS: Acetaminophen 500 MG Tablet 1000 MG PO ×3 (02:52→22:32)
[2024-02-29 05:41] LABS: Bedside Glucose 126 mg/dL (74-106)
[2024-02-29 06:51] LABS: Basophil# 0.05 X10^3/uL; Hematocrit 28.4 % (40-54); Hemoglobin 9.2 g/dL (13.0-16.5); Mean Corp Hgb Conc 32.4 g/dL (32-36); Mean Corpuscular Hgb 28.4 pg (27.0-32.0); Mean Corpuscular Volume 87.7 fL (80-94); Mean Platelet Vol. 9.3 fl (6.2-12.0); Monocyte# 1.07 X10^3/uL; NRBC Flagged by Analyzer 0 % (0-5); POSITIVE COUNT YES; POSITIVE MORPHOLOGY YES; RBC Distribution Width CV 16.8 % (11.6-14.6); RBC Distribution Width SD 52.6 fl (35.1-43.9); Red Blood Count 3.24 M/mm3 (4.6-6.2)
[2024-02-29 07:03] LABS: Differential Indicated SCAN CRITERIA MET
[2024-02-29 07:16] LABS: ALB/GLOB Ratio 0.8 RATIO (0.9-2.4); AST(SGOT) 14 U/L (15-37); Alanine Aminotransfer ALT/SGPT 8 U/L (16-61); Albumin, Serum 2.9 g/dL (3.2-5.0); Alkaline Phosphatase 64 U/L (45-117); Anion Gap 3 (5-15); BUN 38 mg/dL (7-18); BUN/Creat Ratio 28.8 RATIO (10-20); Calcium,Total 8.8 mg/dL (8.5-10.1); Chloride 101 mmol/L (98-107); Creatinine, Serum 1.32 mg/dL (0.70-1.30); EST Glomerular Filtration Rate 56 mL/min (>60); Est Glom Filt Rate - Afr Amer 68 mL/min (>60); Estimated Creatinine Clearance 52.26 ml/min; Globulin 3.5 g/dL (2.2-4.2); Glucose 110 mg/dL (74-106); Magnesium 2.3 mg/dL (1.6-2.6); Phosphorus 3.3 mg/dL (2.5-4.9); Potassium 3.9 mmol/L (3.5-5.1); Protein, Total 6.4 g/dL (6.4-8.2); Sodium Level 136 mmol/L (136-145)
[2024-02-29 07:29] LABS: Eosinophil 3 % (0-5); Lymphocyte 20 % (19-41); Monocyte 10 % (0-10); Myelocyte 1 % (0-0); Neutrophil-Band 3 % (0-5); Neutrophil-Segmented 63 % (47-70); Total Cells Counted 100 (MANUAL DIFF)
[2024-02-29 07:30] LABS: Platelet Estimate ADEQUATE (ADEQ); Red Cell Morphology NORM C+C NORMAL (NORM C&C)
[2024-02-29 07:31] LABS: Scan Smear per Review Criteria MANUAL DIFF
--- NOTE | 2024-02-29 07:46 | NURSING ---
Patient rested well during the night and compliant with call cheng usage. Very cooperative with staff.
[2024-02-29 07:47] LABS: Neutrophil # 5.96 X10^3/uL (2.7-7.7)
[2024-02-29] MEDS: Furosemide 40 MG Tablet PO (08:11)
[2024-02-29] MEDS: Metoprolol Tartrate 25 MG Tablet PO ×2 (08:12→22:35)
[2024-02-29] MEDS: Ascorbic Acid 500 MG Tablet PO ×2 (08:12→22:36)
[2024-02-29] MEDS: Multivitamins,Therapeutic Tablet 1 TABLET PO (08:13)
[2024-02-29] MEDS: Glimepiride 4 MG Tablet PO ×2 (08:13→17:29)
[2024-02-29] MEDS: Aspirin E.C. 81 MG Tablet PO (08:13)
[2024-02-29] MEDS: Senna/Docusate Sodium 1 Tablet 2 TABLET PO (08:13)
[2024-02-29] MEDS: Enoxaparin 40 MG/0.4 ML Syringe SC (09:06)
--- NOTE | 2024-02-29 09:43 | HP.PCM_ITS ---
HPI - General General Date of Admission: 02/28/24 Date of Service: 02/29/24 HPI Narrative RENATA SOUZA, is a 78 YO M with a PMH of coronary artery disease, history of prostate cancer, hyperlipidemia, diabetes mellitus type 2 and hypertension who underwent CABG x 4 vessels on 02/21/[address] Winters. Post op course was complicated by ARF that resolved prior to [place]. PT recommended acute inpt rehab at [place]. He was transferred to the acute inpatient rehab unit at [facility] on 02/28/2024 for 3 hours of therapy daily to restore function/independence at or near his level prior to CABG. He had no post operative AF while at [facility]. HGBA1C at [facility] was 8.0. LDL was 58 and the HDL was 33. Triglycerides were elevated at 281. Echocardiogram prior to surgery showed mildly reduced left ventricular systolic function with an EF of 51%. He has grade 1 diastolic dysfunction and 1+ AI. All documentation from [facility] was personally reviewed and the EMR at [facility] was also reviewed. He is a patient of Dr. Vergara and also follows with the [facility]. All lab drawn this AM was personally reviewed. White blood cell count is normal at 9. Hemoglobin is 9.2 which is within the range it was the past few days at [facility]. Platelet count could not be determined due to clumping. Sodium is 136 and the potassium is 3.9. BUN is 38 and the creatinine is stable at 1.32. The last creatinine at [facility] was 1.3. 1.3 is actually good for him. Magnesium is 2.3 and the phosphorus is within normal limits. LFTs are within normal limits. [facility] Medical History (Updated 02/29/24 @ 12:[address] Ce Hancock, ) Abnormal echocardiogram Back pain Chronic renal failure, stage 3 (moderate) DDD (degenerative disc disease) Hyperlipidemia Hypertension Insulin dependent diabetes mellitus Prostate cancer metastatic to bone Segmental and somatic dysfunction of cervical region Segmental and somatic dysfunction of lumbar region Segmental and somatic dysfunction of pelvic region Segmental and somatic dysfunction of thoracic region Ureteral obstruction, left Home Medications multivitamin with folic acid 400 mcg tablet (Thera) 1 tab PO DAILY supplement 10/13/13 [History Last Taken 05/01/19] glimepiride 4 mg tablet 4 mg PO BID DIABETES 05/02/19 [History Last Taken 05/01/19] ascorbic acid (vitamin C) 500 mg tablet 500 mg PO BID supplement 07/27/20 [History Last Taken Unknown] rosuvastatin 20 mg tablet 20 mg PO QHS cholesterol 04/20/21 [History Last Taken 02/27/24] semaglutide 1 mg/dose (2 mg/1.5 mL) subcutaneous pen injector 1 mg subcut QWEEK DIABETES 04/20/21 [History Last Taken 02/24/24] enzalutamide 40 mg capsule 160 mg PO DAILY cancer 01/06/24 [History Last Taken 02/27/24] leuprolide 7.5 mg (1 month) subcutaneous syringe (Eligard) 22.5 mg subcut .V2COLGOG cancer/heomine repacement 01/06/24 [History Last Taken Unknown] albuterol sulfate 90 mcg/actuation aerosol inhaler 2 puff inhalation BID PRN shortness of breath or wheezing 02/05/24 [History Last Taken Unknown] insulin detemir U-100 100 unit/mL subcutaneous solution (Levemir U-100 Insulin) 48 unit subcut .HS DIABETES 02/05/24 [History Last Taken Unknown] aspirin 81 mg tablet,delayed release (Adult Aspirin Regimen) 81 mg PO DAILY heart health #90 tabs 02/18/24 [Rx Last Taken 02/28/24] acetaminophen 500 mg tablet 1,000 mg PO Q8 PRN pain 02/28/24 [History Last Taken Unknown] furosemide 40 mg tablet 40 mg PO DAILY diuretic 02/28/24 [History Last Taken Unknown] metoprolol tartrate 25 mg tablet 25 mg PO BID blood pressure 02/28/24 [History Last Taken 02/28/24] oxycodone 5 mg tablet 5 mg PO Q6H PRN pain (scale score 7-10) 02/28/24 [History Last Taken 02/28/24] Allergy/AdvReac Type Severity Reaction Status Date / Time Penicillins Allergy Rash Verified 02/06/24 15:49 tadalafil [From Cialis] AdvReac PT UNSURE Verified 02/06/24 15:49 OF REACTION Family History unable to obtain Surgical History (Updated 02/29/24 @ 10:[address] Ce Hancock, DO) History of radical prostatectomy Hx of colonoscopy Hx of cystoscopy Hx of right cataract extraction S/P cystoscopy with ureteral stent placement Social History (Updated 02/29/24 @ 12:[address] Ce Hancock DO) household members: spouse housing: [facility] number of children: 3 current occupational status: retired Smoking Status: Never smoker alcohol intake: never substance use type: does not use Prior Cardiac Testing/Procedures Prior Cardiac Testing/Procedures: Echocardiogram (Transthoracic echocardiogram 1 12/25/2023 showed an ejection fraction of 50%, stage I diastolic dysfunction, 1+ AI and a hypokinetic apex.), Cardiac Angiogram (02/18/[address] Obregon. Showing severe ostial and distal left main coronary artery stenosis and ostial circumflex artery stenosis with mild apical hypokinesis.) and CABG (02/21/2024 at [facility] by Dr. Winters) ROS Review of Systems ROS Unobtainable: Denies due to encephalopathy, due to endotracheal tube, due to mental condition or due to mental status Constitutional Constitutional: Reports fatigue and weakness; Denies anorexia, change in weight, chills, fever(s) or night sweats Eyes Eyes: Denies blurry vision, change in vision, eye pain or loss of vision ENT HEENT: Denies abnormal hearing, dysphagia, headache(s), hearing loss, nasal congestion or sore throat Cardiovascular Cardiovascular: Reports dyspnea on exertion; Denies chest pain, edema, lightheadedness, orthopnea, palpitations, paroxysmal nocturnal dyspnea or syncope Respiratory/Chest Respiratory/Chest: Reports cough and shortness of breath with exertion; Denies dyspnea, shortness of breath at rest or wheezing Gastrointestinal Gastrointestinal: Denies abdominal pain, constipation, diarrhea, dyspepsia, hematemesis, hematochezia, nausea or vomiting Genitourinary Genitourinary: Reports nocturia and urinary frequency; Denies dysuria, hematuria, urinary hesitancy, urinary incontinence or urinary urgency Musculoskeletal Musculoskeletal: Reports back pain; Denies joint pain, joint swelling or neck pain Integumentary Integumentary: Denies changing lesions, jaundice, pruritus or rash Neurologic Neurologic: Reports weakness; Denies abnormal speech, behavior changes, confusion, disequilibrium, dizziness, focal weakness, headache(s), memory loss, paresthesias, seizures or tremor(s) Psychiatric Psychiatric: Denies anxiety, depression, homicidal ideation or suicidal ideation Endocrine Endocrinology: Denies change in body appearance, polydipsia or polyuria Hematologic/Lymphatic Hematologic/Lymphatic: Denies easy bleeding, easy bruising or lymphadenopathy Allergic/Immunologic Allergic/Immunologic: Denies rhinitis, eczemia or asthma Vital Signs Vital Signs Vital Signs: 02/28/24 16:50 02/28/24 20:43 02/28/24 21:59 Temperature 97.5 F L Temperature Source Temporal Pulse Rate 94 86 Pulse Strength Normal (2+) Respiratory Rate 18 Respiratory Effort Respiratory Depth Respiratory Pattern Blood Pressure 106/54 L 131/63 H Blood Pressure Mean 71 Blood Pressure Source Monitor Blood Pressure Position Sitting Blood Pressure Location Left Arm Pulse Ox 96 Oxygen Delivery Method Room Air 02/28/24 22:10 02/28/24 20:30 02/29/24 08:12 Temperature 97.9 F Temperature Source Temporal Pulse Rate 86 77 Pulse Strength Respiratory Rate 18 Respiratory Effort Normal Non-Labored Respiratory Depth Normal Respiratory Pattern Normal Blood Pressure 131/63 H 116/56 L Blood Pressure Mean 85 Blood Pressure Source Monitor Blood Pressure Position Semi-Fowlers Blood Pressure Location Left Arm Pulse Ox 98 98 Oxygen Delivery Method Room Air Room Air 02/29/24 08:17 02/29/24 09:13 02/29/24 09:24 Temperature 97 F L Temperature Source Temporal Pulse Rate 77 Pulse Strength Normal (2+) Respiratory Rate 16 Respiratory Effort Normal Non-Labored Respiratory Depth Respiratory Pattern Blood Pressure 116/56 L Blood Pressure Mean 76 Blood Pressure Source Monitor Blood Pressure Position Semi-Fowlers Blood Pressure Location Left Arm Pulse Ox 96 Oxygen Delivery Method Room Air Room Air Weight Weight: 203 lb 7.787 oz Body Mass Index (BMI) 27.6 Physical Exam Const alert, oriented x3 and no apparent distress Constitutional Narrative: Making good eye contact, appropriate. Affect is flat. Not much facial expression. Denies feeling depressed. General Appearance: cooperative, comfortable and well kempt HEENT HEENT Narrative: Mildly dry MM Eyes conjunctivae normal and no scleral icterus Eyes Narrative: No discharge from the eyes General Eye: normal appearance of both eyes Neck no lymphadenopathy, supple, no JVD and no carotid bruits Neck Narrative: He has a bandage on the right neck and some bruising secondary to central line placement. Chest Chest: symmetrical chest wall rise Resp normal respiratory effort, no use of accessory muscles and clear to auscultation bilaterally Resp Narrative: Not tachypneic and no conversational dyspnea. Tends to splint the respirations, because it increases CP. When he did get a deep breath the lungs were CTA with excellent air exchange. Effort and Inspection: able to speak in complete sentences Cardio regular rate, regular rhythm, S1 normal heart sound, S2 normal heart sound, no murmurs, no rub and no gallops Cardio Narrative: no ectopy GI normal to inspection, nondistended, normoactive bowel sounds, soft to palpation and non-tender GI Narrative: No guarding with palpation. Extremity no clubbing, cyanosis or edema and no calf tenderness Extremity Narrative: Negative Pierce's and Antonieta's signs Skin no jaundice and no mottling Skin Narrative: No rashes, no skin breakdown. The sternal incision is intact with no dehiscence, no raymon-incisional erythema and no significant swelling around the incision. The abd wounds have steri strips present and have a small amount of serosanguineous drainage. Neuro oriented x3, CN's II-XII intact bilaterally and no focal motor deficits Psych mental status grossly normal, thought process normal, speech normal and activity/motor behavior normal Psych Narrative: Appropriate, making good eye contact. Able to stay on topic and focus. No flight of ideas. Does not appear anxious or depressed. Flat affect Appearance: grossly normal, appropriate and well kempt Results Lab / Micro Data 02/29/24 06:09 02/29/24 06:09 Labs: Laboratory Results - last 24 hr 02/28/24 21:58: POC Glucose 229 H 02/29/24 05:20: POC Glucose 126 H 02/29/24 06:09: WBC 9.0, RBC 3.24 L, Hgb 9.2 L, Hct 28.4 L, MCV 87.7, MCH 28.4, MCHC 32.4, RDW Std Deviation 52.6 H, RDW Coeff of David 16.8 H, Plt Count , MPV 9.3, Immature Gran % (Auto) ENGINEER THIRD ASSISTANT, Neut % (Auto) ENGINEER THIRD ASSISTANT, Lymph % (Auto) ENGINEER THIRD ASSISTANT, [place] % (Auto) ENGINEER THIRD ASSISTANT, Eos % (Auto) ENGINEER THIRD ASSISTANT, Baso % (Auto) ENGINEER THIRD ASSISTANT, Absolute Neuts (auto) 6.0, Abso lute Lymphs (auto) 1.80, Total Counted 100, Neutrophils % (Manual) 63, Band Neutrophils % 3, Lymphocytes % (Manual) 20, Monocytes % (Manual) 10, Eosinophils % (Manual) 3, Myelocytes % 1 H, Nucleated RBC % 0, Diff Path Review May foll, Platelet Estimate ADEQUATE, RBC Morphology NORM C+C, Sodium 136, Potassium 3.9, Chloride 101, Carbon Dioxide 32.0, Anion Gap 3 L, BUN 38 H, Creatinine 1.32 H, Estim Creat Clear Calc 52.26, Est GFR (MDRD) Af Amer 68, Est GFR (MDRD) Non-Af 56 L, BUN/Creatinine Ratio 28.8 H, Glucose 110 H, Calcium 8.8, Phosphorus 3.3, Magnesium 2.3, Total Bilirubin 0.50, AST 14 L, ALT 8 L, Alkaline Phosphatase 64, Total Protein 6.4, Albumin 2.9 L, Globulin 3.5, Albumin/Globulin Ratio 0.8 L Assessment & Plan Assessment/Plan (1) Physical debility: (2) S/P CABG x 4: (3) Acute on chronic anemia: (4) Insulin dependent diabetes mellitus: (5) Chronic renal failure, stage 3 (moderate): QUALIFIERS: Chronic kidney disease stage 3 subtype: unspecified whether 3a or 3b Qualified Code(s): N18.30 - Chronic kidney disease, stage 3 unspecified (6) Hyperlipidemia: QUALIFIERS: Hyperlipidemia type: mixed hyperlipidemia Qualified Code(s): E78.2 - Mixed hyperlipidemia (7) Hypertension: QUALIFIERS: Hypertension type: primary hypertension Qualified Code(s): I10 - Essential (primary) hypertension PLAN: Plan PLAN PT for gait stability OT for ADL's ST for evaluation Analgesics as needed Bowel protocol Fall precautions Assess for Anxiety/Depression GI prophylaxis -not necessary at this time. He denies any history of peptic ulcer disease or GERD and has no nausea/vomiting/epigastric pain. DVT prophylaxis with enoxaparin 40 mg subcu daily Follow up with PCP, cardiology and Dr. Winters following DC from Rehab AM lab including CMP, CBC, Mag and Phos - all personally reviewed. Blood sugar has been high at at bedtime last night and high at lunch. He is on a sliding scale. Previously taking Levemir 80 units BID. Will continue Glargine for now along with Ozempic (pt brought his own), Amaryl 4 mg p.o. twice daily. The dietitian entered a diet of 2000-calorie carb consistent, heart healthy. Monitor BS AC and HS. Change the SSI to TID AC. 60 minutes spent reviewing past diagnostic tests, lab results, vital sign trends, medical history, medications, all additional paperwork sent by the previous hospital, and ordering medications, examining the the patient and completing documentation.
[2024-02-29] MEDS: Insulin Lispro 100 UNIT/ML INSULN.PEN SC ×2 (12:04→17:29)
[2024-02-29 12:05] LABS: Bedside Glucose 225 mg/dL (74-106)
--- NOTE | 2024-02-29 12:55 | PCM.RU.PYE ---
Admission Information Primary Diagnosis:: Debility secondary to recent CABG x 4 vessels Status Changes from Prescreening?: No changes Identified Actual Problem List:: Skin Intergrity, Pain, ALteration in Cmfrt, Alteration in Sleep, Mobility Impaired, Self Care Deficit, Diabetes, Hyperglycemia, Alteration/ Air Exchange and Alteration-Leisure Activ. Potential Problem List:: DVT, Bleeding, Infection, UTI, Aspiration, Falls, Skin Integrity and Depression Risk of Complications DVT: LMWH and PAT Hose Bleeding: Monitor Lab Values, Nursing to Teach Precautions for anti-coagulation therapy., Wound, if applicable, to be assessed every shift. and Stroke patients assessed for lethargy or change in status. Infection: Clinical Staff to Monitor for S/S of infection: and S/S of infection include fever, redness, warmth, etc. Urinary Tract Infection: Monitor for frequency, burning, discomfort, or incontinence. and Nursing will obtain urine sample for urinalysis and C&S when ordered. Aspiration: Clinical staff will monitor for coughing, drooling, congestion., Speech will evaluate swallowing and dsyphasia. and Nursing will monitor patient swallowing during meals. Falls: Patient will be evaluated for Fall Precautions and Patient will be placed on Fall Precautions as indicated per protocol. Skin Breakdown: Nursing will assess skin daily using assessment tool. and Nursing will place on Skin Breakdown Precautions as indicated. Pain: Clinical staff will assess patient's pain level per protocol., Medications will be given, if needed, and the pain level reassessed. and Other methods: Massage, distraction, decrease stimulus, etc. used PRN. Plan of Care Patient requires physician specializing in physical medicine and rehab oversight to provide close medical supervision of rehab issues including: Pain Management, Sleep Problems, Bowel and Bladder, Medical and co-morbidity Management, DVT prophylaxis, Rehabilitation Leadership and Coordination of treatment team Patient needs Physical Therapy: For a minimum of 1 hour and At least 5 out of 7 days Patient needs Physical Therapy to improve:: Mobility, Strengthening, Transfers, Stretching, ROM, Endurance, Stairs, Gait and Balance Patient needs Occupational Therapy: For a minimum of 1 hour and At least 5 out of 7 days Patient needs Occupational Therapy to improve ADL's incl.: Eating, Grooming, Bathing, Dressing, Toileting, Toilet transfers, Community Reintegration, Higher functioning activities, Household tasks, Adaptive Equipment, Splinting and Other activities as determined Patient requires 24/ Rehabilitation Nursing for: Pain Issues, Identifying and preventing risk factors, Monitoring and reporting current medical conditions, Assisting with ambulation, transfer, and all ADL's, Teaching patients about disease process and medications, Family teaching, Providing safe environment, Bowel and Bladder Issues, Skin integrity and Medication Management Patient needs Rand Butting Machine Operator/ Case Management for: Discharge Planning, Arranging Home Equipment or Services and Family Interventions Patient needs Dietary and Nutrition Services for: Adequate Nutrition, Nutritional Supplements and Nutritional Education Goals Goals Patient will remain: free from falls Patient will perform eating at: MOD I level of assist. Patient will perform bed mobility at: MOD I level of assist. Patient will complete transfers from bed to chair at: MOD I level of assist. Patient will ambulate: - (200 feet with least restrictive device on various surfaces at mod to allow patient to return home to the community) Patient will complete upper body dressing at: MOD I level of assist. Patient will complete lower body dressing at: MOD I level of assist. Patient will complete toilet transfer at: MOD I level of assist. Patient will complete toileting at: MOD I level of assist. Patient will perform bathing at: MOD I level of assist. Patient will perform Tub/Shower transfer at: - (Supervision/set up) Patient will complete grooming at: MOD I level of assist. Patient will achieve: - (1 curb step with least restrictive device at contact-guard assist to allow access to the community.) Patient will have pain level of: of 3 or less Patient's skin will: remain intact Patient will receive: adequate nutrition. Discharge Planning Pt Prognosis for Sig. Practical Improv. w/in Reasonable Time: Good Estimated Length of stay (days): 14 Anticipated D/C Destination: Home with Home Health Was Preadmission Assessment Accurate?: Yes
[2024-02-29 17:35] LABS: Bedside Glucose 160 mg/dL (74-106)
[2024-02-29] MEDS: oxyCODONE 5 MG Tablet PO (22:32)
[2024-02-29] MEDS: Insulin Glargine-YFGN 100 UNIT/ML Pen 48 UNIT SC (22:34)
[2024-02-29] MEDS: Atorvastatin Calcium 40 MG Tablet PO (22:35)
[2024-02-29] MEDS: guaiFENesin 600 MG Tablet PO (22:36)
[2024-02-29] MEDS: ENZALUTAMIDE 40 MG TABLET 160 MG PO (22:37)
[2024-02-29 22:41] LABS: Bedside Glucose 217 mg/dL (74-106)
[2024-03-01 00:46] LABS: Bedside Glucose 162 mg/dL (74-106)
[2024-03-01 01:56] VITALS: BP 98/51; PULSE 79; RESP 18; TEMP 36.6; O2SAT 99
[2024-03-01] MEDS: Enoxaparin 40 MG/0.4 ML Syringe SC (05:32)
[2024-03-01] MEDS: Acetaminophen 500 MG Tablet 1000 MG PO ×2 (05:33→16:01)
[2024-03-01 05:37] VITALS: BMI 27.5
[2024-03-01 07:16] LABS: Bedside Glucose 73 mg/dL (74-106)
[2024-03-01 07:35] VITALS: BP 124/64; PULSE 78; RESP 18; TEMP 36.3; O2SAT 99
[2024-03-01 08:44] VITALS: PULSE 78
[2024-03-01] MEDS: Furosemide 40 MG Tablet PO (08:44)
[2024-03-01] MEDS: Multivitamins,Therapeutic Tablet 1 TABLET PO (08:44)
[2024-03-01] MEDS: Senna/Docusate Sodium 1 Tablet 2 TABLET PO ×2 (08:44→21:17)
[2024-03-01] MEDS: Metoprolol Tartrate 25 MG Tablet PO ×2 (08:44→21:17)
[2024-03-01] MEDS: Aspirin E.C. 81 MG Tablet PO (08:45)
[2024-03-01] MEDS: Glimepiride 4 MG Tablet PO ×2 (08:45→16:02)
[2024-03-01] MEDS: guaiFENesin 600 MG Tablet PO ×2 (08:45→21:17)
[2024-03-01] MEDS: Ascorbic Acid 500 MG Tablet PO ×2 (08:45→21:17)
[2024-03-01 11:48] LABS: Bedside Glucose 213 mg/dL (74-106)
[2024-03-01] MEDS: Insulin Lispro 100 UNIT/ML INSULN.PEN SC ×2 (12:07→17:24)
[2024-03-01 12:25] VITALS: O2SAT 99
[2024-03-01 16:53] LABS: Bedside Glucose 177 mg/dL (74-106)
[2024-03-01 20:00] VITALS: BP 144/69; PULSE 86; RESP 18; TEMP 36.4; O2SAT 100
[2024-03-01 21:17] VITALS: BP 144/69; PULSE 86
[2024-03-01] MEDS: ENZALUTAMIDE 40 MG TABLET 160 MG PO (21:17)
[2024-03-01] MEDS: Atorvastatin Calcium 40 MG Tablet PO (21:17)
[2024-03-01] MEDS: oxyCODONE 5 MG Tablet PO (21:19)
[2024-03-01] MEDS: Insulin Glargine-YFGN 100 UNIT/ML Pen 48 UNIT SC (21:22)
[2024-03-01 22:39] LABS: Bedside Glucose 220 mg/dL (74-106)
[2024-03-02] VITALS (7 sets, daily range): BP systolic 129–145; BP diastolic 58–59; PULSE 81–88; RESP 17–18; TEMP 36.4–36.6; O2SAT 96–99; BMI 27.6
[2024-03-02] MEDS: oxyCODONE 5 MG Tablet PO ×3 (03:20→15:54)
[2024-03-02 03:30] LABS: Bedside Glucose 81 mg/dL (74-106)
[2024-03-02] MEDS: Enoxaparin 40 MG/0.4 ML Syringe SC (04:58)
[2024-03-02 07:29] LABS: Bedside Glucose 96 mg/dL (74-106)
[2024-03-02] MEDS: Multivitamins,Therapeutic Tablet 1 TABLET PO (08:24)
[2024-03-02] MEDS: Glimepiride 4 MG Tablet PO ×2 (08:24→17:01)
[2024-03-02] MEDS: Aspirin E.C. 81 MG Tablet PO (08:24)
[2024-03-02] MEDS: Ascorbic Acid 500 MG Tablet PO ×2 (08:24→21:48)
[2024-03-02] MEDS: Acetaminophen 500 MG Tablet 1000 MG PO (08:26)
[2024-03-02 09:18] LABS: Bedside Glucose 238 mg/dL (74-106)
[2024-03-02] MEDS: guaiFENesin 600 MG Tablet PO (09:30)
[2024-03-02] MEDS: Furosemide 40 MG Tablet PO (09:30)
[2024-03-02] MEDS: Metoprolol Tartrate 25 MG Tablet PO ×2 (09:31→21:45)
--- NOTE | 2024-03-02 10:50 | PCM.PROGNOTE ---
Subjective Subjective Antonio was seen on team rounds today. His Dee was present in the room. Afebrile VSS - Maintaining appropriate oxygen saturation on RA-98-100 on room air. Oral intake - FOOD good FLUIDS good urine output consistently exceeds oral intake since admission to rehab. He denies lightheadedness. Weight is stable. The BUNs/creatinine ratio at admission was 28.8. The blood sugar record was reviewed. Blood sugar yesterday AM fasting was 73. The 11:00 was 213 and he was 177 at supper and 220 at at bedtime. He had a low blood sugar at 3 AM was 81 and the fasting this morning was 96. He is getting Glargine 48 units at HS, Ozempic 1 mg weekly and Amaryl 4 mg BID......has had rare instances of coverage with SSI since admission to rehab. Discussed with nursing - no problems that need addressed Reviewed the THERAPY notes Medication list reviewed. Antonio tells me that the DExcom is sometimes 100 points off when compared to our accucheks. I alarmed for a low BS and when nursing checked it the reading on our machine was in the 150's. He tells me that since he has been taking oxycodone his chronic back pain is much better. His endorses this. It was very painful for him to stand for any length of time due to back pain prior to the CABG. He scored high on the depression inventory done by the and his does agree that he was depressed and had flat affect but, since the back pain is better his affect has improved. Dee tells me that he has been diagnosed with obstructive sleep apnea in the past but he does not wear a CPAP device nor does he have oxygen at night. He could not tolerate the mask. He wakes up frequently at night........ and urinates frequently at night. Antonio is complaining of persistent cough, sometimes with greenish colored sputum. Chest pain increases with coughing and deep breathing. He has been using the incentive spirometer and PEP. On my review of a PA lateral chest x-ray done today there is elevation of left hemidiaphragm with blunting of left costophrenic angle. There is some atelectasis but no definite infiltrate. Denies SOB at rest, orthopnea, palpitations, lightheadedness, calf pain, nausea/vomiting/epigastric pain and dysuria. Objective Data Objective Data Vital Signs: Vital Signs Temp Pulse Resp BP Pulse Ox O2 Del Method 97.9 F 88 18 129/58 H 98 Room Air 03/02/24 07:23 03/02/24 09:31 03/02/24 07:23 03/02/24 07:23 03/02/24 09:48 03/02/24 07:23 Oxygen Delivery Method Room Air Weight: 204 lb Body Mass Index (BMI) 27.6 Intake & Output: Intake and Output for Last 24 Hours 02/29/24 03/01/24 03/02/24 23:59 23:59 23:59 Intake Total 1440 / 1440 1390 / 1390 180 / 180 Output Total 1750 / 1750 1575 / 1575 550 / 550 Balance -310 / -310 -185 / -185 -370 / -370 Lab / Micro Data 02/29/24 06:09 02/29/24 06:09 Labs: Laboratory Results - last 24 hr 03/01/24 11:30: POC Glucose 213 H 03/01/24 16:33: POC Glucose 177 H 03/01/24 21:22: POC Glucose 220 H 03/02/24 02:57: POC Glucose 81 03/02/24 07:02: POC Glucose 96 03/02/24 08:59: POC Glucose 238 H Physical Exam Const alert, oriented x3 and no apparent distress Constitutional Narrative: Making good eye contact when team members are talking with him. Affect is somewhat better today. He is very motivated to get better and go home and resume his life. General Appearance: cooperative Resp Resp Narrative: Diminished air exchange in both bases and he is splinting his respirations and not getting a full deep breath. No cough with attempted deep breath. No wheezing. There are a few coarse crackles in both bases. They did not resolve after attempted deep breaths. He has no conversational dyspnea and he is not tachypneic. He denies orthopnea. Cardio regular rate, regular rhythm, no rub and no gallops GI normal to inspection, nondistended, normoactive bowel sounds, soft to palpation and non-tender Extremity no calf tenderness General Extremity: Negative for edema Skin Wound Narrative: The sternal incision is intact with no dehiscence. There is no erythema and no discharge. The abdominal wounds are healing and have small eschars present. There is no periwound erythema no swelling. Neuro CN's II-XII intact bilaterally and no focal motor deficits Psych Psych Narrative: Affect is not as flat today and there is better modulation of his voice. Assessment & Plan Assessment/Plan (1) Physical debility: (2) S/P CABG x 4: (3) Acute on chronic anemia: (4) Insulin dependent diabetes mellitus: (5) Chronic renal failure, stage 3 (moderate): QUALIFIERS: Chronic kidney disease stage 3 subtype: unspecified whether 3a or 3b Qualified Code(s): N18.30 - Chronic kidney disease, stage 3 unspecified (6) Hyperlipidemia: QUALIFIERS: Hyperlipidemia type: mixed hyperlipidemia Qualified Code(s): E78.2 - Mixed hyperlipidemia (7) Hypertension: QUALIFIERS: Hypertension type: primary hypertension Qualified Code(s): I10 - Essential (primary) hypertension (8) Cough: PLAN: Afebrile, white blood cell count on lab drawn 02/29/2024 was normal. He is not tachypneic. He tells me that he is having a hard time getting sputum up and the coughing increases CP. I suspect the Lasix has something to do with this. He has atelectasis on the CXR per my review. (9) Nocturia: (10) Personal history of ORSA (oxacillin resistant Staphylococcus aureus): PLAN: Plan 1. Continue therapy 2. Continue Amaryl 4 mg p.o. twice daily but changed to 0600 and 1600 daily 3. Decrease the glargine to 40 units at HS 4. DC the Dexcom since the readings are not accurate. Increase the accucheks to ACHS and 3AM 5. Check an overnight trending pulse ox tonight 6. PA and lateral chest x-ray today-reviewed, awaiting radiology report 7. Continue to monitor for signs/symptoms of depression. Will hold off on medication at this time. Discussed with Antonio and his Dee. He seems very motivated to get better and is generally a very positive person. 8. Will have him follow-up with chronic pain management at discharge. He has seen Dr. Mcmanus in the past and was placed on oxycodone but he quit taking it after a week due to constipation. We discussed that nearly everyone taking narcotics has problems with constipation and needs to take a stool softener and he is amenable to this. Quality of life is definitely improved with treatment of the back pain. Charges/Coding Visit Charges Inpatient E&M: 32574 Subs Hosp L2
[2024-03-02] MEDS: SEMAGLUTIDE 1 MG/0.75 ML PEN.INJCTR SQ (11:42)
[2024-03-02] MEDS: Insulin Lispro 100 UNIT/ML INSULN.PEN SC ×2 (11:47→17:01)
[2024-03-02 11:48] LABS: Bedside Glucose 200 mg/dL (74-106)
--- NOTE | 2024-03-02 14:30 | RAD_ITS ---
STUDY: X-RAY CHEST REASON FOR EXAM: Male, 78 years old. Cough TECHNIQUE: PA and lateral views of the chest. COMPARISON: December 02, 2023 FINDINGS: There are mild left lower lung increased opacities. There is small left pleural effusion. Sternal cerclage wires are present from a prior sternotomy. Normal mediastinum and arleth. Normal visualized pulmonary arteries. Normal visualized aortic arch and descending thoracic aorta. Normal visualized thoracic spine. Normal visualized ribs, clavicles, and shoulders. There is no demonstrated abnormality of the visualized soft tissue structures of the upper abdomen. RAD/Chest PA and Lateral IMPRESSION: Left lower lung atelectasis or infiltrate and pleural effusion. Electronically Signed: Noah Casarez MD at 19:49 EDT ,
--- NOTE | 2024-03-02 16:32 | CASEMGMT ---
Social Work IDT met with patient and Dee at bedside to complete care plans. Discussed patient progress with therapy (PT/OT) and nursing. Patient requires continued therapy. SW educated patient and was informed of Medicare coverage and benefits; approved 13 days; discharge 03/12. Patient informed SW that his goal is to discharge home as independent as possible to be a partner in the home. The patient's informed ELIUD that the patient was informed that home health care services can be provided for up to 6 weeks and then the patient can transition outpatient for continued rehabilitation. SW confirmed information. Patient and are agreeable to home health care services at discharge. Patient currently goes to [facility] for chiropractic services. Physician discussed concerns for depression. Patient is not currently agreeable to antidepressant medications. Anticipates plan for home health care services at discharge. ELIUD will continue to follow to assist with discharge planning. TIP [place]
[2024-03-02 17:23] LABS: Bedside Glucose 153 mg/dL (74-106)
[2024-03-02] MEDS: Insulin Glargine-YFGN 100 UNIT/ML Pen 40 UNIT SC (21:45)
[2024-03-02] MEDS: Atorvastatin Calcium 40 MG Tablet PO (21:45)
[2024-03-02] MEDS: ENZALUTAMIDE 40 MG TABLET 160 MG PO (21:49)
[2024-03-02] MEDS: guaiFENesin 1,200 MG Tablet 1200 MG PO (21:49)
[2024-03-02 21:59] LABS: Bedside Glucose 225 mg/dL (74-106)
[2024-03-03] MEDS: oxyCODONE 5 MG Tablet PO ×4 (00:04→20:49)
[2024-03-03] MEDS: Acetaminophen 500 MG Tablet 1000 MG PO ×2 (00:04→20:49)
[2024-03-03 03:33] LABS: Bedside Glucose 111 mg/dL (74-106)
[2024-03-03 06:00] VITALS: BMI 27.4
[2024-03-03] MEDS: Glimepiride 4 MG Tablet PO (06:51)
[2024-03-03] MEDS: Enoxaparin 40 MG/0.4 ML Syringe SC (06:51)
[2024-03-03 07:12] VITALS: BP 131/65; PULSE 85; RESP 16; TEMP 36.6; O2SAT 98
[2024-03-03 07:12] LABS: Bedside Glucose 99 mg/dL (74-106)
[2024-03-03] MEDS: Senna/Docusate Sodium 1 Tablet 2 TABLET PO (07:59)
[2024-03-03 08:00] VITALS: BP 131/65; PULSE 85
[2024-03-03] MEDS: Furosemide 40 MG Tablet PO (08:00)
[2024-03-03] MEDS: guaiFENesin 1,200 MG Tablet 1200 MG PO ×2 (08:00→21:01)
[2024-03-03] MEDS: Multivitamins,Therapeutic Tablet 1 TABLET PO (08:00)
[2024-03-03] MEDS: Aspirin E.C. 81 MG Tablet PO (08:00)
[2024-03-03] MEDS: Ascorbic Acid 500 MG Tablet PO ×2 (08:00→21:02)
[2024-03-03] MEDS: Metoprolol Tartrate 25 MG Tablet PO ×2 (08:00→21:01)
--- NOTE | 2024-03-03 11:44 | PCM.PROGNOTE ---
Subjective Subjective Afebrile VSS -systolic blood pressure is mildly elevated at times but the diastolic is always within normal limits. Heart rate is within normal limits. Maintaining appropriate oxygen saturation on RA-96 to 99% on room air. Oral intake - FOOD good FLUIDS fair fluid intake but with the Lasix he is diuresing and has been in negative fluid balance since 02/29/2024. Yesterday he was -1020 and today so far he is -1075. The blood sugar record was reviewed. He was 225 at bedtime and at 3 AM 111. The fasting this morning was 99. Blood sugar at lunch is 192. Discussed with nursing - no problems that need addressed Reviewed the THERAPY notes Medication list reviewed. Denies cephalgia, lightheadedness, vertigo, chest pain with exertion, shortness of breath at rest, orthopnea, nausea/vomiting/abdominal pain, diarrhea/constipation, dysuria and calf pain. Back pain has been better since he is had oxycodone for the sternal incision pain. He continues to have some cough but denies shaking chills, night sweats and he has had no fevers. The chest x-ray shows a small amount of fluid in the left base and atelectasis. He has had some chronic changes in the left base in the past, even prior to the CABG. Has been using the IS and PEP as instructed. The overnight trending pulse ox was reviewed. He had 1 desaturation event at 23 hours and 59 minutes lasting 5 minutes and 36 seconds with the lowest oxygen saturation being 79%. He does not want to consider a sleep study at this time but, he would like to try supplemental oxygen while sleeping to see if it improves sleep quality and the number of times he gets up at night to urinate........usually 3-4 times a night at least. He tells me that he did not have trouble with edema of the LE's prior to the CABG. EF was 51% prior to CABG. He is not certain why he is taking Lasix. Objective Data Objective Data Vital Signs: Vital Signs Temp Pulse Resp BP Pulse Ox O2 Del Method O2 Flow Rate 97.9 F 85 16 131/65 H 98 Room Air 0 03/03/24 07:12 03/03/24 08:00 03/03/24 07:12 03/03/24 08:00 03/03/24 07:12 03/03/24 07:12 03/02/24 22:05 FiO2 21 03/02/24 22:05 Oxygen Flow Rate (L/min) 0 Oxygen Delivery Method Room Air Weight: 202 lb 13.204 oz Body Mass Index (BMI) 27.4 Intake & Output: Intake and Output for Last 24 Hours 03/01/24 03/02/24 03/03/24 23:59 23:59 23:59 Intake Total 1390 / 1390 1180 / 1430 550 / 550 Output Total 1575 / 1575 2200 / 2500 1625 / 1625 Balance -185 / -185 -1020 / -1070 -1075 / -1075 Lab / Micro Data 02/29/24 06:09 02/29/24 06:09 Labs: Laboratory Results - last 24 hr 03/02/24 11:31: POC Glucose 200 H 03/02/24 16:59: POC Glucose 153 H 03/02/24 21:42: POC Glucose 225 H 03/03/24 03:14: POC Glucose 111 H 03/03/24 06:52: POC Glucose 99 Radiography Diagnostic Testing: Radiology Impression Chest X-Ray 03/02/24 14:30 IMPRESSION: Left lower lung atelectasis or infiltrate and pleural effusion. Electronically Signed: Noah Casarez MD at 19:49 EDT , Physical Exam Const alert, oriented x3 and no apparent distress Constitutional Narrative: Looks tired.....he just finished therapy and is hoping to rest. General Appearance: cooperative HEENT Mouth: dry mucous membranes Neck no JVD Resp normal respiratory effort Resp Narrative: No conversational dyspnea. Breath sounds are diminished, especially in the bases. No fine crackles in the bases. Few coarse crackles. Respiration is not labored, even with ambulation. Effort and Inspection: Negative for tachypneic, respiratory distress or labored Cardio regular rate, regular rhythm, no rub and no gallops Cardio Narrative: No ectopy GI normal to inspection, nondistended, normoactive bowel sounds, soft to palpation and non-tender GI Narrative: Bowel movements are regular on the current stool softeners. Extremity no calf tenderness Extremity Narrative: He is not wearing PAT hose.......tells me that the nurse aid could not get the TEDS on. He has diabetic socks on and there is a ring around the top of the sock with edema above. General Extremity: Negative for edema Skin General Skin Exam: no breakdown Rashes: no rashes Wound Narrative: The sternal incision looks great. There is no dehiscence, no raymon-incisional erythema, no discharge and no swelling around the incision. He does have some burning pain over the sternum with cough. The cough is not keeping him awake at night. Assessment & Plan Assessment/Plan (1) Physical debility: (2) S/P CABG x 4: (3) Acute on chronic anemia: (4) Insulin dependent diabetes mellitus: (5) Chronic renal failure, stage 3 (moderate): QUALIFIERS: Chronic kidney disease stage 3 subtype: unspecified whether 3a or 3b Qualified Code(s): N18.30 - Chronic kidney disease, stage 3 unspecified (6) Hyperlipidemia: QUALIFIERS: Hyperlipidemia type: mixed hyperlipidemia Qualified Code(s): E78.2 - Mixed hyperlipidemia (7) Hypertension: QUALIFIERS: Hypertension type: primary hypertension Qualified Code(s): I10 - Essential (primary) hypertension (8) Cough: PLAN: Due to atelectasis. (9) Nocturia: (10) Personal history of ORSA (oxacillin resistant Staphylococcus aureus): (11) History of sleep apnea: PLAN: Plan 1. Continue therapy 2. Recheck CBC, BMP, MAG, BNP and a PSA on . He is coming up on his [address] Grey and needs a PSA prior to the office appt. 3. change the Amaryl to 6 mg with breakfast. Continue to monitor the BS's AC, HS and 3 AM. Continue the SSI TID AC. 4. O2 at night when sleeping Charges/Coding Visit Charges Inpatient E&M: 07329 [facility] Hosp L1
[2024-03-03 12:09] LABS: Bedside Glucose 192 mg/dL (74-106)
[2024-03-03] MEDS: Insulin Lispro 100 UNIT/ML INSULN.PEN SC (12:09)
[2024-03-03 15:09] LABS: Pathologist Review Reviewed
[2024-03-03 17:23] LABS: Bedside Glucose 134 mg/dL (74-106)
[2024-03-03 19:25] VITALS: BP 116/65; PULSE 82; RESP 16; TEMP 36.2; O2SAT 100
[2024-03-03] MEDS: Insulin Glargine-YFGN 100 UNIT/ML Pen 40 UNIT SC (21:00)
[2024-03-03 21:01] VITALS: BP 116/65; PULSE 82
[2024-03-03] MEDS: Atorvastatin Calcium 40 MG Tablet PO (21:01)
[2024-03-03] MEDS: ENZALUTAMIDE 40 MG TABLET 160 MG PO (21:02)
[2024-03-03 21:25] VITALS: PULSE 77; RESP 16; O2SAT 100
[2024-03-03 21:26] LABS: Bedside Glucose 174 mg/dL (74-106)
[2024-03-04 02:52] LABS: Bedside Glucose 98 mg/dL (74-106)
[2024-03-04 05:11] VITALS: BMI 27.5
[2024-03-04] MEDS: Enoxaparin 40 MG/0.4 ML Syringe SC (05:19)
[2024-03-04 07:08] LABS: Bedside Glucose 103 mg/dL (74-106)
[2024-03-04] MEDS: oxyCODONE 5 MG Tablet PO ×2 (07:31→18:40)
[2024-03-04] MEDS: Acetaminophen 500 MG Tablet 1000 MG PO ×2 (07:31→18:41)
[2024-03-04 09:10] VITALS: BP 96/49; PULSE 83; RESP 17; TEMP 37.1; O2SAT 96
[2024-03-04 09:11] VITALS: BP 94/46
[2024-03-04] MEDS: Multivitamins,Therapeutic Tablet 1 TABLET PO (09:12)
[2024-03-04] MEDS: Glimepiride 2 MG Tablet 6 MG PO (09:12)
[2024-03-04] MEDS: Aspirin E.C. 81 MG Tablet PO (09:13)
[2024-03-04] MEDS: guaiFENesin 1,200 MG Tablet 1200 MG PO (09:13)
[2024-03-04] MEDS: Ascorbic Acid 500 MG Tablet PO ×2 (09:14→21:26)
[2024-03-04 09:29] VITALS: BP 94/46; PULSE 83
--- NOTE | 2024-03-04 09:48 | NURSING ---
Addendum entered by Yesenia Wilson 03/04/24 11:05: Updated Dr. Hancock on patient's request to D/C Lasix and patient refused AM dose. New order to D/C Lasix. Order placed. Original Note: Patient refused AM Lasix. States he was up all night going to the bathroom. Will update
[2024-03-04 11:41] LABS: Bedside Glucose 191 mg/dL (74-106)
[2024-03-04] MEDS: Insulin Lispro 100 UNIT/ML INSULN.PEN SC (12:08)
[2024-03-04 19:27] LABS: Bedside Glucose 99 mg/dL (74-106)
[2024-03-04 21:21] VITALS: BP 139/59; PULSE 91; RESP 16; TEMP 36.4; O2SAT 96
[2024-03-04 21:23] VITALS: BP 139/59; PULSE 91
[2024-03-04] MEDS: Metoprolol Tartrate 25 MG Tablet PO (21:23)
[2024-03-04] MEDS: Atorvastatin Calcium 40 MG Tablet PO (21:23)
[2024-03-04] MEDS: Insulin Glargine-YFGN 100 UNIT/ML Pen 40 UNIT SC (21:24)
[2024-03-04] MEDS: guaiFENesin 600 MG Tablet PO (21:25)
[2024-03-04] MEDS: ENZALUTAMIDE 40 MG TABLET 160 MG PO (21:27)
[2024-03-04] MEDS: guaiFENesin/Codeine 5 ML UDC 10 ML PO (21:34)
[2024-03-04 22:00] VITALS: PULSE 91; RESP 15; O2SAT 97
[2024-03-04 22:52] LABS: Bedside Glucose 225 mg/dL (74-106)
[2024-03-05 02:34] LABS: Bedside Glucose 175 mg/dL (74-106)
[2024-03-05 05:56] LABS: Hematocrit 29.8 % (40-54); Hemoglobin 9.2 g/dL (13.0-16.5); Mean Corp Hgb Conc 30.9 g/dL (32-36); Mean Corpuscular Volume 90.6 fL (80-94); Mean Platelet Vol. 8.5 fl (6.2-12.0); Platelet Count 445 K/mm3 (150-450); RBC Distribution Width CV 16.4 % (11.6-14.6); Red Blood Count 3.29 M/mm3 (4.6-6.2); White Blood Count 7.7 K/mm3 (4.4-11.0)
[2024-03-05 06:00] VITALS: BMI 27.3
[2024-03-05 06:21] LABS: Anion Gap 6 (5-15); BUN 24 mg/dL (7-18); BUN/Creat Ratio 17.3 RATIO (10-20); Calcium,Total 8.9 mg/dL (8.5-10.1); Chloride 104 mmol/L (98-107); Creatinine, Serum 1.39 mg/dL (0.70-1.30); EST Glomerular Filtration Rate 53 mL/min (>60); Est Glom Filt Rate - Afr Amer 64 mL/min (>60); Estimated Creatinine Clearance 48.85 ml/min; Glucose 147 mg/dL (74-106); Magnesium 2.1 mg/dL (1.6-2.6); Potassium 4.4 mmol/L (3.5-5.1); Sodium Level 136 mmol/L (136-145)
[2024-03-05] MEDS: Enoxaparin 40 MG/0.4 ML Syringe SC (06:28)
[2024-03-05 07:20] LABS: BNP,B-Type NATRIURETIC PEPTIDE 233.6 pg/mL (0-100)
[2024-03-05 07:22] LABS: Bedside Glucose 141 mg/dL (74-106)
[2024-03-05] MEDS: Aspirin E.C. 81 MG Tablet PO (07:57)
[2024-03-05] MEDS: Ascorbic Acid 500 MG Tablet PO ×2 (07:57→22:12)
[2024-03-05] MEDS: Multivitamins,Therapeutic Tablet 1 TABLET PO (07:57)
[2024-03-05] MEDS: oxyCODONE 5 MG Tablet PO ×3 (07:57→22:20)
[2024-03-05] MEDS: Glimepiride 2 MG Tablet 6 MG PO (07:57)
[2024-03-05] MEDS: guaiFENesin 600 MG Tablet PO ×2 (07:57→22:12)
[2024-03-05 07:59] VITALS: BP 103/62
[2024-03-05 08:36] VITALS: BP 103/62; PULSE 78; RESP 16; TEMP 36.9; O2SAT 97
--- NOTE | 2024-03-05 10:48 | PCM.PROGNOTE ---
Subjective Subjective Afebrile VSS - Maintaining appropriate oxygen saturation on RA Oral intake - FOOD good FLUIDS good Weight is down approximately 2 and half pounds since admission. The blood sugar record was reviewed. Fasting this morning is 141 blood sugar prior to lunch was elevated at 246. Not getting hypoglycemic at night.BS's at lunch and HS are elevated. Was previously on Levemir 80 units BID Discussed with nursing - no problems that need addressed Reviewed the THERAPY notes Medication list reviewed. Antonio tells me he slept better last night after receiving guaifenesin with codeine at bedtime. Cough is improved. Denies lightheadedness, shortness of breath, palpitations, nausea/vomiting/abdominal pain, dysuria and weakness. All labs done this morning was personally reviewed. White blood cell count is normal at 7.7. Hemoglobin is stable at 9.2. RDW is increased 53 and platelets are high normal at 445,000. Sodium is 136 and the potassium is 4.4. The BUN is 24 with a creatinine of 1.39 which is within his baseline. BUN/creatinine ratio is 17.3. Magnesium is 2.1. BNP is mildly elevated at 233 however this may be secondary to chronic renal failure. PSA pending. Objective Data Objective Data Vital Signs: Vital Signs Temp Pulse Resp BP Pulse Ox O2 Del Method O2 Flow Rate 98.4 F 78 16 103/62 97 Room Air 0 03/05/24 08:36 03/05/24 08:36 03/05/24 08:36 03/05/24 08:36 03/05/24 08:36 03/05/24 08:36 03/02/24 22:05 FiO2 21 03/02/24 22:05 Oxygen Flow Rate (L/min) 0 Oxygen Delivery Method Room Air Weight: 201 lb 15.095 oz Body Mass Index (BMI) 27.3 Intake & Output: Intake and Output for Last 24 Hours 03/03/24 03/04/24 03/05/24 23:59 23:59 23:59 Intake Total 1450 / 1450 1830 / 1830 540 / 540 Output Total 3275 / 3475 2200 / 2200 550 / 550 Balance -1825 / -2025 -370 / -370 -10 / -10 Lab / Micro Data 03/05/24 05:44 03/05/24 05:44 Labs: Laboratory Results - last 24 hr 03/04/24 11:23: POC Glucose 191 H 03/04/24 16:36: POC Glucose 99 03/04/24 21:15: POC Glucose 225 H 03/05/24 02:14: POC Glucose 175 H 03/05/24 05:44: WBC 7.7, RBC 3.29 L, Hgb 9.2 L, Hct 29.8 L, MCV 90.6, MCH 28.0, MCHC 30.9 L, RDW Std Deviation 53.0 H, RDW Coeff of David 16.4 H, Plt Count 445, MPV 8.5, Sodium 136, Potassium 4.4, Chloride 104, Carbon Dioxide 26.0, Anion Gap 6, BUN 24 H, Creatinine 1.39 H, Estim Creat Clear Calc 48.85, Est GFR (MDRD) Af Amer 64, Est GFR (MDRD) Non-Af 53 L, BUN/Creatinine Ratio 17.3, Glucose 147 H, Calcium 8.9, Magnesium 2.1, B-Natriuretic Peptide 233.6 H 03/05/24 06:32: POC Glucose 141 H Physical Exam Const alert, oriented x3 and no apparent distress General Appearance: cooperative HEENT HEENT Narrative: MM are a little more moist today. No thrush Resp Resp Narrative: Decreased in the bases. Not coughing with deep breaths. Few coarse crackles, no wheezes. No conversational dyspnea. Effort and Inspection: Negative for tachypneic or labored Cardio regular rate, regular rhythm, no rub and no gallops Cardio Narrative: No ectopy GI normal to inspection, nondistended, normoactive bowel sounds, soft to palpation and non-tender GI Narrative: No guarding with palpation. Extremity no calf tenderness Extremity Narrative: PAT hose are in place. Edema is better with the TEDS. General Extremity: Negative for edema Skin General Skin Exam: no breakdown Wound Narrative: All wounds are healing with no DC, no erythema and no swelling. Neuro CN's II-XII intact bilaterally and no focal motor deficits Neuro Narrative: Generalized weakness. Psych cooperative Psych Narrative: affect is not as flat Slept better last night. Good appetite. A little anxious waiting for the results of the PSA done today. Results are pending. Appearance: appropriate Assessment & Plan Assessment/Plan (1) Physical debility: (2) S/P CABG x 4: (3) Acute on chronic anemia: (4) Insulin dependent diabetes mellitus: (5) Chronic renal failure, stage 3 (moderate): QUALIFIERS: Chronic kidney disease stage 3 subtype: unspecified whether 3a or 3b Qualified Code(s): N18.30 - Chronic kidney disease, stage 3 unspecified (6) Hyperlipidemia: QUALIFIERS: Hyperlipidemia type: mixed hyperlipidemia Qualified Code(s): E78.2 - Mixed hyperlipidemia (7) Hypertension: QUALIFIERS: Hypertension type: primary hypertension Qualified Code(s): I10 - Essential (primary) hypertension (8) Cough: QUALIFIERS: Cough type: subacute Qualified Code(s): R05.2 - Subacute cough PLAN: Due to atelectasis. (9) Nocturia: (10) History of sleep apnea: PLAN: Plan 1. Continue therapy 2. DC glargine 3. Start NPH 20 units twice daily. Continue Amaryl 6 mg every morning. Continue Ozempic. Continue blood sugars before meals and at bedtime and 3 AM. 4. Continue the SSI TIDCM 5. Check iron studies. Charges/Coding Visit Charges Inpatient E&M: 63558 Subs Hosp L1
[2024-03-05 11:08] LABS: Bedside Glucose 246 mg/dL (74-106)
[2024-03-05 11:39] LABS: Ferritin 237 ng/mL (26-388); Iron 36 ug/dL (65-175); Iron Binding Capacity,Total 246 ug/dL (250-450); PERCENT IRON SATURATION 14.6 % (15.0-55.0)
[2024-03-05] MEDS: Insulin Lispro 100 UNIT/ML INSULN.PEN SC (12:11)
[2024-03-05] MEDS: Ferrous Sulfate 325 MG Tablet PO (16:17)
[2024-03-05 16:59] LABS: Bedside Glucose 135 mg/dL (74-106)
[2024-03-05] MEDS: Insulin NPH Human 100 UNITS/ML PEN 20 UNITS SC (17:07)
[2024-03-05 20:00] VITALS: BP 136/61; PULSE 88; RESP 17; TEMP 36.5; O2SAT 99
[2024-03-05 22:11] VITALS: PULSE 72
[2024-03-05] MEDS: Metoprolol Tartrate 25 MG Tablet PO (22:11)
[2024-03-05] MEDS: Acetaminophen 500 MG Tablet 1000 MG PO (22:11)
[2024-03-05] MEDS: Atorvastatin Calcium 40 MG Tablet PO (22:12)
[2024-03-05] MEDS: ENZALUTAMIDE 40 MG TABLET 160 MG PO (22:14)
[2024-03-05] MEDS: Senna/Docusate Sodium 1 Tablet 2 TABLET PO (22:17)
[2024-03-05] MEDS: guaiFENesin/Codeine 5 ML UDC 10 ML PO (22:19)
[2024-03-05 22:25] LABS: Bedside Glucose 199 mg/dL (74-106)
[2024-03-06 03:33] LABS: Bedside Glucose 150 mg/dL (74-106)
[2024-03-06 06:00] VITALS: BMI 27.9
[2024-03-06 06:33] LABS: Bedside Glucose 141 mg/dL (74-106)
[2024-03-06] MEDS: Enoxaparin 40 MG/0.4 ML Syringe SC (06:40)
[2024-03-06 07:47] VITALS: BP 112/52; PULSE 76; RESP 17; TEMP 36.4; O2SAT 92
[2024-03-06 07:55] VITALS: PULSE 76
[2024-03-06] MEDS: Ascorbic Acid 500 MG Tablet PO ×2 (07:55→22:02)
[2024-03-06] MEDS: Glimepiride 2 MG Tablet 6 MG PO (07:55)
[2024-03-06] MEDS: Aspirin E.C. 81 MG Tablet PO (07:56)
[2024-03-06] MEDS: Senna/Docusate Sodium 1 Tablet 2 TABLET PO ×2 (07:56→22:02)
[2024-03-06] MEDS: guaiFENesin 600 MG Tablet PO ×2 (07:56→22:01)
[2024-03-06] MEDS: Multivitamins,Therapeutic Tablet 1 TABLET PO (07:56)
[2024-03-06] MEDS: Insulin NPH Human 100 UNITS/ML PEN 20 UNITS SC ×2 (07:57→17:15)
[2024-03-06] MEDS: Acetaminophen 500 MG Tablet 1000 MG PO ×2 (08:01→22:08)
[2024-03-06] MEDS: Insulin Lispro 100 UNIT/ML INSULN.PEN SC (11:43)
[2024-03-06 12:02] LABS: Bedside Glucose 178 mg/dL (74-106)
[2024-03-06 16:41] LABS: Bedside Glucose 135 mg/dL (74-106)
[2024-03-06 17:07] LABS: PSA, Total <0.1 ng/mL (0.0-4.0)
[2024-03-06 20:00] VITALS: BP 127/54; PULSE 78; RESP 18; TEMP 36.1; O2SAT 99
[2024-03-06] MEDS: ENZALUTAMIDE 40 MG TABLET 160 MG PO (22:01)
[2024-03-06 22:02] VITALS: BP 136/66; PULSE 90
[2024-03-06] MEDS: Atorvastatin Calcium 40 MG Tablet PO (22:02)
[2024-03-06] MEDS: Metoprolol Tartrate 25 MG Tablet PO (22:02)
[2024-03-06] MEDS: guaiFENesin/Codeine 5 ML UDC 10 ML PO (22:13)
[2024-03-06 23:19] LABS: Bedside Glucose 248 mg/dL (74-106)
[2024-03-07 03:30] LABS: Bedside Glucose 135 mg/dL (74-106)
[2024-03-07 06:00] VITALS: BMI 27.5
[2024-03-07] MEDS: Enoxaparin 40 MG/0.4 ML Syringe SC (06:40)
[2024-03-07 07:19] LABS: Bedside Glucose 140 mg/dL (74-106)
[2024-03-07 07:50] VITALS: BP 132/68; PULSE 81; RESP 16; TEMP 36.1; O2SAT 100
[2024-03-07] MEDS: Glimepiride 2 MG Tablet 6 MG PO (08:03)
[2024-03-07 08:04] VITALS: PULSE 81
[2024-03-07] MEDS: Multivitamins,Therapeutic Tablet 1 TABLET PO (08:04)
[2024-03-07] MEDS: Metoprolol Tartrate 25 MG Tablet PO ×2 (08:04→21:36)
[2024-03-07] MEDS: Ferrous Sulfate 325 MG Tablet PO (08:04)
[2024-03-07] MEDS: Aspirin E.C. 81 MG Tablet PO (08:04)
[2024-03-07] MEDS: guaiFENesin 600 MG Tablet PO ×2 (08:05→21:04)
[2024-03-07] MEDS: Ascorbic Acid 500 MG Tablet PO ×2 (08:05→21:04)
[2024-03-07] MEDS: Insulin NPH Human 100 UNITS/ML PEN 20 UNITS SC ×2 (08:08→17:11)
[2024-03-07] MEDS: Acetaminophen 500 MG Tablet 1000 MG PO ×2 (08:18→22:13)
[2024-03-07 11:58] LABS: Bedside Glucose 200 mg/dL (74-106)
[2024-03-07] MEDS: Insulin Lispro 100 UNIT/ML INSULN.PEN SC (12:14)
[2024-03-07 16:53] LABS: Bedside Glucose 96 mg/dL (74-106)
[2024-03-07] MEDS: ENZALUTAMIDE 40 MG TABLET 160 MG PO (21:03)
[2024-03-07] MEDS: Senna/Docusate Sodium 1 Tablet 2 TABLET PO (21:04)
[2024-03-07] MEDS: Atorvastatin Calcium 40 MG Tablet PO (21:05)
[2024-03-07] MEDS: Guaifenesin/Codeine 5 ML WCH UDC 10 ML PO (21:09)
[2024-03-07] MEDS: oxyCODONE 5 MG Tablet PO (21:10)
[2024-03-07 21:36] VITALS: BP 122/55; PULSE 87
[2024-03-07 22:00] VITALS: BP 121/61; PULSE 77; RESP 16; TEMP 36; O2SAT 100
[2024-03-07 22:26] LABS: Bedside Glucose 142 mg/dL (74-106)
[2024-03-08] MEDS: Enoxaparin 40 MG/0.4 ML Syringe SC (05:33)
[2024-03-08] MEDS: Acetaminophen 500 MG Tablet 1000 MG PO ×3 (05:33→22:06)
[2024-03-08 07:17] LABS: Bedside Glucose 115 mg/dL (74-106)
[2024-03-08 08:00] VITALS: BMI 27.5
[2024-03-08 08:07] VITALS: BP 128/54; PULSE 76; RESP 17; TEMP 36.4; O2SAT 100
[2024-03-08] MEDS: Glimepiride 2 MG Tablet 6 MG PO (08:52)
[2024-03-08] MEDS: Insulin NPH Human 100 UNITS/ML PEN 20 UNITS SC ×2 (08:53→17:22)
[2024-03-08 08:54] VITALS: PULSE 76
[2024-03-08] MEDS: Multivitamins,Therapeutic Tablet 1 TABLET PO (08:54)
[2024-03-08] MEDS: Metoprolol Tartrate 25 MG Tablet PO ×2 (08:54→21:09)
[2024-03-08] MEDS: Aspirin E.C. 81 MG Tablet PO (08:54)
[2024-03-08] MEDS: Ascorbic Acid 500 MG Tablet PO ×2 (08:55→21:06)
[2024-03-08] MEDS: guaiFENesin 600 MG Tablet PO ×2 (08:55→21:06)
[2024-03-08 11:39] LABS: Bedside Glucose 206 mg/dL (74-106)
[2024-03-08] MEDS: Insulin Lispro 100 UNIT/ML INSULN.PEN SC ×2 (12:33→17:21)
[2024-03-08 17:30] LABS: Bedside Glucose 176 mg/dL (74-106)
[2024-03-08 19:00] VITALS: BP 120/48; PULSE 82; RESP 16; TEMP 36.6; O2SAT 99
[2024-03-08] MEDS: Guaifenesin/Codeine 5 ML WCH UDC 10 ML PO (21:04)
[2024-03-08] MEDS: Senna/Docusate Sodium 1 Tablet 2 TABLET PO (21:05)
[2024-03-08] MEDS: Atorvastatin Calcium 40 MG Tablet PO (21:06)
[2024-03-08] MEDS: ENZALUTAMIDE 40 MG TABLET 160 MG PO (21:07)
[2024-03-08 21:09] VITALS: BP 119/59; PULSE 86
[2024-03-08] MEDS: oxyCODONE 5 MG Tablet PO (21:18)
[2024-03-08 22:22] LABS: Bedside Glucose 165 mg/dL (74-106)
[2024-03-09 03:21] LABS: Bedside Glucose 126 mg/dL (74-106)
[2024-03-09] MEDS: Acetaminophen 500 MG Tablet 1000 MG PO ×2 (06:56→22:11)
[2024-03-09 06:59] VITALS: BMI 27.6
[2024-03-09] MEDS: Enoxaparin 40 MG/0.4 ML Syringe SC (07:01)
[2024-03-09 07:09] LABS: Bedside Glucose 136 mg/dL (74-106)
[2024-03-09 07:57] VITALS: BP 110/58; PULSE 72; RESP 17; TEMP 36.6; O2SAT 98
[2024-03-09 07:58] VITALS: BP 110/58; PULSE 72; RESP 17; TEMP 36.6; O2SAT 98
[2024-03-09 09:10] VITALS: BP 110/58; PULSE 72
[2024-03-09] MEDS: Metoprolol Tartrate 25 MG Tablet PO ×2 (09:10→21:53)
[2024-03-09] MEDS: Multivitamins,Therapeutic Tablet 1 TABLET PO (09:10)
[2024-03-09] MEDS: Aspirin E.C. 81 MG Tablet PO (09:10)
[2024-03-09] MEDS: Ascorbic Acid 500 MG Tablet PO ×2 (09:10→21:53)
[2024-03-09] MEDS: Glimepiride 2 MG Tablet 6 MG PO (09:10)
[2024-03-09] MEDS: Ferrous Sulfate 325 MG Tablet PO (09:10)
[2024-03-09] MEDS: Insulin NPH Human 100 UNITS/ML PEN 20 UNITS SC ×2 (09:10→17:44)
[2024-03-09] MEDS: guaiFENesin 600 MG Tablet PO ×2 (09:10→21:53)
[2024-03-09] MEDS: SEMAGLUTIDE 1 MG/0.75 ML PEN.INJCTR SQ (09:11)
[2024-03-09 11:26] LABS: Bedside Glucose 185 mg/dL (74-106)
--- NOTE | 2024-03-09 12:17 | PCM.PROGNOTE ---
Subjective Subjective Antonio was seen on team rounds today. His Dee was present in the room for rounds. All questions were answered to their satisfaction. Will plan on discharge , 03/12/2024 with home health care. Afebrile VSS - Maintaining appropriate oxygen saturation on RA Oral intake - FOOD good FLUIDS good Discussed with nursing - no problems that need addressed Reviewed the THERAPY notes Medication list reviewed. PSA was < 0.01 States that his pain is well-controlled with as needed oxycodone. Denies palpitations, shortness of breath, lightheadedness, nausea/vomiting/abdominal pain, diarrhea/constipation, dysuria and calf tenderness. Objective Data Objective Data Vital Signs: Vital Signs Temp Pulse Resp BP Pulse Ox O2 Del Method O2 Flow Rate 97.9 F 72 17 110/58 L 98 Room Air 2 03/09/24 07:58 03/09/24 09:10 03/09/24 07:58 03/09/24 09:10 03/09/24 07:58 03/09/24 07:58 03/06/24 22:00 FiO2 21 03/02/24 22:05 Oxygen Flow Rate (L/min) 2 Oxygen Delivery Method Room Air Weight: 204 lb 3.2 oz Body Mass Index (BMI) 27.6 Intake & Output: Intake and Output for Last 24 Hours 03/07/24 03/08/24 03/09/24 23:59 23:59 23:59 Intake Total 2200 / 2800 2700 / 2700 840 / 840 Output Total 1775 / 2525 2800 / 3200 800 / 800 Balance 425 / 275 -100 / -500 40 / 40 Lab / Micro Data 03/10/24 05:32 03/10/24 05:32 Labs: Laboratory Results - last 24 hr 03/08/24 17:10: POC Glucose 176 H 03/08/24 21:57: POC Glucose 165 H 03/09/24 03:02: POC Glucose 126 H 03/09/24 06:52: POC Glucose 136 H 03/09/24 11:09: POC Glucose 185 H Physical Exam Const alert, oriented x3 and no apparent distress General Appearance: cooperative Resp Resp Narrative: Decreased in the bases. Not coughing with deep breaths. Few coarse crackles, no wheezes. No conversational dyspnea. Effort and Inspection: Negative for tachypneic or labored Cardio regular rate, regular rhythm, no rub and no gallops Cardio Narrative: No ectopy GI normal to inspection, nondistended, normoactive bowel sounds, soft to palpation and non-tender GI Narrative: No guarding with palpation. Extremity no calf tenderness Extremity Narrative: PAT hose are in place. Edema is better with the TEDS. General Extremity: Negative for edema Skin General Skin Exam: no breakdown Wound Narrative: All wounds are healing with no DC, no erythema and no swelling. Assessment & Plan Assessment/Plan (1) Physical debility: (2) S/P CABG x 4: (3) Acute on chronic anemia: (4) Insulin dependent diabetes mellitus: (5) Chronic renal failure, stage 3 (moderate): QUALIFIERS: Chronic kidney disease stage 3 subtype: unspecified whether 3a or 3b Qualified Code(s): N18.30 - Chronic kidney disease, stage 3 unspecified (6) Hyperlipidemia: QUALIFIERS: Hyperlipidemia type: mixed hyperlipidemia Qualified Code(s): E78.2 - Mixed hyperlipidemia (7) Hypertension: QUALIFIERS: Hypertension type: primary hypertension Qualified Code(s): I10 - Essential (primary) hypertension (8) Cough: QUALIFIERS: Cough type: subacute Qualified Code(s): R05.2 - Subacute cough (9) Nocturia: (10) History of sleep apnea: PLAN: Plan 1. Continue therapy 2. BMP and CBC Saturday a.m. 3. Plan discharge for 03/12/2024 with home health care initially. Progress to outpatient PT/OT and cardiac rehab. DME needed includes a 3 in 1 commode and a shower chair. 4. Follow up with Dr. Mcmanus for chronic low back pain post DC. Continue PRN Oxycodone 5 mg at DC. 5. Increase the NPH to 24 units in the morning and continue 20 units prior to supper. 6. Discontinue the 3 AM blood sugar 7. Discontinue sliding scale insulin. Pt has 3 bags with candy on his bedside table. I explained that in order to avoid infection and promote healing it would be in his best interest to stick to the 1800 calorie diabetic diet and keep the BS's consistently less than 200.......preferably under 180. Charges/Coding Visit Charges Inpatient E&M: 67506 Subs Hosp L2
[2024-03-09] MEDS: Insulin Lispro 100 UNIT/ML INSULN.PEN SC (12:26)
--- NOTE | 2024-03-09 13:31 | CASEMGMT ---
Addendum entered by uYng Castillo 03/09/24 14:24: Hydraulic Press Tender met with patient and at bedside to discuss home health care services. Patient's inquired about an aid to assist with bathing. Patient will require home health PT/OT/SN/ALLERGIST IMMUNOLOGIST Original Note: Social Work IDT met with patient and at bedside to complete care plans. Patient has been requesting to discharge. Discussed patient progress with therapy PT/OT and nursing. Patient has been progressing with therapy. Patient's inquired about cardiac rehabilitation and clearance to initiate cardiac rehabilitation. Patient has progressed with therapy and advanced to utilizing cane from walker. Therapy recommends start of cardiac rehab post therapy. Patient's inquired about home health care and DME- toilet riser or over the toilet support. Patient has no preference for home health care agency. [facility] to be ordered to assist with discharge. Patient's to provide transportation at discharge. Discharge 03/12/2024 Home Health PT/OT TIP [place]
[2024-03-09] MEDS: oxyCODONE 5 MG Tablet PO (14:43)
[2024-03-09 18:09] LABS: Bedside Glucose 162 mg/dL (74-106)
[2024-03-09 19:38] VITALS: BP 118/59; PULSE 82; RESP 15; TEMP 36.4; O2SAT 97
[2024-03-09 21:43] LABS: Bedside Glucose 194 mg/dL (74-106)
[2024-03-09] MEDS: ENZALUTAMIDE 40 MG TABLET 160 MG PO (21:51)
[2024-03-09] MEDS: Senna/Docusate Sodium 1 Tablet 2 TABLET PO (21:52)
[2024-03-09 21:53] VITALS: BP 121/63; PULSE 83
[2024-03-09] MEDS: Atorvastatin Calcium 40 MG Tablet PO (21:53)
[2024-03-09 22:00] VITALS: PULSE 83; RESP 15; O2SAT 96
[2024-03-09] MEDS: Guaifenesin/Codeine 5 ML WCH UDC 10 ML PO (22:13)
[2024-03-10] MEDS: oxyCODONE 5 MG Tablet PO ×2 (03:15→15:07)
[2024-03-10 05:45] LABS: Hematocrit 29.8 % (40-54); Hemoglobin 9.4 g/dL (13.0-16.5); Mean Corp Hgb Conc 31.5 g/dL (32-36); Mean Corpuscular Hgb 28.8 pg (27.0-32.0); Mean Corpuscular Volume 91.4 fL (80-94); Mean Platelet Vol. 8.2 fl (6.2-12.0); Platelet Count 348 K/mm3 (150-450); RBC Distribution Width CV 16.1 % (11.6-14.6); RBC Distribution Width SD 53.1 fl (35.1-43.9); Red Blood Count 3.26 M/mm3 (4.6-6.2)
[2024-03-10 06:00] VITALS: BMI 28.0
[2024-03-10 06:04] LABS: Anion Gap 4 (5-15); BUN 18 mg/dL (7-18); BUN/Creat Ratio 14.9 RATIO (10-20); Chloride 108 mmol/L (98-107); Creatinine, Serum 1.21 mg/dL (0.70-1.30); EST Glomerular Filtration Rate 62 mL/min (>60); Est Glom Filt Rate - Afr Amer 75 mL/min (>60); Estimated Creatinine Clearance 56.12 ml/min; Glucose 154 mg/dL (74-106); Potassium 4.6 mmol/L (3.5-5.1); Sodium Level 138 mmol/L (136-145)
[2024-03-10] MEDS: Enoxaparin 40 MG/0.4 ML Syringe SC (06:40)
[2024-03-10] MEDS: Acetaminophen 500 MG Tablet 1000 MG PO ×2 (06:43→20:30)
[2024-03-10 06:50] LABS: Bedside Glucose 125 mg/dL (74-106)
[2024-03-10 07:38] VITALS: BP 113/60; PULSE 78; RESP 16; TEMP 36.3; O2SAT 99
[2024-03-10] MEDS: Insulin NPH Human 100 UNITS/ML PEN 24 UNITS SC (09:18)
[2024-03-10 09:19] VITALS: PULSE 78
[2024-03-10] MEDS: Aspirin E.C. 81 MG Tablet PO (09:19)
[2024-03-10] MEDS: Ascorbic Acid 500 MG Tablet PO ×2 (09:19→21:02)
[2024-03-10] MEDS: guaiFENesin 600 MG Tablet PO ×2 (09:19→21:02)
[2024-03-10] MEDS: Metoprolol Tartrate 25 MG Tablet PO ×2 (09:19→21:02)
[2024-03-10] MEDS: Multivitamins,Therapeutic Tablet 1 TABLET PO (09:19)
[2024-03-10] MEDS: Glimepiride 2 MG Tablet 6 MG PO (09:20)
[2024-03-10 11:20] LABS: Bedside Glucose 246 mg/dL (74-106)
[2024-03-10] MEDS: Insulin NPH Human 100 UNITS/ML PEN 20 UNITS SC (16:38)
[2024-03-10 17:06] LABS: Bedside Glucose 149 mg/dL (74-106)
[2024-03-10 20:21] VITALS: BP 144/64; PULSE 79; RESP 17; TEMP 36.3; O2SAT 97
[2024-03-10] MEDS: Guaifenesin/Codeine 5 ML WCH UDC 10 ML PO (21:00)
[2024-03-10] MEDS: Atorvastatin Calcium 40 MG Tablet PO (21:01)
[2024-03-10 21:02] VITALS: BP 144/64; PULSE 85
[2024-03-10] MEDS: Senna/Docusate Sodium 1 Tablet 2 TABLET PO (21:02)
[2024-03-10] MEDS: ENZALUTAMIDE 40 MG TABLET 160 MG PO (21:02)
[2024-03-10 21:21] LABS: Bedside Glucose 154 mg/dL (74-106)
[2024-03-10 22:00] VITALS: PULSE 85; RESP 16; O2SAT 94
[2024-03-11 06:00] VITALS: BMI 27.7
[2024-03-11] MEDS: Enoxaparin 40 MG/0.4 ML Syringe SC (06:36)
[2024-03-11] MEDS: oxyCODONE 5 MG Tablet PO ×2 (06:38→13:00)
[2024-03-11 07:30] LABS: Bedside Glucose 176 mg/dL (74-106)
[2024-03-11 09:03] VITALS: BP 132/68; PULSE 94; RESP 18; TEMP 36.2; O2SAT 97
[2024-03-11 09:37] VITALS: BP 132/68; PULSE 94
[2024-03-11] MEDS: Multivitamins,Therapeutic Tablet 1 TABLET PO (09:37)
[2024-03-11] MEDS: Glimepiride 2 MG Tablet 6 MG PO (09:37)
[2024-03-11] MEDS: Ferrous Sulfate 325 MG Tablet PO (09:37)
[2024-03-11] MEDS: Insulin NPH Human 100 UNITS/ML PEN 24 UNITS SC (09:37)
[2024-03-11] MEDS: Ascorbic Acid 500 MG Tablet PO ×2 (09:37→20:40)
[2024-03-11] MEDS: Metoprolol Tartrate 25 MG Tablet PO ×2 (09:37→20:41)
[2024-03-11] MEDS: Aspirin E.C. 81 MG Tablet PO (09:37)
[2024-03-11] MEDS: guaiFENesin 600 MG Tablet PO ×2 (09:37→20:41)
[2024-03-11 11:40] LABS: Bedside Glucose 185 mg/dL (74-106)
[2024-03-11 16:40] LABS: Bedside Glucose 99 mg/dL (74-106)
[2024-03-11] MEDS: Insulin NPH Human 100 UNITS/ML PEN 20 UNITS SC (17:29)
[2024-03-11 20:13] VITALS: BP 119/61; PULSE 79; RESP 16; TEMP 36.4; O2SAT 98
[2024-03-11 20:41] VITALS: BP 119/61; PULSE 79
[2024-03-11] MEDS: Senna/Docusate Sodium 1 Tablet 2 TABLET PO (20:41)
[2024-03-11] MEDS: Atorvastatin Calcium 40 MG Tablet PO (20:41)
[2024-03-11] MEDS: Guaifenesin/Codeine 5 ML WCH UDC 10 ML PO (20:42)
[2024-03-11] MEDS: Acetaminophen 500 MG Tablet 1000 MG PO (20:42)
[2024-03-11] MEDS: ENZALUTAMIDE 40 MG TABLET 160 MG PO (20:43)
[2024-03-11 23:37] LABS: Bedside Glucose 120 mg/dL (74-106)
[2024-03-12] MEDS: Enoxaparin 40 MG/0.4 ML Syringe SC (05:16)
[2024-03-12] MEDS: Acetaminophen 500 MG Tablet 1000 MG PO (05:16)
[2024-03-12 05:23] VITALS: BMI 27.4
[2024-03-12 07:26] LABS: Bedside Glucose 140 mg/dL (74-106)
[2024-03-12 09:01] VITALS: BP 127/77; PULSE 82; RESP 18; TEMP 36.1; O2SAT 99
[2024-03-12] MEDS: Aspirin E.C. 81 MG Tablet PO (09:14)
[2024-03-12] MEDS: Glimepiride 2 MG Tablet 6 MG PO (09:14)
[2024-03-12 09:15] VITALS: BP 127/77; PULSE 82
[2024-03-12] MEDS: Metoprolol Tartrate 25 MG Tablet PO (09:15)
[2024-03-12] MEDS: Multivitamins,Therapeutic Tablet 1 TABLET PO (09:15)
[2024-03-12] MEDS: Insulin NPH Human 100 UNITS/ML PEN 24 UNITS SC (09:15)
[2024-03-12] MEDS: Senna/Docusate Sodium 1 Tablet 2 TABLET PO (09:15)
[2024-03-12] MEDS: guaiFENesin 600 MG Tablet PO (09:15)
[2024-03-12] MEDS: Ascorbic Acid 500 MG Tablet PO (09:15)
--- NOTE | 2024-03-12 09:38 | PCM.DC.SUM ---
Providers Date of Admission: 02/28/24 Date of Discharge: 03/12/24 Primary Care Physician: Dr. Zack Vergara MD Reason For Visit: DEBILITY DUE TO CABG Diagnosis Discharge Diagnosis (1) Physical debility: Status: Acute Code(s): R53.81 - Other malaise (2) S/P CABG x 4: Status: Acute Code(s): Z95.1 - Presence of aortocoronary bypass graft (3) Acute on chronic anemia: Status: Chronic Code(s): D64.9 - Anemia, unspecified Plan: Continue iron supplement and Viatmin C. (4) Insulin dependent diabetes mellitus: Status: Chronic Plan: Continue NPH 24 units in the AM and 20 units before supper. Continue Amaryl 6 mg in the AM. He is on significantly less insulin than he was taking prior to surgery. I suspect he is non-compliant with diet at home and insulin will need to be adjusted after he discharges home. (5) Chronic renal failure, stage 3 (moderate): Status: Chronic Code(s): N18.30 - Chronic kidney disease, stage 3 unspecified Qualifiers: Chronic kidney disease stage 3 subtype: unspecified whether 3a or 3b Qualified Code(s): N18.30 - Chronic kidney disease, stage 3 unspecified Plan: Creat is below what his baseline has been for the past few years. I suspect this is because he is better hydrated. I reinforced with him the importance of staying well hydrated to maintain good kidney function. No edema at DC and no rales. Off Lasix. (6) Hyperlipidemia: Status: Chronic Code(s): E78.5 - Hyperlipidemia, unspecified Qualifiers: Hyperlipidemia type: mixed hyperlipidemia Qualified Code(s): E78.2 - Mixed hyperlipidemia (7) Hypertension: Status: Chronic Code(s): I10 - Essential (primary) hypertension Qualifiers: Hypertension type: primary hypertension Qualified Code(s): I10 - Essential (primary) hypertension (8) Cough: Status: Resolved Code(s): R05.9 - Cough, unspecified Qualifiers: Cough type: subacute Qualified Code(s): R05.2 - Subacute cough (9) Nocturia: Status: Chronic Code(s): R35.1 - Nocturia (10) History of sleep apnea: Status: Chronic Code(s): Z86.69 - Personal history of other diseases of the nervous system and sense organs Plan 1. DC home 2. Has follow up scheduled with Dr. Grey 03/12/2024. 3. Will follow-up with Dr. Vergara in the next 7 to 10 days. 4. Follow up with the cardiothoracic surgeon post DC from rehab. 5. Recommended he check his blood sugar twice daily, before breakfast and before supper and keep a record to take to Dr. Vergara at his next visit. Medications at Discharge Home Medications multivitamin with folic acid 400 mcg tablet (Thera) 1 tab PO DAILY supplement 10/13/13 ascorbic acid (vitamin C) 500 mg tablet 500 mg PO BID supplement 07/27/20 rosuvastatin 20 mg tablet 20 mg PO QHS cholesterol 04/20/21 semaglutide 1 mg/dose (2 mg/1.5 mL) subcutaneous pen injector 1 mg subcut QWEEK DIABETES 04/20/21 enzalutamide 40 mg capsule 160 mg PO DAILY cancer 01/06/24 leuprolide 7.5 mg (1 month) subcutaneous syringe (Adly) 22.5 mg subcut .[id number] cancer/heomine repacement 01/06/24 albuterol sulfate 90 mcg/actuation aerosol inhaler 2 puff inhalation BID PRN shortness of breath or wheezing 02/05/24 aspirin 81 mg tablet,delayed release (Adult Aspirin Regimen) 81 mg PO DAILY heart health #90 tabs 02/18/24 acetaminophen 500 mg tablet 1,000 mg PO Q8 PRN pain 02/28/24 metoprolol tartrate 25 mg tablet 25 mg PO BID blood pressure 02/28/24 ferrous sulfate 325 mg (65 mg iron) tablet (FeroSul) 325 mg PO Q48@0800 #30 tabs 03/12/24 furosemide 40 mg tablet 40 mg PO DAILY PRN weight gain #7 tabs 03/12/24 guaifenesin 600 mg tablet, extended release 12 hr (Mucinex) 600 mg PO BID #20 tabs 03/12/24 insulin NPH isoph U-100 human 100 unit/mL (3 mL) subcutaneous pen (Humulin N NPH U-100 Insulin KwikPen) See Rx Instructions .Route .COMPLEX #15 mL 03/12/24 insulin NPH isoph U-100 human 100 unit/mL (3 mL) subcutaneous pen (Humulin N NPH U-100 Insulin KwikPen) See Rx Instructions .Route .COMPLEX #15 mL 03/12/24 oxycodone 5 mg tablet 5 mg PO Q6H PRN pain 7 days #28 tabs 03/12/24 Hospital Course Operations - (CABG x 4 on 02/21/[address] Winters.) Procedures None Summary of Care Provided Minutes Spent on Discharge: 40 Hospital Course: RENATA SOUZA, is a 78 YO M with a PMH of coronary artery disease, history of prostate cancer, hyperlipidemia, diabetes mellitus type 2, TICO and hypertension who underwent CABG x 4 vessels on 02/21/[address] Winters at [facility]. Post op course was complicated by ARF that resolved prior to DC. He had no post operative AF while at [facility]. HGBA1C at [facility] was 8.0. LDL was 58 and the HDL was 33. Triglycerides were elevated at 281. Echocardiogram prior to surgery showed mildly reduced left ventricular systolic function with an EF of 51%. He has grade 1 diastolic dysfunction and 1+ AI. Post op he was seen by PT/OT and acute rehab was recommended following DC from [facility]. He was transferred to the acute inpatient rehab unit at [facility] on 02/28/2024 for 3 hours of therapy daily to restore function/independence at or near his level prior to CABG. BS's were uncontrolled at admission to rehab. Prior to the surgery he was taking Levemir 80 units BID Ozempic 1 mg weekly and Amaryl 4 mg BID. His HGBA1C was 8. He was seen by endocrine while at [facility] and Was discharged on Glargine at , Amaryl 4 mg BID and SSI. Blood sugars were not controlled with this regimen. He was placed on an 1800-calorie, carb consistent, cardiac diet at admission to rehab. The drug regimen was adjusted and at the time of DC he is taking Amaryl 6 mg every morning, NPH insulin 24 units in the a.m. and 20 units before supper and Ozempic 1 mg weekly. Blood sugars are in much better control. I suspect he is not complaint with diet at home and he has told me that he does not check his blood sugars at home. The drug regimen will likely need to be adjusted by Dr. Vergara. I recommended to Renata that he check the blood sugar twice daily, before breakfast and before supper and that he record the results to take to Dr. Vergara at his next visit. HGB has remained stable while in rehab. Hemoglobin was 9.2 at admission to rehab and is 9.4 at discharge. White blood cell count and platelets have been normal. The creatinine at admission to rehab was 1.32 and it went up to 1.39 on 03/05/2024. Lasix was discontinued and his creatinine is now 1.2 at discharge which is actually less than it has been for the past 3 years. I suspect this is due to better hydration. At the time of discharge she has no significant peripheral edema and he has no rales. Iron studies were checked while on rehab and his serum iron was low at 36. The iron saturation was low at 14.6 and ferritin was 237. He is taking an iron supplement every other day and tolerating this without constipation. He is also on vitamin C. LFTs have been normal. A total PSA was checked at the request of the patient and his so that Dr. Grey would have the results for his follow appt scheduled on 03/12/24. Renata did well in therapy. He was discharged on 03/12/24 and will have HHC for PT/OT/STEEL FABRICATOR. He is ambulating up to 750 feet with a straight cane at mod I on various surfaces. He is modified independent with all ADLs and is supervision/set up for tub/shower transfer. He will follow up with Dr. Vergara post [place] and also will follow up with Dr. Winters from cardiothoracic surgery, his inorganic chemical technician and Dr. Grey. Renata was given a prescription at [place] for a handicapped parking placard for the next year. He was instructed to wear compression stockings from the time he gets up in the morning until he gets into bed at night to control the swelling in his legs. Physical Exam Const alert, oriented x3 and no apparent distress General Appearance: cooperative Orientation / Consciousness: Negative for confused Eyes PERRL and EOMs intact bilaterally Neck supple and no JVD Resp clear to auscultation bilaterally Resp Narrative: Mildly diminished in the left base but, no rales. Rare cough now. Able to speak in complete sentences with no tachypnea/conversational dyspnea. Good air exchange. Cardio regular rate, regular rhythm, no murmurs, no rub and no gallops Cardio Narrative: No ectopy GI normal to inspection, nondistended, normoactive bowel sounds, soft to palpation and non-tender GI Narrative: No guarding with palpation Extremity Extremity Narrative: He has some pitting edema of his ankles bilaterally and the distal pretibial area. He does not have compression stockings on. General Extremity: Negative for clubbing or cyanosis Skin Skin Narrative: All incisions are intact with no dehiscence, no swelling and no raymon-incisional erythema. General Skin Exam: no breakdown Rashes: no rashes Neuro CN's II-XII intact bilaterally and no focal motor deficits Psych affect normal and denies homicidal ideation Appearance: appropriate Attitude: No agitated Activity / Motor Behavior: Negative for restless Mood & Affect: Negative for depressed or anxious Weight / BMI Weight Weight: 202 lb 6.15 oz Body Mass Index (BMI) 27.4 ABG / Lab / Microbiology Data 03/10/24 05:32 03/10/24 05:32 Laboratory: Laboratory Results - last 24 hr 03/11/24 11:18: POC Glucose 185 H 03/11/24 16:17: POC Glucose 99 03/11/24 22:27: POC Glucose 120 H 03/12/24 07:07: POC Glucose 140 H Meaningful Use Info Meaningful Use Meaningful Use Diagnoses (Choose all that apply): None applicable Ischemic Stroke Statin Dosing Therapy Reference: STATIN DOSE THERAPY REFERENCE: * Patients > 75 years receive moderate or high dose statin therapy. * Patients 75 years or YOUNGER should receive HIGH intensity statin dose unless contraindicated. You will be required to document reason for non-treatment if statin daily dose does not meet guidelines. HIGH DOSE STATIN THERAPY DAILY Atorvastatin > than or = to 40 mg Rosuvastatin > than or = to 20 mg Amlodipine + Atorvastatin > than or = to 2.5/40 mg Ezetimibe + Simvastatin 10/80 mg Simvastatin 80mg Discharge Plan Admission Admit Date/Time: 02/28/24 15:45 Primary Reason for Your Visit: Debility due to CABG Attending Provider: Ce Hancock Primary Care Provider: aZck Vergara Chi Instructions Additional Instructions / Restrictions: 1. [facility] HH PT/OT/SN/STEEL FABRICATOR 2. Your blood sugars are doing good on a lot less insulin than you were taking prior to the surgery. I suspect your diet is much better in the hospital than it was at home. Blood sugar control is important. Uncontrolled Blood sugars lead to coronary artery disease and strokes and kidney disease. I want you to check your blood sugar before breakfast and before supper and keep a record. Bring the record to your visit with Dr. Vergara so he will know how to adjust the insulin. 3. You are mildly anemic but, the blood count is stable. 4. Your creatinine, this tells us about kidney function, is better than it has been in the past few years. Staying hydrated is important to preserve kidney function. Controlling your blood sugars is also important in maintaining good kidney function. 5. You have a lot of swelling in your ankles on the day of DC. This is in part because you do not have compression stockings on. Your lungs are clear. I am giving you a prescription for Lasix to keep at home. I want you to weigh yourself every morning and keep a record. If your weight goes up by 5 lbs or more in a week take a Lasix in the morning daily until the weight is back to baseline. 6. I am giving you a prescription to take the DMV to get a handicapped parking placard. It will be good for a year. 7. If you or Dee have any questions after leaving rehab please do not hesitate to call me. OFFICE: [phone] CELL: [phone] Discharge Orders/Prescriptions Prescriptions: New ferrous sulfate [FeroSul] 325 mg (65 mg iron) Tablet 325 mg PO Q48@0800 Qty: 30 0RF Humulin N NPH Insulin KwikPen 100 unit/mL (3 mL) insulin pen See Rx Instructions .ROUTE .COMPLEX Qty: 15 0RF Rx Instructions: 24 units before breakfast and 20 units prior to supper furosemide 40 mg tablet 40 mg PO DAILY PRN (Reason: weight gain) Qty: 7 0RF Humulin N NPH Insulin KwikPen 100 unit/mL (3 mL) insulin pen See Rx Instructions .ROUTE .COMPLEX Qty: 15 0RF Rx Instructions: 24 units in the AM and 20 units before supper oxycodone 5 mg tablet 5 mg PO Q6H PRN (Reason: pain) 7 Days Qty: 28 0RF guaifenesin [Mucinex] 600 mg tablet extended release 12hr 600 mg PO BID Qty: 20 0RF Continued albuterol sulfate 90 mcg/actuation HFA aerosol inhaler 2 puff inhalation BID PRN (Reason: shortness of breath or wheezing) multivitamin with folic acid [Thera] 1 TABLET tablet 1 tab PO DAILY rosuvastatin 20 mg tablet 20 mg PO QHS ascorbic acid (vitamin C) 500 MG tablet 500 mg PO BID semaglutide 1 mg/dose (2 mg/1.5 mL) pen injector 1 mg subcut QWEEK enzalutamide 40 mg capsule 160 mg PO DAILY Eligard 7.5 mg (1 month) syringe 22.5 mg subcut .[id number] Patient Comments: every 3 months/unsure of dose Rx Instructions: Once Every 3 months metoprolol tartrate 25 mg tablet 25 mg PO BID acetaminophen 500 mg tablet 1,000 mg PO Q8 PRN (Reason: pain) aspirin [Adult Aspirin Regimen] 81 mg tablet,delayed release (DR/EC) 81 mg PO DAILY Qty: 90 3RF Discontinued Levemir U-100 Insulin 100 unit/mL solution 48 unit subcut .HS glimepiride 4 MG tablet 4 mg PO BID furosemide 40 mg tablet 40 mg PO DAILY oxycodone 5 mg tablet 5 mg PO Q6H PRN (Reason: pain (scale score 7-10)) Referrals / Follow Up: Zack Vergara Chi, MD [Primary Care Provider] - Disposition Disposition (needs filled in before D/C Order can be placed): Home Health Service Charges/Coding Visit Charges Inpatient E&M: 70102 Disch Hosp >30min
[2024-03-12 10:00] VITALS: O2SAT 99
[2024-03-12 12:09] LABS: Bedside Glucose 235 mg/dL (74-106)
--- NOTE | 2024-03-12 15:04 | CASEMGMT ---
Social Work SW received a call from patient's bedside RN inquiring about bedside commode. SW obtained script from Physician and submitted referral to [facility]. SW contact patient's , Dee who requested that BSC is delivered to the home. Patient discharged home with [facility] PT/OT SOC 03/13; BSC 3n1 ordered via [facility] TIP [place]
--- NOTE | 2024-03-13 17:00 | CASEMGMT ---
Social Work - discharge planning Spoke with Maria Del Rosario MEEKS on RU. Patient was discharged on 03.12.2024 with plan for skilled HHC PT/OT/nursing/TEXTILE BAG SEWER via [facility]. [facility] orders need to be sent to [facility] in order to start services. Spoke with Dr. Hancock for verbal/telephone order for skilled HHC. Order placed. Spoke with [facility] Clinical Coal Gasification Technician Telma and Director Ewelina regarding referral, and placement of order for skilled services. [facility] will call the to discuss start of care with patient and follow up on questions has. Provided 's number, as [phone] ([place]). No other services requested or indicated. -DERRICK Whitehead
== END 2024-03-12 14:51 | disposition home health service (06) | DRG 949 ==
PROVIDERS: Admitting Provider Internal Medicine; PCP Family Medicine Geriatric Medicine; Visit Provider Internal Medicine
DX: Z48.812 Encounter for surgical aftercare following surgery on the circulatory system (principal); J98.11 Atelectasis; E11.22 Type 2 diabetes mellitus with diabetic chronic kidney disease; I12.9 Hypertensive chronic kidney disease with stage 1 through stage 4 chronic kidney disease, or unspecified chronic kidney disease; D64.9 Anemia, unspecified; E78.2 Mixed hyperlipidemia; N18.30 Chronic kidney disease, stage 3 unspecified; Z79.4 Long term (current) use of insulin; I25.10 Atherosclerotic heart disease of native coronary artery without angina pectoris; R53.81 Other malaise; Z95.1 Presence of aortocoronary bypass graft; Z85.46 Personal history of malignant neoplasm of prostate; Z85.830 Personal history of malignant neoplasm of bone; Z79.82 Long term (current) use of aspirin; Z79.899 Other long term (current) drug therapy; Z91.119 Patient's noncompliance with dietary regimen due to unspecified reason; R35.1 Nocturia
CPT/HCPCS: 36415; 71046; 80048; 80053; 82728; 82962; 83540; 83550; 83735; 83880; 84100; 84153; 85025; 85027; 94668; 94762; 97110; 97116; 97162; 97165; 97530; 97535; 97802; 99252; G0463

== ENCOUNTER → 2024-03-25 | Outpatient (CLI) | payer MEDICARE, OTHER, SELFPAY ==
[2024-03-25 16:33] LABS: Absolute Lymphocyte Count 1.34 X10^3/uL (0.83-4.51); Absolute Neutrophil Count 3.9 X10^3/uL (2.0-7.7); Basophil# 0.08 X10^3/uL; Basophil% 1.3 % (0-1); Eosinophil# 0.21 X10^3/uL; Eosinophils% 3.3 % (0-5); Hematocrit 34.9 % (40-54); Hemoglobin 11.1 g/dL (13.0-16.5); Lymphocyte # 1.34 X10^3/ul (0.83-4.51); Lymphocyte % 21.2 % (19-41); Mean Corp Hgb Conc 31.8 g/dL (32-36); Mean Corpuscular Hgb 28.5 pg (27.0-32.0); Mean Corpuscular Volume 89.7 fL (80-94); Mean Platelet Vol. 8.9 fl (6.2-12.0); Monocyte# 0.72 X10^3/uL; Monocyte% 11.4 % (0-10); NRBC Flagged by Analyzer 0 % (0-5); Neutrophil # 3.94 X10^3/uL (2.7-7.7); Neutrophil % 62.2 % (47-70); Platelet Count 420 K/mm3 (150-450); RBC Distribution Width CV 15.9 % (11.6-14.6); RBC Distribution Width SD 52.2 fl (35.1-43.9); Red Blood Count 3.89 M/mm3 (4.6-6.2); White Blood Count 6.3 K/mm3 (4.4-11.0)
[2024-03-25 17:06] LABS: Anion Gap 8 (5-15); BUN 23 mg/dL (7-18); BUN/Creat Ratio 15.4 RATIO (10-20); Calcium,Total 9.8 mg/dL (8.5-10.1); Chloride 103 mmol/L (98-107); Cholesterol 130 mg/dL (200); Creatinine, Serum 1.49 mg/dL (0.70-1.30); EST Glomerular Filtration Rate 49 mL/min (>60); Est Glom Filt Rate - Afr Amer 59 mL/min (>60); Glucose 219 mg/dL (74-106); Hemoglobin A1c 6.9 % (3.8-5.6); High Density Lipoprotein 40 mg/dL; Potassium 4.5 mmol/L (3.5-5.1); Sodium Level 138 mmol/L (136-145); Triglycerides 221 mg/dL; Very Low Density Lipoprotein 44 mg/dL (5-40)
== END | disposition home or self-care (01) ==
LOC: LAB 15:35
PROVIDERS: PCP Family Medicine Geriatric Medicine; Referring Provider Family Medicine Geriatric Medicine; Visit Provider Family Medicine Geriatric Medicine
DX: E11.65 Type 2 diabetes mellitus with hyperglycemia (principal); E78.5 Hyperlipidemia, unspecified; I10 Essential (primary) hypertension
CPT/HCPCS: 36415; 80048; 80061; 83036; 85025

== ENCOUNTER → 2024-04-13 | Outpatient (CLI) | payer MEDICARE, OTHER, SELFPAY ==
--- NOTE | 2024-04-13 13:01 | PCM.CR.HP2 ---
CR - History & Physical General Arrival date:: 04/13/24 Arrival time:: 13:01 Date of Referral:: 03/02/24 Date of CR Evaluation:: 04/13/24 Referring Physician: Dr. Obregon Primary Diagnosis: CABG History of Present Cardiac Event Onset Date Coronary Artery Bypass Graft:: Yes (02/21/2024) Medications Ambulatory Orders ?Medication ?Instructions ?Recorded multivitamin with folic acid 400 1 tab PO DAILY supplement 10/13/13 mcg tablet (Thera) ascorbic acid (vitamin C) 500 mg 500 mg PO BID supplement 07/27/20 tablet semaglutide 1 mg/dose (2 mg/1.5 1 mg subcut QWEEK DIABETES 04/20/21 mL) subcutaneous pen injector enzalutamide 40 mg capsule 160 mg PO DAILY cancer 01/06/24 leuprolide 7.5 mg (1 month) 22.5 mg subcut .[id number] 01/06/24 subcutaneous syringe (Eligard) cancer/heomine repacement albuterol sulfate 90 mcg/actuation 2 puff inhalation BID PRN 02/05/24 aerosol inhaler shortness of breath or wheezing aspirin 81 mg tablet,delayed 81 mg PO DAILY heart health #90 02/18/24 release (Adult Aspirin Regimen) tabs acetaminophen 500 mg tablet 1,000 mg PO Q8 PRN pain 02/28/24 ferrous sulfate 325 mg (65 mg 325 mg PO Q48@0800 #30 tabs 03/12/24 iron) tablet (FeroSul) furosemide 40 mg tablet 40 mg PO DAILY PRN weight gain #7 03/12/24 tabs guaifenesin 600 mg tablet, 600 mg PO BID #20 tabs 03/12/24 extended release 12 hr (Mucinex) insulin NPH isoph U-100 human 100 See Rx Instructions .Route 03/12/24 unit/mL (3 mL) subcutaneous pen .COMPLEX #15 mL (Humulin N NPH U-100 Insulin KwikPen) insulin NPH-regular 70-30 U-100 See Rx Instructions .Route 03/12/24 insulin 100 unit/mL subcutaneous .COMPLEX #15 mL pen oxycodone 5 mg tablet 5 mg PO Q6H PRN pain 7 days #28 03/12/24 tabs glimepiride 4 mg tablet 4 mg PO BID 03/27/24 rosuvastatin 20 mg tablet 40 mg PO QHS cholesterol 03/27/24 metoprolol tartrate 25 mg tablet 12.5 mg (1/2 x 25 mg) PO BID blood 04/10/24 pressure #60 tabs Allergies Allergies Penicillins Allergy (Verified 03/27/24 13:27) Rash tadalafil (From Cialis) Adverse Reaction (Verified 03/27/24 13:27) PT UNSURE OF REACTION HEADACHE,BLURRY VISION Sleep Disorder Evaluation Hx of Sleep Apnea: Yes Do you snore loudly (louder than talking or can be heard through closed doors)?: Yes Do you often feel tired/ fatigued/ sleepy during daytime?: Yes Has anyone observed you stop breathing during sleep?: Yes History of Hypertension (for STOP score): Yes STOP Results: Positive Advanced Directives Advanced Directives Power of Well Driller: Yes Living Will: Yes Advance Directives Information Provided: Yes Advance Directives on File: Yes DNR Order?:: No Past Medical History Covid-19 Screening Physicial Symptoms Other Clinical Concerns Exposure Risk Pertinent Comorbidities 65 years or older:: Yes Has a serious heart condition:: Yes Diabetic:: Yes Has chronic kidney disease undergoing dialysis:: Yes Past Medical Illness Past Medical History (Updated 03/27/24 @ 13:48 by Karen Arora PA, PA) Postoperative atrial fibrillation I97.89, I48.91 History of sleep apnea Z86.69 Nocturia R35.1 Chronic renal failure, stage 3 (moderate) N18.30 GFR varies between stage IIIa-IIIb. Abnormal echocardiogram R93.1 Hyperlipidemia E78.5 Segmental and somatic dysfunction of cervical region M99.01 DDD (degenerative disc disease) Segmental and somatic dysfunction of pelvic region M99.05 Segmental and somatic dysfunction of lumbar region M99.03 Segmental and somatic dysfunction of thoracic region M99.02 Insulin dependent diabetes mellitus DM 1.5. 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 On Xtandi. Ureteral obstruction, left N13.5 Past Surgical History Past Surgical History (Updated 03/27/24 @ 13:48 by Karen ANDRE, PA) S/P CABG x 4 (02/21/24) Z95.1 02/21/2024 at [facility] by Dr. Mayor. CASTELAN to mid-LAD; ao-dX2 w/rsvg; ao-ramus w/rsvg; ao-om1 w/svg; EVH left leg. Hx of cystoscopy Z98.890 L URETERAL STENT CHANGE 03/29/21 Hx of right cataract extraction Z98.41 Hx of colonoscopy Z98.890 History of radical prostatectomy Z90.79 S/P cystoscopy with ureteral stent placement Z96.0 x2 last 11/2020 Family History Summary Family History unable to obtain Social History Smoking History Smoking Status: Never smoker Alcohol Use Alcohol Usage: No Substance Abuse Hx Substance Use: No Occupation Occupation (List type of work in comments):: Retired Hobbies, Recreation, Social Activities Hobbies: Other Recreational Activities: I am able to engage in all my recreational activities Social Environment Status Marital Status: Current Living Arrangements Living Environment:: Spouse Children How many children do you have?: 3 Do any of your children live nearby?: No Safety Do you feel safe in your surroundings?: Yes Assistance Do you need any assistance at home?: no Review of Systems Review of Systems Hints Review of Present Symptoms: Reports Shortness of Breath with Exertion, Dizziness/Lightheadedness and Fatigue; Denies Shortness of Breath at Rest, PVD, Operative Discomfort, Angina, Wound Healing, Heart Arrhythmia/Irregularities or Sexual Changes Pain Is Patient Pain Free?: No Pain Location: back Risk Factor Assessment Chief Complaint Chief Complaint: CABG Vital Signs Pulse Ox: 97 Blood Pressure: 116/76 Pulse Pulse Rate: 80 Diabetes Diabetic History: Type II Nutrition Referral for Diabetes: Yes Obesity Height: 6 ft Weight:: 195 lb Weight in Pounds: 195.0 lbs Body Mass Index (BMI): 26.4 Physical Inactivity Physical Inactivity: Reg Exercise 30 min/day Risk Stratification Risk Guidelines: Lowest Risk: Risk Factor for Smoking, Moderate Risk: Risk Factor for Obesity, Risk Factor for Sedentary Lifestyle and Risk Factor for Depression and Highest Risk: Risk Factor for Dyslipidemia, Risk Factor for Diabetes and Risk Factor for Hypertension For Smoking Smoking Risk Guidelines For Dyslipidemia Dyslipidemia Risk Guidelines For Diabetes Mellitus Diabetes Risk Guidelines For Obesity/Overweight Obesity/Overweight Risk Guidelines For Hypertension Hypertension Risk Guidelines For Sedentary Lifestyle Sedentary Lifestyle Risk Guidelines For Depression Depression Risk Guidelines Family History Family History unable to obtain Motivation Motivation to Participate On a scale of 1 to 10, how prepared are you to commit to attending program?: 10 What do you see as barriers to successfully being able to complete the program?: nothing What do you see as the benefits of succesfully completing the program? In other words, what do you hope to get out of participating in the program?: improve muscle strength and endurance Are there issues you are dealing with that will interfere with completing the program?: no Do you have a spouse or signficant other, family or friends who will help support you to complete the program?: yes
[2024-04-13 13:07] VITALS: BP 116/76; PULSE 80; O2SAT 97
--- NOTE | 2024-04-13 13:07 | CR.ITP_ITS ---
Diagnosis General Information Admitting Diagnosis: CABG Personal Learning Style:: Audio/Visual Barriers to Learning: No Barriers Stage of change r/t lifestyle modifications:: Contemplation Gave educational material for:: Treating Heart Disease, How The Heart Works, What it means to have Heart Disease, How Coronary Artery Disease is Diagnosed, Heart Procedures, What Heart Medications Do, Risk Factors & Modifications, Living an Active Life, Nutrition, Emotions & Heart Disease, Stress Management & Relaxation and Sleep Disorders & Heart Disease Education/Goals Cardiac Rehabilitation Goals Personal Goals: Initial Assessment: Improve energy level, Participate in home exercise program, Get back to work, or to resume activities faster, Improve knowledge of cardiac disease, Improve muscle strength and endurance, Improve diet and eating habits (eat healthier) and Control risk factors (learn risk factor modification) Scale for measuring improvement of personal goals Diagnosis & Disease Process Outcomes/Goals: Pt IDs own risk factors & lifestyle modifications by Session 10, Verbalizes symptoms of angina & response by session 3., Pt independently manages and Other Additional Outcomes/Goals: Plan/Interventions: Assist Pt to ID & engage in lifestyle modification to reduce CVD risk, Instruct on individual risk factors, Review symptoms of angina & emergency actions, Review secondary diagnosis & identify educational needs. and Other see comment 30 day Reassessments:: Not Met 30 day Reassessments:: Not Met 30 day Reassessments:: Not Met 30 day Reassessments:: Not Met Final Reassessments:: Not Met Safety Referral to Physical Therapy: No Referral to [facility] Case Management: No Fall Risk Assessed:: Yes Assistive Devices:: None Exercise - Initial Assessment Visit Date of Eval: 04/13/24 (initial eval ) Mets: Pre-: >3 METS for 30 minutes by discharge, >5 METS for 30 minutes by discharge, >7 METS for 30 minutes by discharge and Unable to meet goal due to: (see comment below) Physician Prescribed Exercise Modalities: Treadmill, Schwinn Airdyne AD-7, SciFit Stepper, SciFit Pro-II Ergometer and SciFit Lateral Drill Grinder Frequency: 3x/week for 12 weeks [36 sessions] Intensity: 60-80% of age predicted maximum heart rate reserve Duration: 30 - 45 minutes Current METSs:: 3 Target Heart Rate:: 86-107 Resting Blood Pressure: 116/76 EKG Type: SR Outcomes & Goals Goals:: Verbalizes understanding of THR, RPE & goal METS by session 6, Documents in home exercise log/reports 30 min aerobic 5 day/wk by DC, Demonstrates accurate pulse taking by DC and Other additional outcome/goals: see below Intervention & Plan Exercise Program Goals: Instruct on personal THR & RPE, Instruct on MET level & personal MET goal, Show patient to take own pulse /validate performance until accurate, Instruct on home exercise and Other additional plan/int Physical Activity Home Exercise Physical Activity - Home Exercise: Safe Exercise, Warm-up, Self-monitoring, Cool-Down, Home Exercise > 30 min Daily and Sitting Time <3 hours/daily Outcomes & Goals Outcomes/Goals: Demonstrates correct Warm-up/exercise Cool-Down (S3) if = 2.5 METs, Verbalizes symptoms of exercise intolerance by Session 3 (S3), Demonstrate safe equipment use (S3) & follows exercise prescrition (6) and Other: See below Intervention & Plan Plan/Intervention: Instruct warm-up & cool-down if exercising at > 2 METs, Instruct on symptoms of exercise intolerance & actions to take, Instruct & monitor on saf, Assess intial functional capacity & safety risk and Other See below Nutrition - Initial Assessment Program Goals Nutrition Program Goals Patient has diagnosis of Hyperlipidemia (ICD E78)?: Yes Visit Date of Eval: 04/13/24 (initial eval ) Cholesterol/Lipids (Other Core Measures) Determine presence & major risk factors that modify LDL goal: Hypertension or hypertensive medication, Low HDL cholesterol <40 mg/dL*, Family history of premature CHD in Male < 55 years: female <65 yearsFa and Age men > 45 years; women >/= 55 years Outcomes/Goals: Pt IDs own risk factors & lifestyle modifications by Session 10, Verbalizes symptoms of angina & response by session 3., Pt independently manages and Other Additional Outcomes/Goals: Intervention/Plan: Advocate for lipid panel cholesterol medication if applicable, Instruct on personal lipid levels & lipid goals/NCEP guidelines, Instruct on cholesterol and Other additional plan/int Referral to dietitian:: Yes Diabetes (Other Core Measures) Diabetes Type: Diagnosis Type II ICD-10 E11 Insulin dependent injection/pump?: Yes Non-Insulin Dependent?: Yes Do you monitor your blood sugar at home?: Yes Referral to Diabetic Clinic:: Yes Outcomes/Goals:: Able to state symptoms of, Able to state, Able to state and Other additional Intervention/Plan:: Instruct on, Refer to, Instruct on and Other Weight Mgt (Other Care) Height: 6 ft Weight:: 195 lb BMI: 26.4 Diagnosis Overweight/Obesity BMI> 30% ICD-10 E66: No Diagnosis High BMI/Morbid Obesity BMI> 35% ICD-10 Z68: No Outcomes/Goals: Pt sets, maintains & shows weight loss goal & trend during rehab and Other additional outcomes/goals Intervention/Plan: Instruct on ideal BMI & set weight loss goal w/patient, Assist pt to ID & incorporate diet changes for weight loss by S9, Refer to Structured Weight Loss program as appropriate, Encourage goal of using 250- 300dcal per session for weight loss and Other additional plan/interventions Healthy Eating Habits Will attend diet classes:: Yes Outcomes/Goals:: Consume diet rich in vegs,fruits,whole grain/high fiber,fish,lean meat, Limit sat/trans fats,cholesterol & added salts & sugars and Other additional outcome/goals: Intervention/Plan:: Assess current eating habits and Other Additional plan/interventions Education Gave educational materials for:: Signs & symptoms of hypoglycemia, Signs & symptoms of hyperglycemia, Relate diabetes to coronary artery disease and Healthy eating Core - Initial Assessment Medication Compliance Preventative Medication(s):: Aspirin, Statin/lipid and Beta quynh H/O mental health issues: depression, anxiety, or addiction?: No Doesn?t believe in the benefits of treatment?: No Believes medications are unnecessary or harmful?: No Has a concern about medication side effects?: No Expresses concern over the cost of medications?: No Outcomes/Goals: Verbalizes medications,desired effect & common side effects @ DC, Pt self-reports following medication regimen, Keeps card in wallet w/medications listed by DC and Other additional outcome/goals: Interventions/plans: Instruct on medication effects & side effects, Review medication list w/patient every two weeks, Instruct importance of taking meds as ordered & assist problem solving and Other additional Tobacco Use Tobacco Use: Non-smoker Do you use smokeless tobacco?: No Outcomes/Goals: Smoking cessation achieved or maintained by discharge, Identify aids/strategies for achieving smoking cessation by session 6 and Other a dditional outcome/goals Interventions/plan: Instruct on effects of smoking & provide smoking cessation resource, Assist pt to set quit date & provide encouragement, Assist pt to develop strategies to achieve/maintain quit date, Assist pt w/nicotine replacement & medication for cessation success and Other additional plan/interventions Hypertension Hypertension Diagnosis:: Hypertension ICD-10 I10 Resting Blood Pressure:: 116/76 [place] [employer] Hypertension Guidelines Outcomes/Goals: Able to verbalize/achieve optimal blood pressure <130/80, Incorporates diet changes & exercise for blood pressure control by DC and Other additional outcomes/goals Interventions/plan: Instruct on optimal blood pressure, hypertension & medications, Instruct on effects of sodium, alcohol, stress, exercise &hypertension and Other additional plan/interventions Tobacco Cessation Referral Smoking Cessation Referral:: No Individual Education/Counseling:: No Education Schedule Given:: Yes Psychosocial - Initial Assess VIsit Date of Eval: 04/13/24 (initial eval) History of previous Mental disease:: No Target Goals Target Goals Outcomes/Goals: See list Psychosocial Outcomes/Goals:: ID's personal stressors & 2 strategies to manage stress by discharge and Other Additional outcome/goals: Intervention/Plan: See List Interventions/Plan:: Assess stressors,coping strategies & signs of derpression on admission, Instruct/assist pt to develop coping & personal stress Mgt strategies, Refer to Behavioral Health if appropriate, Refer to Physician if appropriate, Instruct patient to recognize signs & symptoms of depression, Instruct patient to recog and Other additional plan/intervention Patient Health Questionnaire PHQ-9 Screening Initial Assessment: 1. Little interest or pleasure in doing things: Not at all 2. Feeling down, depressed, or hopeless: Not at all 3. Trouble falling or staying asleep, or sleeping too much: Several days 4. Feeling tired or having little energy: More than half the days 5. Poor appetite or overeating: More than half the days 6. Feeling bad about yourself -- or that you are a failure or have let yourself or your family down: Not at all 7. Trouble concentrating on things, such as reading the newspaper or watching television: Not at all 8. Moving or speaking so slowly that other people could have noticed. Or the opposite - being so fidgety or restless that you have been moving around a lot more than usual: Not at all 9. Thoughts that you would be better off , or of hurting yourself in some way: Not at all How difficult have these problems made it for you to do your work, take care of things at home, or get along with other people?: Somewhat difficult Total Score: 5 JOHANA-Q SV Test Statements CAD is a disease of the arteries in the heart: False Examples of risk factors for heart disease: True Angina is chest pain or discomfort: True The benefits of resistance training include: True Eating more meat and dairy products: False Anti-platelet medications such as aspirin are important: True The only effective way to manage stress: False An exercise warm-up slowly increases heart rate: True Prepared, processed foods usually have high sodium: True Depression is common after a heart attack: True The statin medications lower cholesterol: True To control blood pressure, lower the amount of sodium: True If someone gets chest discomfort during walking: False Transfats are partially hydrogenated vegetable oils: True Sleep apnea that is not treated increases the risk: False To control cholesterol, one should become a vegetarian: False Someone knows if he/she is exercising at the right level: I Don't Know Diabetes cannot be prevented with exercise & health eating: True Stress is a large risk for heart attack: True A diet that can help lower blood pressure is rich in: True Total Score Total Correct Responses: 18 Self-Efficacy 6-Item Scale Initial Assessment: We would like to know how confident you are in doing certain activities. Please select your confidence level for: Fatigue Select Number: 5 Physical Discomfort or Pain Select Number: 7 Emotional Distress Select Number: 8 Other Symptoms or Health Problems Select Number: 7 Different Tasks and Activities Select Number: 6 Medication Select Number: 5 Total Score:: 6 Nutrition Survey Nutrition Survey Instructions Scoring Instructions Nutrition Survey Initial: Have you lost >10 lbs over the past 2 months without trying?: No Are you following a special diet at home for diabetes, low fat, or low salt?: Yes Are you interested in meeting with a dietitian for help understanding your diet?: Yes Do you eat less than 3 meals a day?: Yes Do you eat fatty meats (saul, sausage, ribs, etc), fried foods, desserts, large amounts of salad dressings, margarine, butter, or cheese most days?: No Do you have food allergies? [Enter types in comment field]: No Do you eat in restaurants more than 3 times a week?: No Do you season food with salt, seasoning salt, or garlic salt?: Yes Do you used canned, boxed, frozen meals, or soups, seasoning packets?: No Total Score:: 4 Exercise - 30-day Assessment Physician Prescribed Exercise Modalities: Treadmill, Schwinn Airdyne AD-7, SciFit Stepper, SciFit Pro-II Ergometer and SciFit Lateral Drill Grinder Exercise - 60-day Assessment Physician Prescribed Exercise Modalities: Treadmill, Schwinn Airdyne AD-7, SciFit Stepper, SciFit Pro-II Ergometer and SciFit Lateral Drill Grinder Exercise - 90-day Assessment Physician Prescribed Exercise Modalities: Treadmill, Schwinn Airdyne AD-7, SciFit Stepper, SciFit Pro-II Ergometer and SciFit Lateral Drill Grinder Exercise - Final/Discharge Physician Prescribed Exercise Modalities: Treadmill, Schwinn Airdyne AD-7, SciFit Stepper, SciFit Pro-II Ergometer and SciFit Lateral [place] Frequency: 3x/week for 12 weeks [36 sessions] Intensity: 60-80% of age predicted maximum heart rate reserve Current METSs:: 3 Target Heart Rate:: 86-107 Nutrition - 30-Day Assessment Weight Mgt (Other Care) Height: 6 ft Weight:: 195 lb BMI: 26.4 Nutrition - 60-Day Assessment Weight Mgt (Other Care) Height: 6 ft Weight:: 195 lb BMI: 26.4 Core - Final Assessment Hypertension Resting Blood Pressure:: 116/76 [place] [employer] Hypertension Guidelines Core - 60-Day Assessment Hypertension Resting Blood Pressure:: 116/76 [place] [employer] Hypertension Guidelines Psychosocial - 30-Day Assess Target Goals Target Goals Psychosocial - 60-Day Assess Target Goals Target Goals Psychosocial - 90-Day Assess Target Goals Target Goals Psychosocial - Final Assessmen Target Goals Target Goals Nutrition - 90-Day Assessment Weight Mgt (Other Care) Height: 6 ft Weight:: 195 lb BMI: 26.4 Nutrition - Final Assessment Program Goals Patient has diagnosis of Hyperlipidemia (ICD E78)?: Yes Weight Mgt (Other Care) Height: 6 ft Weight:: 195 lb BMI: 26.4
[2024-04-13 13:13] VITALS: BP 116/76
[2024-04-13 13:35] VITALS: BMI 26.4
[2024-04-13 14:01] VITALS: BMI 26.4
== END | disposition home or self-care (01) ==
LOC: CR 12:39
PROVIDERS: PCP Family Medicine Geriatric Medicine; Referring Provider Internal Medicine Cardiovascular Disease; Visit Provider Internal Medicine Cardiovascular Disease
DX: Z95.1 Presence of aortocoronary bypass graft (principal); C79.51 Secondary malignant neoplasm of bone; I48.91 Unspecified atrial fibrillation; C61 Malignant neoplasm of prostate; E11.22 Type 2 diabetes mellitus with diabetic chronic kidney disease; N18.30 Chronic kidney disease, stage 3 unspecified; I97.89 Other postprocedural complications and disorders of the circulatory system, not elsewhere classified; Z86.69 Personal history of other diseases of the nervous system and sense organs; R35.1 Nocturia; I12.9 Hypertensive chronic kidney disease with stage 1 through stage 4 chronic kidney disease, or unspecified chronic kidney disease; R93.1 Abnormal findings on diagnostic imaging of heart and coronary circulation; E78.5 Hyperlipidemia, unspecified; M99.01 Segmental and somatic dysfunction of cervical region; M99.05 Segmental and somatic dysfunction of pelvic region; M99.03 Segmental and somatic dysfunction of lumbar region; M99.02 Segmental and somatic dysfunction of thoracic region; N13.5 Crossing vessel and stricture of ureter without hydronephrosis; R06.83 Snoring; Z98.890 Other specified postprocedural states; Z98.41 Cataract extraction status, right eye; Z90.79 Acquired absence of other genital organ(s); Z96.0 Presence of urogenital implants; R06.02 Shortness of breath; R53.83 Other fatigue

== ENCOUNTER 2024-04-29 14:30 | Outpatient (RCR) | payer MEDICARE, OTHER, SELFPAY ==
[2024-04-13 13:21] VITALS: BMI 26.4
== END 2024-05-03 23:59 ==
LOC: CR 14:30
PROVIDERS: PCP Family Medicine Geriatric Medicine; Visit Provider Internal Medicine Cardiovascular Disease
DX: I25.10 Atherosclerotic heart disease of native coronary artery without angina pectoris (principal); Z95.1 Presence of aortocoronary bypass graft; E78.2 Mixed hyperlipidemia; I10 Essential (primary) hypertension
CPT/HCPCS: 93798

== ENCOUNTER 2024-06-03 14:30 | Outpatient (RCR) | payer MEDICARE, OTHER, SELFPAY ==
[2024-04-13 14:01] VITALS: BMI 26.4
--- NOTE | 2024-05-13 05:31 | CR.ITP_ITS ---
Exercise - Initial Assessment Visit Session #:: 10 Physician Prescribed Exercise Modalities: Treadmill, Rower, Schwinn Airdyne AD-7, SciFit Stepper, SciFit Pro- II Ergometer and SciFit Lateral Photostat Operator Helper Nutrition - Initial Assessment Weight Mgt (Other Care) Height: 6 ft Weight:: 191 lb BMI: 25.9 Psychosocial - Initial Assess Target Goals Target Goals Referral to Behavioral Health PS - Interventions: Yes: Attend Stress Management Classes and No: Referral to Behavioral Health if PHQ-9 score >9:, No: Referral to [facility] and No: Referral to Physician if PHQ-9 if score is 5-9: Patient Health Questionnaire PHQ-9 Screening 30-Day Re-eval Assessment: 1. Little interest or pleasure in doing things: Not at all 2. Feeling down, depressed, or hopeless: Not at all 3. Trouble falling or staying asleep, or sleeping too much: Several days 4. Feeling tired or having little energy: More than half the days 5. Poor appetite or overeating: More than half the days 6. Feeling bad about yourself -- or that you are a failure or have let yourself or your family down: Not at all 7. Trouble concentrating on things, such as reading the newspaper or watching television: Not at all 8. Moving or speaking so slowly that other people could have noticed. Or the opposite - being so fidgety or restless that you have been moving around a lot more than usual: Not at all 9. Thoughts that you would be better off , or of hurting yourself in some way: Not at all How difficult have these problems made it for you to do your work, take care of things at home, or get along with other people?: Somewhat difficult Total Score: 5 Self-Efficacy 6-Item Scale 30-Day Re-eval Assessment: We would like to know how confident you are in doing certain activities. Please select your confidence level for: Fatigue Select Number: 6 Physical Discomfort or Pain Select Number: 7 Emotional Distress Select Number: 8 Other Symptoms or Health Problems Select Number: 8 Different Tasks and Activities Select Number: 7 Medication Select Number: 6 Total Score:: 7 Nutrition Survey Nutrition Survey Instructions Scoring Instructions Exercise - 30-day Assessment Visit Date of Eval: 05/13/24 Session #:: 10 Physician Prescribed Exercise Modalities: Treadmill, Rower, Schwinn Airdyne AD-7, SciFit Stepper, SciFit Pro- II Ergometer and SciFit Lateral [place] Frequency: 3x/week for 12 weeks [36 sessions] Intensity: 60-80% of age predicted maximum heart rate reserve Duration: 30 - 45 minutes Current METSs:: 3.0 Target Heart Rate:: 86-107 Current RPE:: 12-13 Maximum Excercise HR:: 106 Resting Blood Pressure: 100/62 Maximum Exercise Blood Pressure: 134/68 EKG Type: NSR to sinus tach w/rare PVCs, PAC. Current Physical Activity or Exercising minutes: 36:28 Outcomes & Goals Goals:: Verbalizes understanding of THR, RPE & goal METS by session 6, Documents in home exercise log/reports 30 min aerobic 5 day/wk by DC and Demonstrates accurate pulse taking by DC Intervention & Plan Exercise Program Goals: Instruct on personal THR & RPE, Instruct on MET level & personal MET goal, Show patient to take own pulse /validate performance until accurate and Instruct on home exercise 30-day Reassessments 30 day Reassessments:: Met Physical Activity Home Exercise Physical Activity - Home Exercise: Safe Exercise, Warm-up, Self-monitoring, Cool-Down, Home Exercise > 30 min Daily and Sitting Time <3 hours/daily Outcomes & Goals Outcomes/Goals: Demonstrates correct Warm-up/exercise Cool-Down (S3) if = 2.5 METs, Verbalizes symptoms of exercise intolerance by Session 3 (S3) and Demonstrate safe equipment use (S3) & follows exercise prescrition (6) Intervention & Plan Plan/Intervention: Instruct warm-up & cool-down if exercising at > 2 METs, Instruct on symptoms of exercise intolerance & actions to take, Instruct & monitor on saf and Assess intial functional capacity & safety risk 30-day Reassessments 30 day Reassessments:: Met Exercise - 60-day Assessment Physician Prescribed Exercise Modalities: Treadmill, Rower, Schwinn Airdyne AD-7, SciFit Stepper, SciFit Pro- II Ergometer and SciFit Lateral Photostat Operator Helper Exercise - 90-day Assessment Physician Prescribed Exercise Modalities: Treadmill, Rower, Schwinn Airdyne AD-7, SciFit Stepper, SciFit Pro- II Ergometer and SciFit Lateral Photostat Operator Helper Exercise - Final/Discharge Physician Prescribed Exercise Modalities: Treadmill, Rower, Schwinn Airdyne AD-7, SciFit Stepper, SciFit Pro- II Ergometer and imedo Lateral [place] Nutrition - 30-Day Assessment Program Goals Nutrition Program Goals Patient has diagnosis of Hyperlipidemia (ICD E78)?: Yes Visit Date of Eval: 05/13/24 Session #:: 10 Cholesterol/Lipids (Other Core Measures) Determine presence & major risk factors that modify LDL goal: Hypertension or hypertensive medication, Family history of premature CHD in Male < 55 years: female <65 yearsFa and Age men > 45 years; women >/= 55 years Outcomes/Goals: Pt IDs own risk factors & lifestyle modifications by Session 10, Verbalizes symptoms of angina & response by session 3. and Pt independently manages Intervention/Plan: Instruct on personal lipid levels & lipid goals/NCEP guidelines and Instruct on cholesterol Referral to dietitian:: Yes 30-day Reassessments:: Progressing Diabetes (Other Core Measures) Diabetes Type: Diagnosis Type II ICD-10 E11 Insulin dependent injection/pump?: Yes Non-Insulin Dependent?: Yes Do you monitor your blood sugar at home?: Yes Referral to Diabetic Clinic:: Yes Outcomes/Goals:: Able to state symptoms of, Able to state and Able to state Intervention/Plan:: Instruct on, Refer to and Instruct on 30-day Reassessments:: Progressing Reassessment Notes & Comments:: BS Range 157-338 Weight Mgt (Other Care) Not Applicable: Yes Height: 6 ft Weight:: 191 lb BMI: 25.9 Diagnosis Overweight/Obesity BMI> 30% ICD-10 E66: No Diagnosis High BMI/Morbid Obesity BMI> 35% ICD-10 Z68: No Outcomes/Goals: Pt sets, maintains & shows weight loss goal & trend during rehab Intervention/Plan: Instruct on ideal BMI & set weight loss goal w/patient 30 day Reassessments:: Met Healthy Eating Habits Will attend diet classes:: Yes Outcomes/Goals:: Consume diet rich in vegs,fruits,whole grain/high f iber,fish,lean meat and Limit sat/trans fats,cholesterol & added salts & sugars Intervention/Plan:: Assess current eating habits 30-day Reassessments:: Progressing Education Gave educational materials for:: Signs & symptoms of hypoglycemia, Signs & symptoms of hyperglycemia, Relate diabetes to coronary artery disease and Healthy eating Nutrition - 60-Day Assessment Weight Mgt (Other Care) Height: 6 ft Weight:: 191 lb BMI: 25.9 Core - 30-Day Assessment Visit Date of Eval: 05/13/24 Session #:: 10 Medication Compliance Preventative Medication(s):: Aspirin, Statin/lipid and Beta quynh H/O mental health issues: depression, anxiety, or addiction?: No Doesn?t believe in the benefits of treatment?: No Believes medications are unnecessary or harmful?: No Has a concern about medication side effects?: No Expresses concern over the cost of medications?: No Outcomes/Goals: Verbalizes medications,desired effect & common side effects @ DC, Pt self-reports following medication regimen and Keeps card in wallet w/medications listed by DC Interventions/plans: Instruct on medication effects & side effects and Instruct importance of taking meds as ordered & assist problem solving 30-day Reassessments:: Met Tobacco Use Tobacco Use: Non-smoker Hypertension Hypertension Diagnosis:: Hypertension ICD-10 I10 Resting Blood Pressure:: 100/62 [place] [employer] Hypertension Guidelines Peak Exercise Blood Pressure:: 134/68 Outcomes/Goals: Able to verbalize/achieve optimal blood pressure <130/80 and Incorporates diet changes & exercise for blood pressure control by DC Interventions/plan: Instruct on optimal blood pressure, hypertension & medications and Instruct on effects of sodium, alcohol, stress, exercise &hypertension 30 day Reassessments:: Met Tobacco Cessation Referral Smoking Cessation Referral:: No Individual Education/Counseling:: No Education Schedule Given:: Yes Psychosocial - 30-Day Assess VIsit Date of Eval: 05/13/24 Session #:: 10 Not Applicable: Yes History of previous Mental disease:: No Target Goals Target Goals Psychosocial Test Tool Used:: PHQ-9 Questionnaire phq-9 Severity Referral to Behavioral Health PS - Interventions: Yes: Attend Stress Management Classes and No: Referral to Behavioral Health if PHQ-9 score >9:, No: Referral to [facility] and No: Referral to Physician if PHQ-9 if score is 5-9: Outcomes/Goals: See list Psychosocial Outcomes/Goals:: ID's personal stressors & 2 strategies to manage stress by discharge Intervention/Plan: See List Interventions/Plan:: Instruct/assist pt to develop coping & personal stress Mgt strategies, Instruct patient to recognize signs & symptoms of depression and Instruct patient to recog 30-day Reassessments: 30 day Reassessments:: Progressing Psychosocial - 60-Day Assess Target Goals Target Goals Referral to Behavioral Health PS - Interventions: Yes: Attend Stress Management Classes and No: Referral to Behavioral Health if PHQ-9 score >9:, No: Referral to [facility] and No: Referral to Physician if PHQ-9 if score is 5-9: Outcomes/Goals: See list Psychosocial Outcomes/Goals:: ID's personal stressors & 2 strategies to manage stress by discharge Psychosocial - 90-Day Assess Target Goals Target Goals Referral to Behavioral Health PS - Interventions: Yes: Attend Stress Management Classes and No: Referral to [facility] if PHQ-9 score >9:, No: Referral to [facility] and No: Referral to Physician if PHQ-9 if score is 5-9: Psychosocial - Final Assessmen Target Goals Target Goals Referral to Behavioral Health PS - Interventions: Yes: Attend Stress Management Classes and No: Referral to Behavioral Health if PHQ-9 score >9:, No: Referral to [facility] and No: Referral to Physician if PHQ-9 if score is 5-9: Nutrition - 90-Day Assessment Weight Mgt (Other Care) Height: 6 ft Weight:: 191 lb BMI: 25.9 Nutrition - Final Assessment Weight Mgt (Other Care) Height: 6 ft Weight:: 191 lb BMI: 25.9
[2024-05-13 05:40] VITALS: BP 100/62; BMI 25.9
== END 2024-06-03 23:59 ==
LOC: CR 14:30
PROVIDERS: PCP Family Medicine Geriatric Medicine; Visit Provider Internal Medicine Cardiovascular Disease
DX: Z95.1 Presence of aortocoronary bypass graft (principal); I25.10 Atherosclerotic heart disease of native coronary artery without angina pectoris; E78.2 Mixed hyperlipidemia; I10 Essential (primary) hypertension
CPT/HCPCS: 93798

== ENCOUNTER → 2024-06-09 | Outpatient (CLI) | payer MEDICARE, OTHER, SELFPAY ==
[2024-05-13 05:40] VITALS: BMI 25.9
[2024-06-09 13:51] LABS: Absolute Lymphocyte Count 1.64 X10^3/uL (0.83-4.51); Absolute Neutrophil Count 3.7 X10^3/uL (2.0-7.7); Basophil# 0.04 X10^3/uL; Basophil% 0.6 % (0-1); Eosinophils% 3.2 % (0-5); Hematocrit 38.5 % (40-54); Hemoglobin 12.5 g/dL (13.0-16.5); Lymphocyte # 1.64 X10^3/ul (0.83-4.51); Mean Corp Hgb Conc 32.5 g/dL (32-36); Mean Corpuscular Hgb 29.5 pg (27.0-32.0); Mean Corpuscular Volume 90.8 fL (80-94); Mean Platelet Vol. 9.1 fl (6.2-12.0); Monocyte# 0.72 X10^3/uL; Monocyte% 11.4 % (0-10); NRBC Flagged by Analyzer 0 % (0-5); Neutrophil # 3.67 X10^3/uL (2.7-7.7); Neutrophil % 58.2 % (47-70); Platelet Count 334 K/mm3 (150-450); RBC Distribution Width CV 14.7 % (11.6-14.6); RBC Distribution Width SD 49.2 fl (35.1-43.9); Red Blood Count 4.24 M/mm3 (4.6-6.2); White Blood Count 6.3 K/mm3 (4.4-11.0)
[2024-06-09 14:14] LABS: Vitamin D,25 Hydroxy 49.9 ng/mL
[2024-06-09 14:19] LABS: PSA,Total- Diagnostic < 0.01 ng/mL (0.0-4.0)
[2024-06-09 14:24] LABS: ALB/GLOB Ratio 0.9 RATIO (0.9-2.4); AST(SGOT) 14 U/L (15-37); Alanine Aminotransfer ALT/SGPT 14 U/L (16-61); Albumin, Serum 3.5 g/dL (3.2-5.0); Alkaline Phosphatase 117 U/L (45-117); Anion Gap 9 (5-15); BUN 31 mg/dL (7-18); Calcium,Total 9.8 mg/dL (8.5-10.1); Chloride 100 mmol/L (98-107); Creatinine, Serum 1.41 mg/dL (0.70-1.30); EST Glomerular Filtration Rate 52 mL/min (>60); Est Glom Filt Rate - Afr Amer 63 mL/min (>60); Glucose 330 mg/dL (74-106); Protein, Total 7.5 g/dL (6.4-8.2); Sodium Level 136 mmol/L (136-145); Thyroid Stim Hormone (TSH) 2.89 uIU/mL (0.358-3.74)
== END | disposition home or self-care (01) ==
LOC: POLAB3 13:32
PROVIDERS: PCP Family Medicine Geriatric Medicine; Visit Provider Urology
DX: C61 Malignant neoplasm of prostate (principal); E11.65 Type 2 diabetes mellitus with hyperglycemia; R97.20 Elevated prostate specific antigen [PSA]; I10 Essential (primary) hypertension; E55.9 Vitamin D deficiency, unspecified
CPT/HCPCS: 36415; 80053; 82306; 84153; 84443; 85025

== ENCOUNTER → 2024-07-01 | Outpatient (CLI) | payer MEDICARE, OTHER, SELFPAY ==
[2024-06-12 09:48] VITALS: BMI 26.2
--- NOTE | 2024-07-01 12:47 | RAD_ITS ---
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 FINDINGS: LINES/DEVICES: None. LUNGS: Hyperexpansion best seen on lateral view. Mild diffuse interstitial coarsening. Mild linear atelectasis or scarring in the left lower lung. No consolidation, edema or effusion. No pneumothorax. MEDIASTINUM AND CARDIOVASCULAR STRUCTURES: Cardiac silhouette not enlarged. Mild aortic atherosclerosis. BONES AND SOFT TISSUES: Sternotomy wires are midline and intact.. RAD/Chest PA and Lateral IMPRESSION: Mild linear atelectasis or scarring left lower lung. Findings compatible with chronic obstructive pulmonary disease. No evidence of acute airspace disease. Old sternotomy changes Electronically Signed: Mushtaq Elliott MD at 8:12 EDT ,
[2024-07-01 13:05] LABS: Absolute Lymphocyte Count 1.23 X10^3/uL (0.83-4.51); Absolute Neutrophil Count 3.2 X10^3/uL (2.0-7.7); Basophil# 0.04 X10^3/uL; Basophil% 0.7 % (0-1); Eosinophil# 0.18 X10^3/uL; Eosinophils% 3.4 % (0-5); Hematocrit 36.1 % (40-54); Hemoglobin 11.9 g/dL (13.0-16.5); Lymphocyte # 1.23 X10^3/ul (0.83-4.51); Mean Corpuscular Hgb 30.1 pg (27.0-32.0); Mean Corpuscular Volume 91.2 fL (80-94); Mean Platelet Vol. 9.3 fl (6.2-12.0); Monocyte# 0.66 X10^3/uL; Monocyte% 12.4 % (0-10); NRBC Flagged by Analyzer 0 % (0-5); Neutrophil # 3.21 X10^3/uL (2.7-7.7); Neutrophil % 60.1 % (47-70); Platelet Count 262 K/mm3 (150-450); RBC Distribution Width CV 14.1 % (11.6-14.6); RBC Distribution Width SD 46.5 fl (35.1-43.9); Red Blood Count 3.96 M/mm3 (4.6-6.2); White Blood Count 5.3 K/mm3 (4.4-11.0)
[2024-07-01 13:26] LABS: BNP,B-Type NATRIURETIC PEPTIDE 60.1 pg/mL (0-100)
[2024-07-01 13:43] LABS: Anion Gap 7 (5-15); BUN 27 mg/dL (7-18); Calcium,Total 9.8 mg/dL (8.5-10.1); Chloride 103 mmol/L (98-107); Creatinine, Serum 1.35 mg/dL (0.70-1.30); EST Glomerular Filtration Rate 54 mL/min (>60); Est Glom Filt Rate - Afr Amer 66 mL/min (>60); Glucose 316 mg/dL (74-106); Potassium 4.9 mmol/L (3.5-5.1); Sodium Level 136 mmol/L (136-145)
== END | disposition home or self-care (01) ==
LOC: LAB 12:32
PROVIDERS: PCP Family Medicine Geriatric Medicine; Referring Provider Physician Assistant Medical; Visit Provider Physician Assistant Medical
DX: R07.1 Chest pain on breathing (principal); N18.30 Chronic kidney disease, stage 3 unspecified; I25.10 Atherosclerotic heart disease of native coronary artery without angina pectoris; Z95.1 Presence of aortocoronary bypass graft; Z87.09 Personal history of other diseases of the respiratory system; D64.9 Anemia, unspecified; R06.09 Other forms of dyspnea
CPT/HCPCS: 36415; 71046; 80048; 83880; 85025

== ENCOUNTER 2024-07-03 14:30 | Outpatient (RCR) | payer MEDICARE, OTHER, SELFPAY ==
[2024-05-13 05:40] VITALS: BMI 25.9
[2024-06-04 00:49] VITALS: BP 100/62
--- NOTE | 2024-06-12 09:38 | CR.ITP_ITS ---
Exercise - Initial Assessment Physician Prescribed Exercise Modalities: Treadmill, SciFit Stepper and SciFit Pro-II Ergometer Nutrition - Initial Assessment Weight Mgt (Other Care) Height: 6 ft Weight:: 193 lb BMI: 26.2 Psychosocial - Initial Assess Target Goals Target Goals Patient Health Questionnaire PHQ-9 Screening 60-Day Re-eval Assessment: 1. Little interest or pleasure in doing things: Not at all 2. Feeling down, depressed, or hopeless: Not at all 3. Trouble falling or staying asleep, or sleeping too much: Several days 4. Feeling tired or having little energy: More than half the days 5. Poor appetite or overeating: More than half the days 6. Feeling bad about yourself -- or that you are a failure or have let yourself or your family down: Not at all 7. Trouble concentrating on things, such as reading the newspaper or watching television: Not at all 8. Moving or speaking so slowly that other people could have noticed. Or the opposite - being so fidgety or restless that you have been moving around a lot more than usual: Not at all 9. Thoughts that you would be better off , or of hurting yourself in some way: Not at all How difficult have these problems made it for you to do your work, take care of things at home, or get along with other people?: Somewhat difficult Total Score: 5 Self-Efficacy 6-Item Scale 60-Day Re-eval Assessment: We would like to know how confident you are in doing certain activities. Please select your confidence level for: Fatigue Select Number: 5 Physical Discomfort or Pain Select Number: 7 Emotional Distress Select Number: 8 Other Symptoms or Health Problems Select Number: 7 Different Tasks and Activities Select Number: 6 Medication Select Number: 5 Total Score:: 6 Nutrition Survey Nutrition Survey Instructions Scoring Instructions Exercise - 30-day Assessment Physician Prescribed Exercise Modalities: Treadmill, SciFit Stepper and SciFit Pro-II Ergometer Exercise - 60-day Assessment Visit Date of Eval: 06/12/24 Session #:: 23 Physician Prescribed Exercise Modalities: Treadmill, SciFit Stepper and SciFit Pro-II Ergometer Frequency: 3x/week for 12 weeks [36 sessions] Intensity: 60-80% of age predicted maximum heart rate reserve Duration: 30 - 45 minutes Current METSs:: 3 Target Heart Rate:: 86-107 Current RPE:: 13 Maximum Excercise HR:: 100 Resting Blood Pressure: 130/70 Maximum Exercise Blood Pressure: 140/60 EKG Type: SR to ST with rare PAC's Current Physical Activity or Exercising minutes: 30-45 Outcomes & Goals Goals:: Verbalizes understanding of THR, RPE & goal METS by session 6, Documents in home exercise log/reports 30 min aerobic 5 day/wk by DC, Demonstrates accurate pulse taking by DC and Other additional outcome/goals: see below Intervention & Plan Exercise Program Goals: Instruct on personal THR & RPE, Instruct on MET level & personal MET goal, Show patient to take own pulse /validate performance until accurate, Instruct on home exercise and Other additional plan/int 30-day Reassessments 30 day Reassessments:: Progressing Reassessment Notes & Comments:: THR explained Physical Activity Home Exercise Physical Activity - Home Exercise: Safe Exercise, Warm-up, Self-monitoring, Cool-Down, Home Exercise > 30 min Daily and Sitting Time <3 hours/daily Outcomes & Goals Outcomes/Goals: Demonstrates correct Warm-up/exercise Cool-Down (S3) if = 2.5 METs, Verbalizes symptoms of exercise intolerance by Session 3 (S3), Demonstrate safe equipment use (S3) & follows exercise prescrition (6) and Other: See below Intervention & Plan Plan/Intervention: Instruct warm-up & cool-down if exercising at > 2 METs, Instruct on symptoms of exercise intolerance & actions to take, Instruct & monitor on saf, Assess intial functional capacity & safety risk and Other See below 30-day Reassessments 30 day Reassessments:: Progressing Reassessment Notes & Comments:: cool down explained Exercise - 90-day Assessment Physician Prescribed Exercise Modalities: Treadmill, SciFit Stepper and SciFit Pro-II Ergometer Exercise - Final/Discharge Physician Prescribed Exercise Modalities: Treadmill, SciFit Stepper and SciFit Pro-II Ergometer Nutrition - 30-Day Assessment Weight Mgt (Other Care) Height: 6 ft Weight:: 193 lb BMI: 26.2 Nutrition - 60-Day Assessment Program Goals Nutrition Program Goals Patient has diagnosis of Hyperlipidemia (ICD E78)?: Yes Visit Date of Eval: 06/12/24 Session #:: 23 Cholesterol/Lipids (Other Core Measures) Determine presence & major risk factors that modify LDL goal: Hypertension or hypertensive medication, Low HDL cholesterol <40 mg/dL*, Family history of premature CHD in Male < 55 years: female <65 yearsFa and Age men > 45 years; women >/= 55 years Outcomes/Goals: Pt IDs own risk factors & lifestyle modifications by Session 10, Verbalizes symptoms of angina & response by session 3., Pt independently manages and Other Additional Outcomes/Goals: Intervention/Plan: Advocate for lipid panel cholesterol medication if applicable, Instruct on personal lipid levels & lipid goals/NCEP guidelines, Instruct on cholesterol and Other additional plan/int Referral to dietitian:: No (pt declined) 30-day Reassessments:: Progressing Reassessment Notes & Comments:: pt to attend nutrition class Diabetes (Other Core Measures) Diabetes Type: Diagnosis Type II ICD-10 E11 Fasting blood glucose:: 270 Insulin dependent injection/pump?: Yes Non-Insulin Dependent?: Yes Do you monitor your blood sugar at home?: Yes Referral to Diabetic Clinic:: Yes Outcomes/Goals:: Able to state symptoms of, Able to state, Able to state and Other additional Intervention/Plan:: Instruct on, Refer to, Instruct on and Other 30-day Reassessments:: Progressing Reassessment Notes & Comments:: pt to attend nutrition class Weight Mgt (Other Care) Height: 6 ft Weight:: 193 lb BMI: 26.2 Diagnosis Overweight/Obesity BMI> 30% ICD-10 E66: No Diagnosis High BMI/Morbid Obesity BMI> 35% ICD-10 Z68: No Outcomes/Goals: Pt sets, maintains & shows weight loss goal & trend during rehab and Other additional outcomes/goals Intervention/Plan: Instruct on ideal BMI & set weight loss goal w/patient, Assist pt to ID & incorporate diet changes for weight loss by S9, Refer to Structured Weight Loss program as appropriate, Encourage goal of using 250- 300dcal per session for weight loss and Other additional plan/interventions 30 day Reassessments:: Progressing Reassessment Notes & Comments:: pt to attend nutrition class Healthy Eating Habits Will attend diet classes:: Yes Outcomes/Goals:: Consume diet rich in vegs,fruits,whole grain/high fiber,fish,lean meat, Limit sat/trans fats,cholesterol & added salts & sugars and Other additional outcome/goals: Intervention/Plan:: Assess current eating habits and Other Additional plan/interventions 30-day Reassessments:: Progressing Reassessment Notes & Comments:: pt to attend nutrition class Core - 60-Day Assessment Visit Date of Eval: 06/12/24 Session #:: 23 Medication Compliance Preventative Medication(s):: Aspirin, Statin/lipid and Beta quynh H/O mental health issues: depression, anxiety, or addiction?: No Doesn?t believe in the benefits of treatment?: No Believes medications are unnecessary or harmful?: No Has a concern about medication side effects?: No Expresses concern over the cost of medications?: No Outcomes/Goals: Verbalizes medications,desired effect & common side effects @ DC, Pt self-reports following medication regimen, Keeps card in wallet w/medications listed by DC and Other additional outcome/goals: Interventions/plans: Instruct on medication effects & side effects, Review medication list w/patient every two weeks, Instruct importance of taking meds as ordered & assist problem solving and Other additional 30-day Reassessments:: Progressing Reassessment Notes & Comments:: pt is taking his meds Tobacco Use Tobacco Use: Non-smoker Hypertension Hypertension Diagnosis:: Hypertension ICD-10 I10 Resting Blood Pressure:: 130/70 [place] [employer] Hypertension Guidelines Peak Exercise Blood Pressure:: 140/60 Outcomes/Goals: Able to verbalize/achieve optimal blood pressure <130/80, Incorporates diet changes & exercise for blood pressure control by DC and Other additional outcomes/goals Interventions/plan: Instruct on optimal blood pressure, hypertension & medications, Instruct on effects of sodium, alcohol, stress, exercise &hypertension and Other additional plan/interventions 30 day Reassessments:: Met Tobacco Cessation Referral Smoking Cessation Referral:: No Individual Education/Counseling:: No Education Schedule Given:: Yes Psychosocial - 30-Day Assess Target Goals Target Goals Outcomes/Goals: See list Psychosocial Outcomes/Goals:: ID's personal stressors & 2 strategies to manage stress by discharge and Other Additional outcome/goals: Psychosocial - 60-Day Assess VIsit Date of Eval: 06/12/24 Session #:: 23 History of previous Mental disease:: No Target Goals Target Goals Outcomes/Goals: See list Psychosocial Outcomes/Goals:: ID's personal stressors & 2 strategies to manage stress by discharge and Other Additional outcome/goals: 30-day Reassessments: 30 day Reassessments:: Met Psychosocial - 90-Day Assess Target Goals Target Goals Psychosocial - Final Assessmen Target Goals Target Goals Nutrition - 90-Day Assessment Weight Mgt (Other Care) Height: 6 ft Weight:: 193 lb BMI: 26.2 Nutrition - Final Assessment Weight Mgt (Other Care) Height: 6 ft Weight:: 193 lb BMI: 26.2
[2024-06-12 09:48] VITALS: BP 130/70; BMI 26.2
== END 2024-07-04 23:59 ==
LOC: CR 14:30
PROVIDERS: PCP Family Medicine Geriatric Medicine; Referring Provider Internal Medicine Cardiovascular Disease; Visit Provider Internal Medicine Cardiovascular Disease
DX: Z95.1 Presence of aortocoronary bypass graft (principal); I25.10 Atherosclerotic heart disease of native coronary artery without angina pectoris; E78.2 Mixed hyperlipidemia; I10 Essential (primary) hypertension
CPT/HCPCS: 93798

== ENCOUNTER 2024-07-15 14:30 | Outpatient (RCR) | payer MEDICARE, OTHER, SELFPAY ==
[2024-06-12 09:48] VITALS: BMI 26.2
[2024-07-05 00:51] VITALS: BP 100/62; BP 130/70
--- NOTE | 2024-07-14 07:19 | CR.ITP_ITS ---
Exercise - Initial Assessment Physician Prescribed Exercise Modalities: Treadmill, SciFit Stepper and SciFit Pro-II Ergometer Nutrition - Initial Assessment Weight Mgt (Other Care) Height: 6 ft Weight:: 196 lb BMI: 26.6 Psychosocial - Initial Assess Target Goals Target Goals Patient Health Questionnaire PHQ-9 Screening 90-Day Re-eval Assessment: 1. Little interest or pleasure in doing things: Not at all 2. Feeling down, depressed, or hopeless: Not at all 3. Trouble falling or staying asleep, or sleeping too much: Several days 4. Feeling tired or having little energy: More than half the days 5. Poor appetite or overeating: More than half the days 6. Feeling bad about yourself -- or that you are a failure or have let yourself or your family down: Not at all 7. Trouble concentrating on things, such as reading the newspaper or watching television: Not at all 8. Moving or speaking so slowly that other people could have noticed. Or the opposite - being so fidgety or restless that you have been moving around a lot more than usual: Not at all 9. Thoughts that you would be better off , or of hurting yourself in some way: Not at all How difficult have these problems made it for you to do your work, take care of things at home, or get along with other people?: Somewhat difficult Total Score: 5 Self-Efficacy 6-Item Scale 90-Day Re-eval Assessment: We would like to know how confident you are in doing certain activities. Please select your confidence level for: Fatigue Select Number: 5 Physical Discomfort or Pain Select Number: 7 Emotional Distress Select Number: 8 Other Symptoms or Health Problems Select Number: 7 Different Tasks and Activities Select Number: 6 Medication Select Number: 5 Total Score:: 6 Nutrition Survey Nutrition Survey Instructions Scoring Instructions Exercise - 30-day Assessment Physician Prescribed Exercise Modalities: Treadmill, SciFit Stepper and SciFit Pro-II Ergometer Exercise - 60-day Assessment Physician Prescribed Exercise Modalities: Treadmill, SciFit Stepper and SciFit Pro-II Ergometer Exercise - 90-day Assessment Visit Date of Eval: 07/14/24 Session #:: 35 Physician Prescribed Exercise Modalities: Treadmill, SciFit Stepper and SciFit Pro-II Ergometer Frequency: 3x/week for 12 weeks [36 sessions] Intensity: 60-80% of age predicted maximum heart rate reserve Duration: 30 - 45 minutes Current METSs:: 3.7 Target Heart Rate:: 86-107 Current RPE:: 13 Maximum Excercise HR:: 104 Resting Blood Pressure: 128/72 Maximum Exercise Blood Pressure: 140/72 EKG Type: NSR to ST with rare pacs Outcomes & Goals Goals:: Verbalizes understanding of THR, RPE & goal METS by session 6, Documents in home exercise log/reports 30 min aerobic 5 day/wk by DC, Demonstrates accurate pulse taking by DC and Other additional outcome/goals: see below Intervention & Plan Exercise Program Goals: Instruct on personal THR & RPE, Instruct on MET level & personal MET goal, Show patient to take own pulse /validate performance until accurate, Instruct on home exercise and Other additional plan/int 30-day Reassessments 30 day Reassessments:: Met Physical Activity Home Exercise Physical Activity - Home Exercise: Safe Exercise, Warm-up, Self-monitoring, Cool-Down, Home Exercise > 30 min Daily and Sitting Time <3 hours/daily Outcomes & Goals Outcomes/Goals: Demonstrates correct Warm-up/exercise Cool-Down (S3) if = 2.5 METs, Verbalizes symptoms of exercise intolerance by Session 3 (S3), Demonstrate safe equipment use (S3) & follows exercise prescrition (6) and Other: See below Intervention & Plan Plan/Intervention: Instruct warm-up & cool-down if exercising at > 2 METs, Instruct on symptoms of exercise intolerance & actions to take, Instruct & monitor on saf, Assess intial functional capacity & safety risk and Other See below 30-day Reassessments 30 day Reassessments:: Met Exercise - Final/Discharge Physician Prescribed Exercise Modalities: Treadmill, SciFit Stepper and SciFit Pro-II Ergometer Nutrition - 30-Day Assessment Weight Mgt (Other Care) Height: 6 ft Weight:: 196 lb BMI: 26.6 Nutrition - 60-Day Assessment Weight Mgt (Other Care) Height: 6 ft Weight:: 196 lb BMI: 26.6 Core - 90 Day Assessment Visit Date of Eval: 07/14/24 Session #:: 35 Medication Compliance Preventative Medication(s):: Aspirin, Statin/lipid and Beta quynh H/O mental health issues: depression, anxiety, or addiction?: No Doesn?t believe in the benefits of treatment?: No Believes medications are unnecessary or harmful?: No Has a concern about medication side effects?: No Expresses concern over the cost of medications?: No Outcomes/Goals: Verbalizes medications,desired effect & common side effects @ DC, Pt self-reports following medication regimen, Keeps card in wallet w/medications listed by DC and Other additional outcome/goals: Interventions/plans: Instruct on medication effects & side effects, Review medication list w/patient every two weeks, Instruct importance of taking meds as ordered & assist problem solving and Other additional 30-day Reassessments:: Met Tobacco Use Tobacco Use: Non-smoker 30-day Reassessments:: Met Hypertension Hypertension Diagnosis:: Hypertension ICD-10 I10 Resting Blood Pressure:: 128/72 [place] [employer] Hypertension Guidelines Peak Exercise Blood Pressure:: 140/72 Outcomes/Goals: Able to verbalize/achieve optimal blood pressure <130/80, Inco rporates diet changes & exercise for blood pressure control by DC and Other additional outcomes/goals Interventions/plan: Instruct on optimal blood pressure, hypertension & med ications, Instruct on effects of sodium, alcohol, stress, exercise &hypertension and Other additional plan/interventions 30 day Reassessments:: Met Tobacco Cessation Referral Smoking Cessation Referral:: No Individual Education/Counseling:: No Education Schedule Given:: Yes Psychosocial - 30-Day Assess Target Goals Target Goals Psychosocial - 60-Day Assess Target Goals Target Goals Psychosocial - 90-Day Assess VIsit Date of Eval: 07/14/24 Session #:: 35 History of previous Mental disease:: No Target Goals Target Goals Outcomes/Goals: See list Psychosocial Outcomes/Goals:: ID's personal stressors & 2 strategies to manage stress by discharge and Other Additional outcome/goals: Intervention/Plan: See List Interventions/Plan:: Assess stressors,coping strategies & signs of derpression on admission, Instruct/assist pt to develop coping & personal stress Mgt strategies, Refer to Behavioral Health if appropriate, Refer to Physician if appropriate, Instruct patient to recognize signs & symptoms of depression, Instruct patient to recog and Other additional plan/intervention 30-day Reassessments: 30 day Reassessments:: Met Psychosocial - Final Assessmen Target Goals Target Goals Nutrition - 90-Day Assessment Program Goals Nutrition Program Goals Patient has diagnosis of Hyperlipidemia (ICD E78)?: Yes Visit Date of Eval: 07/14/24 Session #:: 35 Cholesterol/Lipids (Other Core Measures) Determine presence & major risk factors that modify LDL goal: Hypertension or hypertensive medication, Low HDL cholesterol <40 mg/dL*, Family history of premature CHD in Male < 55 years: female <65 yearsFa and Age men > 45 years; women >/= 55 years Outcomes/Goals: Pt IDs own risk factors & lifestyle modifications by Session 10, Verbalizes symptoms of angina & response by session 3., Pt independently manages and Other Additional Outcomes/Goals: Intervention/Plan: Advocate for lipid panel cholesterol medication if applicable, Instruct on personal lipid levels & lipid goals/NCEP guidelines, Instruct on cholesterol and Other additional plan/int 30-day Reassessments:: Met Diabetes (Other Core Measures) Diabetes Type: Diagnosis Type II ICD-10 E11 Fasting blood glucose:: 260 Insulin dependent injection/pump?: Yes Non-Insulin Dependent?: Yes Do you monitor your blood sugar at home?: Yes Outcomes/Goals:: Able to state symptoms of, Able to state, Able to state and Other additional Intervention/Plan:: Instruct on, Refer to, Instruct on and Other 30-day Reassessments:: Met Weight Mgt (Other Care) Height: 6 ft Weight:: 196 lb BMI: 26.6 Diagnosis Overweight/Obesity BMI> 30% ICD-10 E66: No Diagnosis High BMI/Morbid Obesity BMI> 35% ICD-10 Z68: No Outcomes/Goals: Pt sets, maintains & shows weight loss goal & trend during rehab and Other additional outcomes/goals Intervention/Plan: Instruct on ideal BMI & set weight loss goal w/patient, Assist pt to ID & incorporate diet changes for weight loss by S9, Refer to Structured Weight Loss program as appropriate, Encourage goal of using 250- 300dcal per session for weight loss and Other additional plan/interventions 30 day Reassessments:: Met Healthy Eating Habits Will attend diet classes:: Yes Outcomes/Goals:: Consume diet rich in vegs,fruits,whole grain/high fiber,fish,lean meat, Limit sat/trans fats,cholesterol & added salts & sugars and Other additional outcome/goals: Intervention/Plan:: Assess current eating habits and Other Additional plan/interventions 30-day Reassessments:: Met Education Gave educational materials for:: Signs & symptoms of hypoglycemia, Signs & symptoms of hyperglycemia, Relate diabetes to coronary artery disease and Healthy eating Nutrition - Final Assessment Weight Mgt (Other Care) Height: 6 ft Weight:: 196 lb BMI: 26.6
[2024-07-14 07:28] VITALS: BP 128/72; BMI 26.6
== END 2024-08-03 23:59 ==
LOC: CR 14:30
PROVIDERS: PCP Family Medicine Geriatric Medicine; Referring Provider Internal Medicine Cardiovascular Disease; Visit Provider Internal Medicine Cardiovascular Disease
DX: I25.10 Atherosclerotic heart disease of native coronary artery without angina pectoris (principal); E78.2 Mixed hyperlipidemia; I10 Essential (primary) hypertension; Z95.1 Presence of aortocoronary bypass graft
CPT/HCPCS: 93798

== ENCOUNTER → 2024-08-25 | Outpatient (CLI) | payer MEDICARE, OTHER, SELFPAY ==
[2024-08-11 15:00] VITALS: BMI 26.6
[2024-08-25 16:49] LABS: PSA,Total- Diagnostic < 0.01 ng/mL (0.0-4.0)
== END | disposition home or self-care (01) ==
LOC: BIMLAB 14:33
PROVIDERS: PCP Family Medicine Geriatric Medicine; Visit Provider Family Medicine Geriatric Medicine
DX: C61 Malignant neoplasm of prostate (principal)
CPT/HCPCS: 36415; 84153

== ENCOUNTER → 2024-09-07 | Outpatient (CLI) | payer MEDICARE, OTHER, SELFPAY ==
[2024-08-11 15:00] VITALS: BMI 26.6
[2024-09-07 14:00] LABS: Absolute Lymphocyte Count 1.77 X10^3/uL (0.83-4.51); Absolute Neutrophil Count 4.2 X10^3/uL (2.0-7.7); Basophil# 0.07 X10^3/uL; Eosinophil# 0.18 X10^3/uL; Eosinophils% 2.5 % (0-5); Hematocrit 36.3 % (40-54); Hemoglobin 12.3 g/dL (13.0-16.5); Lymphocyte # 1.77 X10^3/ul (0.83-4.51); Mean Corp Hgb Conc 33.9 g/dL (32-36); Mean Corpuscular Hgb 31.2 pg (27.0-32.0); Mean Corpuscular Volume 92.1 fL (80-94); Monocyte# 0.81 X10^3/uL; Monocyte% 11.5 % (0-10); NRBC Flagged by Analyzer 0 % (0-5); Neutrophil # 4.16 X10^3/uL (2.7-7.7); Neutrophil % 58.9 % (47-70); Platelet Count 311 K/mm3 (150-450); RBC Distribution Width CV 13.4 % (11.6-14.6); RBC Distribution Width SD 45.7 fl (35.1-43.9); Red Blood Count 3.94 M/mm3 (4.6-6.2); White Blood Count 7.1 K/mm3 (4.4-11.0)
[2024-09-07 14:30] LABS: Vitamin D,25 Hydroxy 37.3 ng/mL
[2024-09-07 14:39] LABS: ALB/GLOB Ratio 0.9 RATIO (0.9-2.4); AST(SGOT) 44 U/L (15-37); Alanine Aminotransfer ALT/SGPT 17 U/L (16-61); Albumin, Serum 3.5 g/dL (3.2-5.0); Alkaline Phosphatase 124 U/L (45-117); Anion Gap 5 (5-15); BUN 29 mg/dL (7-18); BUN/Creat Ratio 20.6 RATIO (10-20); Chloride 105 mmol/L (98-107); Creatinine, Serum 1.41 mg/dL (0.70-1.30); EST Glomerular Filtration Rate 52 mL/min (>60); Est Glom Filt Rate - Afr Amer 63 mL/min (>60); Globulin 3.7 g/dL (2.2-4.2); Glucose 253 mg/dL (74-106); Potassium 5.3 mmol/L (3.5-5.1); Protein, Total 7.2 g/dL (6.4-8.2); Sodium Level 138 mmol/L (136-145)
== END | disposition home or self-care (01) ==
LOC: POLAB3 13:45
PROVIDERS: PCP Family Medicine Geriatric Medicine; Referring Provider Family Medicine Geriatric Medicine; Visit Provider Family Medicine Geriatric Medicine
DX: E11.65 Type 2 diabetes mellitus with hyperglycemia (principal); E55.9 Vitamin D deficiency, unspecified; I10 Essential (primary) hypertension
CPT/HCPCS: 36415; 80053; 82306; 84443; 85025

== ENCOUNTER → 2024-09-08 | Outpatient (CLI) | payer MEDICARE, OTHER, SELFPAY ==
[2024-08-11 15:00] VITALS: BMI 26.6
[2024-09-08 16:36] LABS: Anion Gap 6 (5-15); BUN 29 mg/dL (7-18); BUN/Creat Ratio 22.5 RATIO (10-20); Calcium,Total 9.7 mg/dL (8.5-10.1); Chloride 105 mmol/L (98-107); Creatinine, Serum 1.29 mg/dL (0.70-1.30); EST Glomerular Filtration Rate 57 mL/min (>60); Est Glom Filt Rate - Afr Amer 69 mL/min (>60); Glucose 227 mg/dL (74-106); Potassium 4.7 mmol/L (3.5-5.1); Sodium Level 137 mmol/L (136-145)
== END | disposition home or self-care (01) ==
LOC: POLAB3 15:24
PROVIDERS: PCP Family Medicine Geriatric Medicine; Visit Provider Family Medicine Geriatric Medicine
DX: E78.5 Hyperlipidemia, unspecified (principal)
CPT/HCPCS: 36415; 80048

== ENCOUNTER → 2024-11-05 | Outpatient (CLI) | payer MEDICARE, OTHER, SELFPAY ==
[2024-08-11 15:00] VITALS: BMI 26.6
== END | disposition home or self-care (01) ==
LOC: POLAB3 10:55
PROVIDERS: PCP Family Medicine Geriatric Medicine; Visit Provider Family Medicine Geriatric Medicine
DX: R68.83 Chills (without fever) (principal)
CPT/HCPCS: 87631

== ENCOUNTER → 2024-12-08 | Outpatient (CLI) | payer MEDICARE, OTHER, SELFPAY ==
[2024-08-11 15:00] VITALS: BMI 26.6
[2024-12-08 13:38] LABS: Absolute Neutrophil Count 4.1 X10^3/uL (2.0-7.7); Basophil# 0.04 X10^3/uL; Basophil% 0.6 % (0-1); Eosinophil# 0.18 X10^3/uL; Eosinophils% 2.8 % (0-5); Hematocrit 36.8 % (40-54); Hemoglobin 12.1 g/dL (13.0-16.5); Mean Corp Hgb Conc 32.9 g/dL (32-36); Mean Corpuscular Hgb 30.6 pg (27.0-32.0); Mean Corpuscular Volume 93.2 fL (80-94); Mean Platelet Vol. 9.1 fl (6.2-12.0); Monocyte# 0.74 X10^3/uL; Monocyte% 11.7 % (0-10); NRBC Flagged by Analyzer 0 % (0-5); Neutrophil # 4.12 X10^3/uL (2.7-7.7); Neutrophil % 65.3 % (47-70); Platelet Count 302 K/mm3 (150-450); RBC Distribution Width CV 13.3 % (11.6-14.6); RBC Distribution Width SD 45.5 fl (35.1-43.9); Red Blood Count 3.95 M/mm3 (4.6-6.2); White Blood Count 6.3 K/mm3 (4.4-11.0)
[2024-12-08 14:03] LABS: Vitamin D,25 Hydroxy 45.6 ng/mL
[2024-12-08 14:10] LABS: ALB/GLOB Ratio 0.7 RATIO (0.9-2.4); AST(SGOT) 12 U/L (15-37); Alanine Aminotransfer ALT/SGPT 12 U/L (16-61); Alkaline Phosphatase 112 U/L (45-117); Anion Gap 5 (5-15); BUN 26 mg/dL (7-18); BUN/Creat Ratio 19.8 RATIO (10-20); Calcium,Total 9.7 mg/dL (8.5-10.1); Chloride 101 mmol/L (98-107); Creatinine, Serum 1.31 mg/dL (0.70-1.30); EST Glomerular Filtration Rate 56 mL/min (>60); Est Glom Filt Rate - Afr Amer 68 mL/min (>60); Globulin 4.1 g/dL (2.2-4.2); Glucose 243 mg/dL (74-106); Potassium 4.7 mmol/L (3.5-5.1); Protein, Total 7.1 g/dL (6.4-8.2); Sodium Level 136 mmol/L (136-145)
== END | disposition home or self-care (01) ==
LOC: POLAB3 13:18
PROVIDERS: PCP Family Medicine Geriatric Medicine; Visit Provider Family Medicine Geriatric Medicine
DX: E11.65 Type 2 diabetes mellitus with hyperglycemia (principal); E55.9 Vitamin D deficiency, unspecified; I10 Essential (primary) hypertension
CPT/HCPCS: 36415; 80053; 82306; 84443; 85025

== ENCOUNTER → 2024-12-10 | Outpatient (CLI) | payer MEDICARE, OTHER, SELFPAY ==
[2024-08-11 15:00] VITALS: BMI 26.6
== END | disposition home or self-care (01) ==
PROVIDERS: PCP Family Medicine Geriatric Medicine; Referring Provider Family Medicine Geriatric Medicine; Visit Provider Family Medicine Geriatric Medicine
DX: E27.0 Other adrenocortical overactivity (principal)
CPT/HCPCS: 36415; 82533

== ENCOUNTER → 2024-12-15 | Outpatient (CLI) | payer MEDICARE, OTHER, SELFPAY ==
[2024-08-11 15:00] VITALS: BMI 26.6
--- NOTE | 2024-12-15 08:23 | MRI_ITS ---
PROCEDURE: SPINE LUMBAR W/WO CONTRAST REASON FOR EXAM: Lumbar radiculopathy. TECHNIQUE: Lumbar spine MRI without and with and without intravenous gadolinium-based contrast. CONTRAST: Intravenous Clariscan 17 mL. COMPARISON: None available. FINDINGS: Vertebrae: Lumbar vertebral body heights are preserved. Bone marrow signal is unremarkable. Alignment: Normal. No spondylolisthesis. Conus Medullaris: Normally positioned. On sagittal images, mild degenerative changes are seen throughout the lumbar spine, also with mild L4-L5 disc space narrowing. L1-2: Unremarkable L2-3: A slight disc bulge is noted. No spinal canal stenosis or neural foraminal narrowing is seen. L3-4: A very small annular tear is noted. No significant disc bulge or herniation is seen. No spinal canal stenosis or neural foraminal narrowing is evident. L4-5: Mild posterior facet and ligamentum flavum hypertrophy is noted. A mild degree of spinal canal narrowing is noted in the presence of a mild diffuse disc bulge. No significant degree of neural foraminal narrowing is evident. L5-S1: Mild posterior facet hypertrophy is seen. No significant spinal canal stenosis or neural foraminal narrowing is seen. Limited visualization of the bilateral sacroiliac joints shows partial bridging fusion anteriorly. Postcontrast images: Unremarkable MRI/Spine Lumbar W/WO Contrast IMPRESSION: Multilevel lumbar degenerative disc disease, as described, also with mild L4-L5 spinal canal narrowing. Reading Location: [address]
[2024-12-15 11:23] LABS: PSA,Total- Diagnostic < 0.01 ng/mL (0.0-4.0)
== END | disposition home or self-care (01) ==
PROVIDERS: PCP Family Medicine Geriatric Medicine; Referring Provider Family Medicine Geriatric Medicine; Visit Provider Family Medicine Geriatric Medicine
DX: M54.16 Radiculopathy, lumbar region (principal); C61 Malignant neoplasm of prostate; M54.50 Low back pain, unspecified; M54.32 Sciatica, left side; M25.552 Pain in left hip
CPT/HCPCS: 36415; 72158; 84153; A9575

== ENCOUNTER → 2024-12-16 | Outpatient (CLI) | payer MEDICARE, OTHER, SELFPAY ==
[2024-08-11 15:00] VITALS: BMI 26.6
== END | disposition home or self-care (01) ==
PROVIDERS: PCP Family Medicine Geriatric Medicine; Referring Provider Family Medicine Geriatric Medicine; Visit Provider Family Medicine Geriatric Medicine
DX: E27.0 Other adrenocortical overactivity (principal)
CPT/HCPCS: 36415; 82533

== ENCOUNTER → 2024-12-24 | Outpatient (CLI) | payer MEDICARE, OTHER, SELFPAY ==
[2024-08-11 15:00] VITALS: BMI 26.6
--- NOTE | 2024-12-24 13:20 | MRI_ITS ---
PROCEDURE: MRI left hip without and with IV contrast REASON FOR EXAM: Pain, history of prostate carcinoma and bone metastatic disease TECHNIQUE: Multisequence multiplanar MR images of the pelvis and left hip were obtained before and after the administration of intravenous contrast. Imaging sequences were performed to best displaced suspected pathology. COMPARISON: None. FINDINGS Large marrow replacing lesion in the left iliac bone superior to the acetabulum measuring approximately 4.8 x 2.3 x 6.5 cm (AP, TV and CC dimensions). Two additional marrow replacing lesions in the left femoral neck and trochanter measuring 1.9 cm and 1.5 cm respectively. Additional ill-defined marrow replacing foci in the left ischial tuberosity. All bone lesions demonstrate enhancement. No pathologic fracture at this time. No left hip joint effusion or significant synovitis. No significant arthropathy. No displaced labral tear or paralabral cysts. Major tendons about the left hip are intact. No acute findings within the pelvis. Mild generalized muscular atrophy. No significant muscular edema or discrete mass as visualized. No bursal fluid collections. MRI/Lower Ext Joint Only W/WO Cont IMPRESSION: Scattered metastatic lesions throughout the left pelvis and proximal left femur as above. No pathologic fracture at this time. Orthopedic consultation recommended. Reading Location: [facility]
== END | disposition home or self-care (01) ==
LOC: MRI 13:05
PROVIDERS: PCP Family Medicine Geriatric Medicine; Referring Provider Family Medicine Geriatric Medicine; Visit Provider Family Medicine Geriatric Medicine
DX: C61 Malignant neoplasm of prostate (principal); M54.16 Radiculopathy, lumbar region; M54.32 Sciatica, left side; M25.552 Pain in left hip
CPT/HCPCS: 73723; A9575

== ENCOUNTER → 2025-01-11 | Outpatient (CLI) | payer MEDICARE, OTHER, SELFPAY ==
[2024-08-11 15:00] VITALS: BMI 26.6
[2025-01-11 11:44] LABS: CORTISOL AM 3.12 ug/dL (6.02-18.40)
== END | disposition home or self-care (01) ==
LOC: LAB 09:25
PROVIDERS: PCP Family Medicine Geriatric Medicine; Referring Provider Family Medicine Geriatric Medicine; Visit Provider Family Medicine Geriatric Medicine
DX: E24.9 Cushing's syndrome, unspecified (principal)
CPT/HCPCS: 36415; 82533

== ENCOUNTER → 2025-01-15 | Outpatient (CLI) | payer MEDICARE, OTHER, SELFPAY ==
[2024-08-11 15:00] VITALS: BMI 26.6
== END | disposition home or self-care (01) ==
LOC: POLAB3 10:02
PROVIDERS: PCP Family Medicine Geriatric Medicine; Visit Provider Family Medicine Geriatric Medicine
DX: E24.9 Cushing's syndrome, unspecified (principal)

== ENCOUNTER → 2025-01-19 | Outpatient (CLI) | payer MEDICARE, OTHER, SELFPAY ==
[2024-08-11 15:00] VITALS: BMI 26.6
--- NOTE | 2025-01-19 09:54 | NM_ITS ---
PROCEDURE: BONE SCAN WHOLE BODY REASON FOR EXAM: RESTAGING METS PROSTATE CANCER History of left hip pain. TECHNIQUE: delayed phase imaging of the whole-body after radiopharmaceutical administration 26 mCi of technetium labeled MDP RADIOPHARMACEUTICAL: 26 mCi Technetium-99m MDP IV COMPARISON: Comparison is made with prior study dated June 06, 2020. FINDINGS: Delayed: Focal uptake in the posterior aspect of the left 9th rib. Increased uptake also seen in the left anterior iliac bone. Focal increased uptake also seen in the left intertrochanteric region of the proximal femur. The previously seen radiopharmaceutical uptake along the left inferior pubic ramus is not seen at this time. NM/Bone Scan Whole Body IMPRESSION: Increased uptake in the anterior left iliac bone as well as in the intertrochan teric region of the proximal left femur. Focal uptake also seen in the posterior medial aspect of the left 9th rib. Metastati c deposit should be ruled out. Reading Location: [id number]
== END | disposition home or self-care (01) ==
LOC: NM 09:51
PROVIDERS: PCP Family Medicine Geriatric Medicine; Referring Provider Internal Medicine Hematology & Oncology; Visit Provider Internal Medicine Hematology & Oncology
DX: C61 Malignant neoplasm of prostate (principal)
CPT/HCPCS: 78306; A9503

== ENCOUNTER → 2025-01-26 | Outpatient (CLI) | payer MEDICARE, OTHER, SELFPAY ==
[2024-08-11 15:00] VITALS: BMI 26.6
[2025-01-26 13:19] LABS: CORTISOL AM 9.82 ug/dL (6.02-18.40)
== END | disposition home or self-care (01) ==
PROVIDERS: PCP Family Medicine Geriatric Medicine; Referring Provider Family Medicine Geriatric Medicine; Visit Provider Family Medicine Geriatric Medicine
DX: E24.9 Cushing's syndrome, unspecified (principal)
CPT/HCPCS: 36415; 82533

== ENCOUNTER → 2025-02-09 | Outpatient (CLI) | payer MEDICARE, OTHER, SELFPAY ==
[2024-08-11 15:00] VITALS: BMI 26.6
== END | disposition home or self-care (01) ==
LOC: LABSPEC 15:05
PROVIDERS: PCP Family Medicine Geriatric Medicine; Referring Provider Family Medicine Geriatric Medicine; Visit Provider Family Medicine Geriatric Medicine
DX: J98.8 Other specified respiratory disorders (principal); R05.9 Cough, unspecified; R06.2 Wheezing
CPT/HCPCS: 87631

== ENCOUNTER → 2025-02-23 | Outpatient (CLI) | payer MEDICARE, OTHER, SELFPAY ==
[2024-08-11 15:00] VITALS: BMI 26.6
[2025-02-23 16:33] LABS: Hemoglobin A1c 8.2 % (<=5.6)
[2025-02-25 13:08] LABS: Adrenocorticotropic Hormone 27.1 pg/mL (7.2-63.3); DHEA Sulfate 29.3 ug/dL (20.8-226.4)
== END | disposition home or self-care (01) ==
PROVIDERS: PCP Family Medicine Geriatric Medicine; Referring Provider Family Medicine Geriatric Medicine; Visit Provider Family Medicine Geriatric Medicine
DX: E24.9 Cushing's syndrome, unspecified (principal)
CPT/HCPCS: 36415; 82024; 82627; 83036; 82626

== ENCOUNTER → 2025-03-18 | Outpatient (CLI) | payer MEDICARE, OTHER, SELFPAY ==
[2024-08-11 15:00] VITALS: BMI 26.6
[2025-03-18 17:52] LABS: PSA,Total- Diagnostic < 0.02 ng/mL (0.00-4.00)
== END | disposition home or self-care (01) ==
LOC: LAB 16:10
PROVIDERS: PCP Family Medicine Geriatric Medicine; Referring Provider Urology; Visit Provider Urology
DX: C61 Malignant neoplasm of prostate (principal)
CPT/HCPCS: 36415; 84153

== ENCOUNTER → 2025-03-30 | Outpatient (CLI) | payer MEDICARE, OTHER, SELFPAY ==
[2024-08-11 15:00] VITALS: BMI 26.6
--- NOTE | 2025-03-30 10:21 | NM_ITS ---
PROCEDURE: BONE SCAN WHOLE BODY 03/30/2025 REASON FOR EXAM: PROSTATE CANCER, bone metastases TECHNIQUE: Whole-body planar images and anterior and posterior projection, following radiotracer administration RADIOPHARMACEUTICAL: 24.6 mCi Technetium-99m MDP IV COMPARISON: January 19, 2025 FINDINGS: There is persistent focal abnormal increased radiotracer activity in posterior left 9th rib, unchanged. There are 2 discrete foci in the left hip, trochanteric region, similar to the prior. There is marked increased abnormal activity in the left iliac, similar to the prior. There is a focus of abnormal increased activity in the right aspect at the level of the 1st costo sternal articulation, new. NM/Bone Scan Whole Body IMPRESSION: There is persistent focal abnormal increased radiotracer activity in posterior left 9th rib, unchanged. There are 2 discrete foci in the left hip, trochanteric region, similar to the prior. There is marked increased abnormal activity in the left iliac, similar to the p rior. There is a focus of abnormal increased activity in the right aspect at the leve l of the 1st costo sternal articulation, new. Reading Location: [facility]
== END | disposition home or self-care (01) ==
LOC: NM 10:20
PROVIDERS: PCP Family Medicine Geriatric Medicine; Referring Provider Internal Medicine Hematology & Oncology; Visit Provider Internal Medicine Hematology & Oncology
DX: C61 Malignant neoplasm of prostate (principal); C79.51 Secondary malignant neoplasm of bone
CPT/HCPCS: 78306; A9503

== ENCOUNTER → 2025-06-10 | Outpatient (CLI) | payer MEDICARE, OTHER, SELFPAY ==
[2024-08-11 15:00] VITALS: BMI 26.6
[2025-06-10 13:47] LABS: Hematocrit 36.3 % (40-54); Hemoglobin 12.3 g/dL (13.0-16.5); Immature Granulocytes Count 0.020 X10^3/uL (0.0-0.0); Mean Corp Hgb Conc 33.9 g/dL (32-36); Mean Corpuscular Volume 92.8 fL (80-94); Mean Platelet Vol. 9.5 fl (6.2-12.0); NRBC Flagged by Analyzer 0 % (0-5); Platelet Count 286 K/mm3 (150-450); RBC Distribution Width CV 13.2 % (11.6-14.6); RBC Distribution Width SD 44.6 fl (35.1-43.9); Red Blood Count 3.91 M/mm3 (4.6-6.2); White Blood Count 5.3 K/mm3 (4.4-11.0)
[2025-06-10 14:43] LABS: AST(SGOT) 15 U/L (<=37); Alanine Aminotransfer ALT/SGPT 10 U/L (<=46); Albumin, Serum 4.1 g/dL (3.4-4.8); Alkaline Phosphatase 99 U/L (40-129); Anion Gap 14 (5-15); BUN 24 mg/dL (4-19); BUN/Creat Ratio 17.8 RATIO (10-20); Calcium,Total 9.6 mg/dL (7.6-11.0); Carbon Dioxide 23.4 mmol/L (21.0-32.0); Chloride 102 mmol/L (98-108); Globulin 2.6 g/dL (2.2-4.2); Glucose 267 mg/dL (70-99); Potassium 5.1 mmol/L (3.3-5.1); Vitamin D,25 Hydroxy 45.9 ng/mL (30-100)
[2025-06-10 21:35] LABS: Xtra Tube Kwok EXTRA TUBE
== END | disposition home or self-care (01) ==
LOC: POLAB3 13:35
PROVIDERS: PCP Family Medicine Geriatric Medicine; Visit Provider Family Medicine Geriatric Medicine
DX: E11.65 Type 2 diabetes mellitus with hyperglycemia (principal); I10 Essential (primary) hypertension; E55.9 Vitamin D deficiency, unspecified
CPT/HCPCS: 36415; 80053; 82306; 84443; 85025

== ENCOUNTER → 2025-06-21 | Outpatient (CLI) | payer MEDICARE, OTHER, SELFPAY ==
[2024-08-11 15:00] VITALS: BMI 26.6
[2025-06-21 16:37] LABS: PSA,Total - Annual Screen < 0.02 ng/mL (0.02-4.00)
== END | disposition home or self-care (01) ==
LOC: LAB 15:15
PROVIDERS: PCP Family Medicine Geriatric Medicine; Referring Provider Urology; Visit Provider Urology
DX: C61 Malignant neoplasm of prostate (principal)
CPT/HCPCS: 36415; 84153; G0103

== ENCOUNTER → 2025-07-06 | Outpatient (CLI) | payer MEDICARE, OTHER, SELFPAY ==
[2024-08-11 15:00] VITALS: BMI 26.6
--- NOTE | 2025-07-06 09:28 | NM_ITS ---
PROCEDURE: BONE SCAN WHOLE BODY 07/06/2025 REASON FOR EXAM: MALIGNANT NEOPLASM OF PROSTATE TECHNIQUE: Procedure Code: NMBO Modality: NM Procedure: BONE SCAN WHOLE BODY Whole-body bone scan with anterior and posterior views. Imaging at 3.5 hours. RADIOPHARMACEUTICAL: 28.3 mCi Technetium-99m MDP IV COMPARISON: Whole-body bone scan, 03/30/2025. FINDINGS: Bones: There has been interval development of additional foci of bony metastatic disease in the right side of the skull, in the head of the right femur, and in the apex of the left iliac wing. There has been interval increase in activity of bony metastatic disease in the right scapula, the left 8th rib, the left 11th rib and the right side of the manubrium. There has been interval decrease in intensity of activity in the anterior aspect of the left iliac wing and in the left proximal femur. Kidneys: Normal activity is noted in the kidneys and urinary bladder. NM/Bone Scan Whole Body IMPRESSION: Mixed response to therapy for bony metastatic disease. Reading Location: [id number]
--- NOTE | 2025-07-06 13:50 | RAD_ITS ---
EXAM: XR Left Femur, 2 Views CLINICAL INDICATION: UPPER LEFT LEG PAIN TECHNIQUE: Frontal and lateral views of the left femur. COMPARISON: No relevant prior studies available. FINDINGS: BONES/JOINTS: Mild degenerative changes of the hip and knee joints. No acute fracture. No dislocation. SOFT TISSUES: Unremarkable. VASCULATURE: Vascular calcification. RAD/Femur Min 2 Views IMPRESSION: Degenerative changes as above. Reading Location: [id number]
== END | disposition home or self-care (01) ==
PROVIDERS: PCP Family Medicine Geriatric Medicine; Referring Provider Urology; Visit Provider Urology
DX: C61 Malignant neoplasm of prostate (principal)
CPT/HCPCS: 73552; 78306; A9503